=== PATIENT | female | born 1950 | race Caucasian/White ===

== ENCOUNTER 2017-06-08 17:26 | Inpatient (IN) ==
[2017-06-08] MEDS ORDERED: Aspirin 81 MG TAB.CHEW PO STA (17:36)
--- NOTE | 2017-06-08 17:45 | Emergency Department Note ---
Disposition Clinical Impression: Atrial fibrillation Qualifiers: Atrial fibrillation type: paroxysmal Qualified Code(s): I48.0 - Paroxysmal atrial fibrillation Disposition: Admitted As Inpatient Condition: Good Referrals: Dennys Mckeon DO [Primary Care Provider] - Forms: ED Satisfaction Letter Time of Disposition: 18:46 General Adult HPI - General Stated complaint: "afib" Time Seen by Provider: 06/08/17 17:29 Nursing Notes Reviewed: Yes Vital Signs Reviewed: Yes - History of Present Illness HPI Narrative: Patient sent by Dr. Serna for an abnormal Holter monitor. Patient states that she did have an episode of chest pain on Sunday 4 days ago as well as Sunday 6 days ago. Denies any chest pain at this time. - Related Data Home Medications Medication Instructions Recorded Confirmed Albuterol Sulfate [Albuterol 2 puff IH Q6HR 11/15/14 06/08/17 Inhaler] Atorvastatin [Lipitor] 40 mg PO QPM 11/15/14 06/08/17 Gabapentin [Neurontin] 600 mg PO BID 11/15/14 06/08/17 Montelukast [Singulair] 10 mg PO DAILY PRN 11/15/14 06/08/17 Omeprazole [PriLOSEC] 20 mg PO DAILY 11/15/14 06/08/17 Budesonide/Formoterol 160/4.5 2 puff IH BIDR 06/08/17 06/08/17 [Symbicort 160/4.5] Ferrous Sulfate [Ferrous Sulfate] 325 mg PO DAILY 06/08/17 06/08/17 Metoprolol XL (24 HR) Succ [Toprol 50 mg PO DAILY 06/08/17 06/08/17 XL] Risedronate Sodium [Actonel] 35 mg PO MO 06/08/17 06/08/17 Tramadol HCl [Ultram] 50 mg PO Q8H PRN 06/08/17 06/08/17 predniSONE [PredniSONE] 10 mg PO DAILY 06/08/17 06/08/17 Previous Rx's Medication Instructions Recorded Aspirin 81 mg PO DAILY 30 Days tab.chew 11/17/14 Rivaroxaban [Xarelto] 20 mg PO 1700 30 Days tablet 11/17/14 Allergies Allergy/AdvReac Type Severity Reaction Status Date / Time codeine AdvReac See Verified 11/15/14 14:30 Comments All systems ED: reviewed and negative except as stated. Constitutional: Denies: fever, chills ENT ED: Reports: congestion Cardiovascular: Reports: chest pain (Not at this time. Did have an episode on Sunday as well as Sunday.), palpitations (Regional. None at this time.) Respiratory: Reports: cough. Denies: dyspnea Gastrointestinal: Denies: abdominal pain, nausea, vomiting, diarrhea Musculoskeletal: Denies: back pain, neck pain Integumentary: Denies: rash Neurological: Denies: headache, weakness Past Medical History - Past Medical History Attestation: Yes The following information was validated with the patient. Source: patient Medical history: Reports: asthma, atrial fibrillation, COPD, coronary artery disease, GERD, hyperlipidemia, hypertension, other Surgical history: Reports: carotid endarterectomy, cholecystectomy, coronary bypass (CABG), hysterectomy Psychiatric history: Reports: no psych history - Social History Smoking Status: Former smoker Smokeless Tobacco Status: No Alcohol use: Reports: none Drug use: Reports: none Physical Exam - General Limitations: no limitations General appearance: alert, in no apparent distress - Head Head exam: atraumatic, normocephalic, normal inspection - Eye Eye exam: Present: normal appearance, PERRL, EOMI. Absent: scleral icterus - ENT ENT exam: normal exam, normal oropharynx, mucous membranes moist - Neck Neck exam: Present: normal inspection, full ROM, trachea midline - Chest Chest inspection: Present: normal inspection, symmetric chest wall rise - Respiratory Respiratory exam: Present: wheezes (Mild), prolonged expiratory phase. Absent: respiratory distress, accessory muscle use - Cardiovascular Cardiovascular exam: Present: regular rate, normal rhythm - Abdominal Exam Abdominal exam: Present: soft, Non-Tender. Absent: tenderness, distention, guarding, rebound, rigidity, organomegaly - Extremities Exam Extremities exam: Present: normal inspection, full ROM. Absent: tenderness, pedal edema - Neurological Exam Neurological exam: Present: alert, oriented X3 - Psychiatric Psychiatric exam: Present: normal affect, normal mood - Skin Skin exam: Present: warm, dry, intact, normal color Course Course Narrative: Well appearing female patient ambulates without difficulty. She was sent here by Dr. Serna for an abnormal Holter monitor. States that she went into atrial fibrillation several times. Have a history of A. fib and is on xaralto. Dates that she had to be shocked 3 times being in atrial fibrillation before. She also states that she did have an episode of chest pain on Sunday night as well as on Sunday night. She denies any chest pain at this time. She is talking in full sentences and does not appear to be in any distress. Her lung sounds have some faint wheezing throughout. Her heart tones are normal. She is not in atrial fibrillation at this time. We will get a basic workup on patient and admitted to the hospital. Her Holter monitor did show several runs of V. tach as well as SVT and A. fib. She does have an elevated troponin at 0.2. We have given patient aspirin. She has had no episodes of chest pain on the emergency department. - Consultations Consultation #1: Dr Noble accepted Pt in stable condition. Time: 18:41 Vital Signs Temperature 98.9 F 06/08/17 17:39 Pulse Rate 78 06/08/17 17:39 Respiratory Rate 18 06/08/17 17:39 Blood Pressure 212/77 06/08/17 17:39 O2 Sat by Pulse Oximetry 99 06/08/17 17:39 Temperature 98.9 F 06/08/17 17:39 Pulse Rate 78 06/08/17 17:39 Respiratory Rate 18 06/08/17 17:39 Blood Pressure 212/77 06/08/17 17:39 O2 Sat by Pulse Oximetry 99 06/08/17 17:39 Oxygen Delivery Oxygen Delivery Room Air Medical Decision Making - Medical Records Medical records reviewed: Yes I reviewed the patient's medical records. - Lab Data Lab results reviewed: Yes I reviewed the patient's lab results. Result diagrams: 06/08/17 17:29 06/08/17 17:29 Lab Results 06/08/17 06/08/17 06/08/17 Range/Units 17:29 17:29 17:29 WBC 16.7 H (4.3-11.1) K/mcL RBC 4.45 (3.82-4.97) M/mcL Hgb 13.5 (11.5-15.4) g/dL Hct 41.1 (35.3-44.9) % MCV 92.4 (83.0-100.0) fL MCH 30.3 (28.0-33.3) pg MCHC 32.8 (31.6-35.5) g/dL RDW 14.1 (11.5-14.5) % Plt Count 304 (140-400) K/mcL MPV 10.2 (9.4-12.4) fL Immature Gran % 1.0 (0-4) % Seg Neutrophils % 82.6 % Lymphocytes % 10.0 % Monocytes % 5.8 % Eosinophils % 0.4 % Basophils % 0.2 % Neutrophils # 13.8 H (1.6-8.9) K/mcL Lymphocytes # 1.7 (0.6-4.6) K/mcL Monocytes # 1.0 (0.0-1.3) K/mcL Eosinophils # 0.1 (0.0-0.6) K/mcL Basophils # 0.0 (0.0-0.2) K/mcL PT 15.9 H (9.4-12.1) Seconds INR 1.5 APTT 42.1 H (26.0-36.0) Seconds Sodium 135 L (136-145) mEq/L Potassium 4.0 (3.5-5.1) mEq/L Chloride 102 (98-107) mEq/L Carbon Dioxide 27 (23-29) mEq/L BUN 14 (8-23) mg/dL Creatinine 1.14 (0.60-1.20) mg/dL Est GFR ( Amer) 57 L (> 60) Est GFR (Non-Af Amer) 47 L (> 60) BUN/Creatinine Ratio 12 (6-26) Glucose 98 (70-105) mg/dL Calculated Osmolality 280 (280-300) Calcium 9.2 (8.6-10.3) mg/dL Magnesium (1.6-2.6) mg/dL Troponin I 0.23 H* (< 0.04) ng/mL TSH 0.224 L (0.340-5.600) mcIU/mL 06/08/17 Range/Units 17:30 WBC (4.3-11.1) K/mcL RBC (3.82-4.97) M/mcL Hgb (11.5-15.4) g/dL Hct (35.3-44.9) % MCV (83.0-100.0) fL MCH (28.0-33.3) pg MCHC (31.6-35.5) g/dL RDW (11.5-14.5) % Plt Count (140-400) K/mcL MPV (9.4-12.4) fL Immature Gran % (0-4) % Seg Neutrophils % % Lymphocytes % % Monocytes % % Eosinophils % % Basophils % % Neutrophils # (1.6-8.9) K/mcL Lymphocytes # (0.6-4.6) K/mcL Monocytes # (0.0-1.3) K/mcL Eosinophils # (0.0-0.6) K/mcL Basophils # (0.0-0.2) K/mcL PT (9.4-12.1) Seconds INR APTT (26.0-36.0) Seconds Sodium (136-145) mEq/L Potassium (3.5-5.1) mEq/L Chloride (98-107) mEq/L Carbon Dioxide (23-29) mEq/L BUN (8-23) mg/dL Creatinine (0.60-1.20) mg/dL Est GFR ( Amer) (> 60) Est GFR (Non-Af Amer) (> 60) BUN/Creatinine Ratio (6-26) Glucose (70-105) mg/dL Calculated Osmolality (280-300) Calcium (8.6-10.3) mg/dL Magnesium 2.0 (1.6-2.6) mg/dL Troponin I (< 0.04) ng/mL TSH (0.340-5.600) mcIU/mL - Radiology Data Radiology results reviewed: Yes I reviewed the patient's radiology results. Chest X-Ray 06/08/17 17:29 IMPRESSION: Negative portable chest. D/ / Bijan Flores MD / Bijan Flores MD Interpreting Provider: Bijan Flores MD - EKG Data EKG #1 EKG attestation: Yes I reviewed and interpreted this EKG. EKG results narrative: Normal sinus rhythm at a rate of 75. Her intervals 105. QRS duration is 101. QT is 389. QTC is 418. No signs of acute ischemia. Patient does have some diffuse ST depressions with no elevations noted. This EKG dated 11/15/2014 showed patient in A. fib with RVR at 156.
[2017-06-08 17:53] LABS: Basophils % 0.2 %; Eosinophils # 0.1 K/mcL (0.0-0.6); Eosinophils % 0.4 %; Hematocrit 41.1 % (35.3-44.9); Hemoglobin 13.5 g/dL (11.5-15.4); Lymphocytes # 1.7 K/mcL (0.6-4.6); Mean Corpuscular HGB Conc 32.8 g/dL (31.6-35.5); Mean Corpuscular Hemoglobin 30.3 pg (28.0-33.3); Mean Corpuscular Volume 92.4 fL (83.0-100.0); Mean Platelet Volume 10.2 fL (9.4-12.4); Monocytes % 5.8 %; Neutrophils # 13.8 K/mcL (1.6-8.9); Platelet Count 304 K/mcL (140-400); Red Blood Count 4.45 M/mcL (3.82-4.97); Red Cell Distribution Width 14.1 % (11.5-14.5); Segmented Neutrophils % 82.6 %
[2017-06-08 18:04] LABS: INR 1.5; Prothrombin Time 15.9 Seconds (9.4-12.1)
--- NOTE | 2017-06-08 18:04 | Emergency Department Note ---
Disposition Clinical Impression: Atrial fibrillation Qualifiers: Atrial fibrillation type: paroxysmal Qualified Code(s): I48.0 - Paroxysmal atrial fibrillation Disposition: Admitted As Inpatient Condition: Good Referrals: Dennys Mckeon DO [Primary Care Provider] - Forms: ED Satisfaction Letter General Adult HPI - General Chief complaint: ED Arrhythmia/Palpitations Stated complaint: "afib" Time Seen by Provider: 06/08/17 17:29 Source: patient Limitations: no limitations - History of Present Illness Pain Scale: 0 - Related Data Home Medications Medication Instructions Recorded Confirmed Albuterol Sulfate [Albuterol 2 puff IH Q6HR 11/15/14 06/08/17 Inhaler] Atorvastatin [Lipitor] 40 mg PO QPM 11/15/14 06/08/17 Gabapentin [Neurontin] 600 mg PO BID 11/15/14 06/08/17 Montelukast [Singulair] 10 mg PO DAILY PRN 11/15/14 06/08/17 Omeprazole [PriLOSEC] 20 mg PO DAILY 11/15/14 06/08/17 Budesonide/Formoterol 160/4.5 2 puff IH BIDR 06/08/17 06/08/17 [Symbicort 160/4.5] Ferrous Sulfate [Ferrous Sulfate] 325 mg PO DAILY 06/08/17 06/08/17 Metoprolol XL (24 HR) Succ [Toprol 50 mg PO DAILY 06/08/17 06/08/17 XL] Risedronate Sodium [Actonel] 35 mg PO MO 06/08/17 06/08/17 Tramadol HCl [Ultram] 50 mg PO Q8H PRN 06/08/17 06/08/17 predniSONE [PredniSONE] 10 mg PO DAILY 06/08/17 06/08/17 Previous Rx's Medication Instructions Recorded Aspirin 81 mg PO DAILY 30 Days tab.chew 11/17/14 Rivaroxaban [Xarelto] 20 mg PO 1700 30 Days tablet 11/17/14 Allergies Allergy/AdvReac Type Severity Reaction Status Date / Time codeine AdvReac See Verified 11/15/14 14:30 Comments Past Medical History - Past Medical History Medical history: Reports: asthma, atrial fibrillation, COPD, coronary artery disease, GERD, hyperlipidemia, hypertension, other Surgical history: Reports: carotid endarterectomy, cholecystectomy, coronary bypass (CABG), hysterectomy Psychiatric history: Reports: no psych history - Social History Smoking Status: Former smoker Smokeless Tobacco Status: No Alcohol use: Reports: none Drug use: Reports: none Physical Exam - General Limitations: no limitations General appearance: alert, in no apparent distress Course Vital Signs Temperature 98.9 F 06/08/17 17:39 Pulse Rate 78 06/08/17 17:39 Respiratory Rate 18 06/08/17 17:39 Blood Pressure 212/77 06/08/17 17:39 O2 Sat by Pulse Oximetry 99 06/08/17 17:39 Temperature 98.9 F 06/08/17 17:39 Pulse Rate 78 06/08/17 17:39 Respiratory Rate 18 06/08/17 17:39 Blood Pressure 212/77 06/08/17 17:39 O2 Sat by Pulse Oximetry 99 06/08/17 17:39 Oxygen Delivery Oxygen Delivery Room Air Medical Decision Making - Lab Data Result diagrams: 06/08/17 17:29 06/08/17 17:29 Lab Results 06/08/17 06/08/17 06/08/17 Range/Units 17:29 17:29 17:29 WBC 16.7 H (4.3-11.1) K/mcL RBC 4.45 (3.82-4.97) M/mcL Hgb 13.5 (11.5-15.4) g/dL Hct 41.1 (35.3-44.9) % MCV 92.4 (83.0-100.0) fL MCH 30.3 (28.0-33.3) pg MCHC 32.8 (31.6-35.5) g/dL RDW 14.1 (11.5-14.5) % Plt Count 304 (140-400) K/mcL MPV 10.2 (9.4-12.4) fL Immature Gran % 1.0 (0-4) % Seg Neutrophils % 82.6 % Lymphocytes % 10.0 % Monocytes % 5.8 % Eosinophils % 0.4 % Basophils % 0.2 % Neutrophils # 13.8 H (1.6-8.9) K/mcL Lymphocytes # 1.7 (0.6-4.6) K/mcL Monocytes # 1.0 (0.0-1.3) K/mcL Eosinophils # 0.1 (0.0-0.6) K/mcL Basophils # 0.0 (0.0-0.2) K/mcL PT 15.9 H (9.4-12.1) Seconds INR 1.5 APTT 42.1 H (26.0-36.0) Seconds Sodium 135 L (136-145) mEq/L Potassium 4.0 (3.5-5.1) mEq/L Chloride 102 (98-107) mEq/L Carbon Dioxide 27 (23-29) mEq/L BUN 14 (8-23) mg/dL Creatinine 1.14 (0.60-1.20) mg/dL Est GFR ( Amer) 57 L (> 60) Est GFR (Non-Af Amer) 47 L (> 60) BUN/Creatinine Ratio 12 (6-26) Glucose 98 (70-105) mg/dL Calculated Osmolality 280 (280-300) Calcium 9.2 (8.6-10.3) mg/dL Magnesium (1.6-2.6) mg/dL Troponin I 0.23 H* (< 0.04) ng/mL TSH 0.224 L (0.340-5.600) mcIU/mL 06/08/17 Range/Units 17:30 WBC (4.3-11.1) K/mcL RBC (3.82-4.97) M/mcL Hgb (11.5-15.4) g/dL Hct (35.3-44.9) % MCV (83.0-100.0) fL MCH (28.0-33.3) pg MCHC (31.6-35.5) g/dL RDW (11.5-14.5) % Plt Count (140-400) K/mcL MPV (9.4-12.4) fL Immature Gran % (0-4) % Seg Neutrophils % % Lymphocytes % % Monocytes % % Eosinophils % % Basophils % % Neutrophils # (1.6-8.9) K/mcL Lymphocytes # (0.6-4.6) K/mcL Monocytes # (0.0-1.3) K/mcL Eosinophils # (0.0-0.6) K/mcL Basophils # (0.0-0.2) K/mcL PT (9.4-12.1) Seconds INR APTT (26.0-36.0) Seconds Sodium (136-145) mEq/L Potassium (3.5-5.1) mEq/L Chloride (98-107) mEq/L Carbon Dioxide (23-29) mEq/L BUN (8-23) mg/dL Creatinine (0.60-1.20) mg/dL Est GFR ( Amer) (> 60) Est GFR (Non-Af Amer) (> 60) BUN/Creatinine Ratio (6-26) Glucose (70-105) mg/dL Calculated Osmolality (280-300) Calcium (8.6-10.3) mg/dL Magnesium 2.0 (1.6-2.6) mg/dL Troponin I (< 0.04) ng/mL TSH (0.340-5.600) mcIU/mL Critical Care Time Critical Care Time: No Attestation Statement - Attestation Attestation: I examined this patient and my medical decision-making was reviewed with the Resident Physician. I agree with the documented findings, disposition and treatment plan as described except to the extent set forth below. Patient was instructed to come to the ED by cardiology for an abnormal Holter monitor. Patient has a history of A. fib. She had a Holter monitor on that was showing A. fib, SVT, and NSVT. On examination she is awake and alert and pleasant. She is in no distress. Heart regular rate and rhythm on my evaluation. Plan. Patient is anticoagulated. She is in normal sinus this time , however she does have multiple runs of abnormal rhythms or Holter monitor. Will admit for cardiac monitoring. Patient with elevated troponin. No chest pain. Patient's been given an aspirin. Admitted to medicine.
[2017-06-08 18:07] LABS: Activated Partial Thrombo Time 42.1 Seconds (26.0-36.0)
[2017-06-08 18:18] LABS: Calcium 9.2 mg/dL (8.6-10.3)
[2017-06-08 18:26] LABS: Troponin I 0.23 ng/mL (< 0.04)
[2017-06-08 18:31] LABS: Thyroid Stimulating Hormone 0.224 mcIU/mL (0.340-5.600)
[2017-06-08] MEDS ORDERED: Naloxone 0.4 MG/ML INJ IVP PRN (20:58)
[2017-06-08] MEDS ORDERED: traMADol 50 MG TABLET PO PRN (21:01)
[2017-06-08] MEDS ORDERED: *HR* Heparin 5,000 UNIT/ML VIAL IVP ONE (21:15)
[2017-06-08] MEDS ORDERED: *HR* Heparin 5,000 UNIT/ML VIAL IVP PRN ×2 (21:15)
--- NOTE | 2017-06-08 21:18 | Internal Med History&Physical ---
Date of Encounter: 06/08/17 Time of Encounter: 21:11 Internal Medicine - H&P: HPI Admitted From: Home Plans for Post Hospital Care: Home History of present illness: Ms. Perez is a 66 year old female with history of CAD status post CABG, A. fib on Xarelto and beta katina, COPD on maintenance prednisone was sent to ER by Dr. Serna for an abnormal Holter monitor with suspicious V. tach. For last 2 weeks patient had intermittent chest pain with palpitation therefore seen by her windows systems engineer's office who did perform echocardiogram with no new finding as per patient and also put on Holter monitor. Today she got call from windows systems engineer's office to come to the hospital immediately for further workup. In ER patient was in normal sinus rhythm with slight prolonged QT interval and diffuse ST depression on monitor. Initial troponin raised 0.23 but no active chest pain. Aspirin was given in the ER for the admission chest pain rule out ACS with cardiac arrhythmia. During my interview patient was chest pain free. Past Med Surg Social Fam HX - Past Medical History Medical history: asthma, atrial fibrillation, COPD, coronary artery disease, GERD, hyperlipidemia, hypertension, other Psychiatric history: no psych history - Past Surgical History Surgical History: carotid endarterectomy, cholecystectomy, coronary bypass (CABG ), hysterectomy - Social History Smoking Status: Former smoker Smokeless Tobacco Status: No Alcohol use: none Drug use: none Internal Medicine - H&P: Meds Albuterol Sulfate [Albuterol Inhaler] 2 puff IH Q6HR 11/15/14 [History] Atorvastatin [Lipitor] 40 mg PO QPM 11/15/14 [History] Gabapentin [Neurontin] 600 mg PO BID 11/15/14 [History] Montelukast [Singulair] 10 mg PO DAILY PRN 11/15/14 [History] Omeprazole [PriLOSEC] 20 mg PO DAILY 11/15/14 [History] Aspirin 81 mg PO DAILY 30 Days tab.chew 11/17/14 [Rx] Rivaroxaban [Xarelto] 20 mg PO 1700 30 Days tablet 11/17/14 [Rx] Budesonide/Formoterol 160/4.5 [Symbicort 160/4.5] 2 puff IH BIDR 06/08/17 [ History] Ferrous Sulfate [Ferrous Sulfate] 325 mg PO DAILY 06/08/17 [History] Metoprolol XL (24 HR) Succ [Toprol XL] 50 mg PO DAILY 06/08/17 [History] Risedronate Sodium [Actonel] 35 mg PO MO 06/08/17 [History] Tramadol HCl [Ultram] 50 mg PO Q8H PRN 06/08/17 [History] predniSONE [PredniSONE] 10 mg PO DAILY 06/08/17 [History] 3 Allergy/AdvReac Type Severity Reaction Status Date / Time codeine AdvReac See Verified 11/15/14 14:30 Comments All Systems PM: A 10-system review of systems was performed and is negative for pertinent findings except as documented above in the HPI. - Constitutional Vitals: Temp Pulse Resp BP Pulse Ox 98.9 F 59 16 180/76 97 06/08/17 17:39 06/08/17 19:15 06/08/17 20:47 06/08/17 20:47 06/08/17 19:15 Exam: General appearance: No acute distress, A&O X 3. Family at bedside Head exam: Atraumatic Eye exam: EOMI, PERRLA ENT exam: Moist oral mucosa Neck nontender, supple Respiratory exam: Clear to auscultation bilaterally Cardiovascular exam: Regular rate and rhythm, no systolic murmur Abdominal exam: Soft, nontender, nondistended, positive bowel sounds Extremities exam: No calf tenderness, no pedal edema Present: Skin-no rash, warm, dry, intact Neurological exam: Alert, awake, oriented 3, CN II-XII intact, no focal deficits. No facial droop. Normal speech. Internal Med - H&P Results - Labs CBC & Chem 7: 06/08/17 17:29 06/08/17 17:29 - Assessment and plan (1) Chest pain Current Visit: Yes Status: Acute Assessment and plan: History of CAD. High risk patient. No active chest pain but had intermittently for last to 2 weeks. Raised troponin. Serial troponin ordered. Continue home medicine except xarelto after discussing with windows systems engineer. Started heparin drip. Possible heart catheter tomorrow morning. Keep patient nothing by mouth after midnight Qualifiers: Chest pain type: chest pain due to myocardial ischemia Ischemic chest pain type: unstable angina pectoris Qualified Code(s): I20.0 - Unstable angina (2) Cardiac arrhythmia Current Visit: Yes Status: Acute Assessment and plan: Patient already had history of A. fib but recent V. tach findings on Holter monitor. Keep patient in telemetry. Plan for possible LHC tomorrow. Linen Clerk notified Qualifiers: Arrhythmia type: atrial fibrillation Atrial fibrillation type: chronic Qualified Code(s): I48.2 - Chronic atrial fibrillation (3) COPD (chronic obstructive pulmonary disease) Current Visit: Yes Status: Chronic Assessment and plan: Stable. Patient does not appear in COPD exacerbation therefore will continue home medication including prednisone 10 mg daily. No IV steroid is planned at this time. Continue pulse ox. Qualifiers: COPD type: unspecified COPD Qualified Code(s): J44.9 - Chronic obstructive pulmonary disease, unspecified (4) Abnormal TSH Current Visit: Yes Status: Acute Assessment and plan: History of thyroid problem. Low TSHs therefore free T4 ordered to rule out hyperthyroidism. Patient may need ultrasound of thyroid or pheresis nurse consultation. (5) Hypertension Current Visit: Yes Status: Acute Assessment and plan: High blood pressure. Continue beta katina. Hydralazine when necessary. Close monitoring. Qualifiers: Hypertension type: essential hypertension Qualified Code(s): I10 - Essential (primary) hypertension (6) DVT prophylaxis Current Visit: Yes Status: Acute Assessment and plan: At present patient is on heparin drip. - Time Spent With Patient Total time spent is greater than 50% in coordination of care (as documented) at patient's floor/unit and/or counseling patient: 25 - 35 minutes
[2017-06-08 21:42] LABS: Hematocrit 38.8 % (35.3-44.9); Hemoglobin 12.6 g/dL (11.5-15.4); Mean Corpuscular HGB Conc 32.5 g/dL (31.6-35.5); Mean Corpuscular Hemoglobin 29.6 pg (28.0-33.3); Mean Corpuscular Volume 91.3 fL (83.0-100.0); Mean Platelet Volume 10.4 fL (9.4-12.4); Platelet Count 275 K/mcL (140-400); Red Blood Count 4.25 M/mcL (3.82-4.97); Red Cell Distribution Width 14.1 % (11.5-14.5)
[2017-06-08 21:48] LABS: INR 1.6; Prothrombin Time 17.6 Seconds (9.4-12.1)
[2017-06-08] MEDS: Heparin 25,000 UNIT/500 ML D5W 25,000 UNIT/500 ML BAG IVC SCH (22:08)
[2017-06-08] MEDS: Budesonide/Formoterol 160/4.5 MDI IH SCH (23:07)
[2017-06-08] MEDS: Levalbuterol Neb 1.25 MG/3 ML IH SCH (23:07)
[2017-06-09 02:01] LABS: Bilirubin,Urine Negative (Negative); Blood,Urine Negative (Negative); Clarity,Urine Clear (Clear); Color,Urine Yellow (Yellow); Glucose,Urine (UA) Normal (Normal); Ketones,Urine Negative (Negative); Leukocyte Esterase,Urine Negative (Negative); Nitrite,Urine Negative (Negative); Protein,Urine Negative (Neg-Trace); Urobilinogen,Urine Normal (Normal)
[2017-06-09] MEDS: Levalbuterol Neb 1.25 MG/3 ML IH SCH ×4 (03:48→22:28)
[2017-06-09 04:03] LABS: Basophils % 0.2 %; Eosinophils # 0.2 K/mcL (0.0-0.6); Eosinophils % 1.7 %; Hematocrit 36.2 % (35.3-44.9); Hemoglobin 11.9 g/dL (11.5-15.4); Immature Granulocytes % 0.9 % (0-4); Lymphocytes # 3.3 K/mcL (0.6-4.6); Lymphocytes % 23.7 %; Mean Corpuscular HGB Conc 32.9 g/dL (31.6-35.5); Mean Corpuscular Hemoglobin 29.7 pg (28.0-33.3); Mean Corpuscular Volume 90.3 fL (83.0-100.0); Mean Platelet Volume 10.6 fL (9.4-12.4); Monocytes % 7.1 %; Neutrophils # 9.3 K/mcL (1.6-8.9); Platelet Count 250 K/mcL (140-400); Red Blood Count 4.01 M/mcL (3.82-4.97); Red Cell Distribution Width 14.1 % (11.5-14.5); Segmented Neutrophils % 66.4 %
[2017-06-09 04:24] LABS: BUN/Creatinine Ratio 12 (6-26); Blood Urea Nitrogen 10 mg/dL (8-23); Calcium 8.6 mg/dL (8.6-10.3); Carbon Dioxide 29 mEq/L (23-29); Chloride 103 mEq/L (98-107); Glucose 90 mg/dL (70-105); Osmolality,Calculated 283 (280-300); Potassium 3.7 mEq/L (3.5-5.1); Sodium 137 mEq/L (136-145); eGFR For African Americans > 60 (> 60); eGFR For Non-African Americans > 60 (> 60)
[2017-06-09 04:31] LABS: Activated Partial Thrombo Time > 360.0 Seconds (26.0-36.0)
[2017-06-09 04:47] LABS: Heparin anti-factor XA UFH 1.27 IU/mL (0.30-0.70)
--- NOTE | 2017-06-09 08:42 | Electrocardiograph Report ---
Test Date: 2017-06-08 Pat Name: Nery Perez Department: 104 Room: 2NE21 Gender: F Rn Renal: YARELIS : 1950 Requested By: Daysi Rubio Order Number: [id number] Reading MD: Tiny Little Measurements Intervals Ama Rate: 75 P: 34 SC: 105 QRS: -30 QRSD: 101 T: 4 QT: 389 QTc: 418 Interpretive Statements SINUS RHYTHM WITH SHORT SC INTERVAL LEFT VENTRICULAR HYPERTROPHY AND ST-T CHANGE [VOLTAGE CRITERIA PLUS ST/T ABNORMALITY] POSSIBLE SEPTAL MYOCARDIAL INFARCTION [30 ms Q WAVE IN V1/V2], OF INDETERMINATE AGE Electronically Signed On 06-09-2017 8:41:03 EDT by Tiny Little
[2017-06-09] MEDS: Metoprolol XL (24 HR) Succ 50 MG TAB.ER.24H PO SCH (08:50)
[2017-06-09] MEDS: Gabapentin 300 MG CAPSULE PO SCH ×2 (08:51→20:48)
[2017-06-09] MEDS: Aspirin 81 MG TAB.CHEW PO SCH (08:51)
[2017-06-09] MEDS: predniSONE 10 MG TABLET PO SCH (08:51)
--- NOTE | 2017-06-09 10:56 | Internal Med Progress Note ---
Date of Encounter: 06/09/17 Time of Encounter: 10:54 - Assessment and plan (1) Chest pain Current Visit: Yes Status: Acute Assessment and plan: Elevated troponins possibly from demand ischemia, non-STEMI is being considered Continue heparin drip until cardiology avoids the patient. Hold xarelto Continue metoprolol, atorvastatin and nitroglycerin when necessary History of CAD. No active chest pain but had intermittently for last to 2 weeks. Raised troponin. Troponins peaked at 0.24 and remained adynamic. Possible [facility] Qualifiers: Chest pain type: chest pain due to myocardial ischemia Ischemic chest pain type: unstable angina pectoris Qualified Code(s): I20.0 - Unstable angina (2) Cardiac arrhythmia Current Visit: Yes Status: Acute Assessment and plan: Patient already had history of A. fib but recent nonsustained V. tach findings on Holter monitor. Keep patient in telemetry. Textile Machine Mechanic consulted Qualifiers: Arrhythmia type: atrial fibrillation Atrial fibrillation type: chronic Qualified Code(s): I48.2 - Chronic atrial fibrillation (3) COPD (chronic obstructive pulmonary disease) Current Visit: Yes Status: Chronic Assessment and plan: Stable. Patient does not appear in COPD exacerbation therefore will continue home medication including prednisone 10 mg daily. No IV steroid is planned at this time. Continue pulse ox. Qualifiers: COPD type: unspecified COPD Qualified Code(s): J44.9 - Chronic obstructive pulmonary disease, unspecified (4) Abnormal TSH Current Visit: Yes Status: Acute Assessment and plan: History of thyroid problem. Low TSHs therefore with normal free T4 , unlikely hyperthyroidism, no clinical symptoms of thyrotoxicosis (5) Hypertension Current Visit: Yes Status: Acute Assessment and plan: Accelerated hypertension Continue beta katina. Hydralazine when necessary. Start lisinopril and amlodipine Qualifiers: Hypertension type: essential hypertension Qualified Code(s): I10 - Essential (primary) hypertension - Time Spent With Patient Total time spent is greater than 50% in coordination of care (as documented) at patient's floor/unit and/or counseling patient: - Subjective Interval history: Denies any palpitations, chest pain, shortness of breath, no abdominal pain or dysuria, no diarrhea or fevers - Constitutional Vitals: Temp Pulse Resp BP Pulse Ox 98.3 F 72 15 158/58 96 06/09/17 07:23 06/09/17 07:23 06/09/17 07:23 06/09/17 07:23 06/09/17 07:23 General appearance: Present: A&O X 3 - Head Head exam: Present: atraumatic, normocephalic - Eye Eye exam: Present: PERRL, conjuntiva pink, sclera anicteric Pupils: Present: PERRL - Neck Neck exam general surgery: Present: supple, trachea midline. Absent: lymphadenopathy - Respiratory Respiratory exam: Present: CTAB. Absent: accessory muscle use, rales, rhonchi, wheezes - Cardiovascular Cardiovascular exam: Present: RRR, +S1, +S2. Absent: diastolic murmur, gallop, rubs, systolic murmur - GI/Abdominal GI/Abdominal exam: Present: normal bowel sounds, soft, no peritoneal signs. Absent: distended, tenderness - Extremities Exam Extremities exam: Present: warm, radial pulses palpable and symmetrical. Absent : calf tenderness, cyanotic, pedal edema - Neurological Exam Neurological exam: Present: CN II-XII intact, oriented X3, no focal deficits. Absent: pronater drift, facial droop, speech deficit - Skin Skin exam: Present: dry, intact Internal Medicine: Result - Labs CBC & Chem 7: 06/09/17 03:48 06/09/17 03:48 Labs: Short CBC 06/08/17 06/09/17 Range/Units 21:30 03:48 WBC 16.1 H 14.0 H (4.3-11.1) K/mcL Hgb 12.6 11.9 (11.5-15.4) g/dL Hct 38.8 36.2 (35.3-44.9) % Plt Count 275 250 (140-400) K/mcL Neutrophils # 9.3 H (1.6-8.9) K/mcL BMP 06/09/17 03:48 Sodium 137 Potassium 3.7 Chloride 103 Carbon Dioxide 29 BUN 10 Creatinine 0.81 Glucose 90 Calcium 8.6 Cardiac Enzymes 06/08/17 06/09/17 06/09/17 Range/Units 21:30 03:48 09:37 Troponin I 0.24 H* 0.23 H* 0.24 H* (< 0.04) ng/mL Urine 06/09/17 Range/Units 00:20 Urine Color Yellow (Yellow) Urine Clarity Clear (Clear) Urine pH 7.0 (5.0-8.0) pH Units Ur Specific [place] 1.010 (1.010-1.025) Urine Protein Negative (Neg-Trace) mg/dL Urine Glucose (UA) Normal (Normal) mg/dL - ABG Interpretation ABG results: PT/INR, D-dimer PT 17.6 Seconds (9.4-12.1) H 06/08/17 21:30 Consult Discharge Plan - Plan Referrals: Dennys Mckeno DO [Primary Care Provider] -
[2017-06-09] MEDS: Budesonide/Formoterol 160/4.5 MDI IH SCH ×2 (11:00→22:28)
[2017-06-09] MEDS: Lisinopril 20 MG TABLET PO SCH (11:18)
[2017-06-09] MEDS: amLODIPine 5 MG TABLET PO SCH (11:18)
--- NOTE | 2017-06-09 15:00 | Cardiology Consult Note ---
Date of Encounter: 06/09/17 Time of Encounter: 14:30 Assessment and Plan (1) Ventricular tachycardia Current Visit: Yes Status: Acute Per cardiology: -Had episodes of ventricular tachycardia on holter . -Tele reviewed with no significant events since admission. -On beta katina. -PLan for possible ischemic eval on Sunday if no change in clinical condition. (2) Chest pain Current Visit: Yes Status: Acute Per cardiology: -Patient reported chest pain as outpatient. -States was crushing chest pain that radiated to bilateral arms. -Troponins elevated. -Denies current chest pain. -On asa, statin, beta block, heparin drip. -TTE 05/30/17 with LVEF 60-65%, mild diastolic dysfunction, mild AR, no segmental wall motion abnormalities. -Plan for possible [facility] on Sunday. -will continue to monitor. Qualifiers: Chest pain type: chest pain due to myocardial ischemia Ischemic chest pain type: unspecified angina pectoris type Qualified Code(s): I25.9 - Chronic ischemic heart disease, unspecified (3) Atrial fibrillation Current Visit: Yes Status: Chronic Per cardiology: -Known PAF> -HAd epeisodes of a.fib RVR on Holter. -On beta katina, on xarelto for anticoagulation. -Hr current controlled. -Continue telemetry. -Continue heparin drip, continue to hold xarelto for possible [facility] sunday. Qualifiers: Atrial fibrillation type: paroxysmal Qualified Code(s): I48.0 - Paroxysmal atrial fibrillation (4) Elevated troponin Current Visit: Yes Status: Acute Per cardiology: -Troponins 0.23, 0.24, 0.23, 0.24 -Known history of CAD s/p CABG x2 vessels. -Denies current chest pain. -ECG with non-specific ST and T wave changes. -TTE 05/30/17 with LVEf preserved, no segmental wall motion abnormalities. -plan for ischemic evaluation this admsision. Discussion w patient/family: The assessment and plan as outlined above was discussed with the patient who expressed understanding and agreement. All questions were answered. Thank you for involving us in the care of your patient. Please call with any questions. Discussed and reviewed with Dr.Jennifer Little. History of Present Illness Consult date: 06/08/17 Requesting physician: Daysi Rubio Consult reason: abnormal holter monitor Chief complaint: abnormal holter monitor History of present illness: Ms. Perez is a 66 year old female with a relevant past medical history of PVD, carotid stenosis, a.fib, HTN, CAD s/p CABG x2 vessel, COPD who presented to [facility] after recommendations per primary j2ee developer for abnormal holter monitor. Patient reports has had some intermittent chest pain over the past couple of weeks. Does not relate symptoms to exertion. Patient denies current palpitations or fluttering. Denies current shortness of breath. Past Med Surg Social Fam HX - Past Medical History Attestation: Yes The following information was validated with the patient. Source: patient, old records reviewed Medical history: asthma, atrial fibrillation, COPD, coronary artery disease, GERD, hyperlipidemia, hypertension Psychiatric history: no psych history - Past Surgical History Surgical History: carotid endarterectomy, cholecystectomy, coronary bypass (CABG ), hysterectomy - Social History Smoking Status: Current every day smoker Packs per day: 0.5 Smokeless Tobacco Status: No Alcohol use: none Drug use: none Medications and Allergies Albuterol Sulfate [Albuterol Inhaler] 2 puff IH Q6HR 11/15/14 [History] Atorvastatin [Lipitor] 40 mg PO QPM 11/15/14 [History] Gabapentin [Neurontin] 600 mg PO BID 11/15/14 [History] Montelukast [Singulair] 10 mg PO DAILY PRN 11/15/14 [History] Omeprazole [PriLOSEC] 20 mg PO DAILY 11/15/14 [History] Aspirin 81 mg PO DAILY 30 Days tab.chew 11/17/14 [Rx] Rivaroxaban [Xarelto] 20 mg PO 1700 30 Days tablet 11/17/14 [Rx] Budesonide/Formoterol 160/4.5 [Symbicort 160/4.5] 2 puff IH BIDR 06/08/17 [ History] Ferrous Sulfate [Ferrous Sulfate] 325 mg PO DAILY 06/08/17 [History] Metoprolol XL (24 HR) Succ [Toprol XL] 50 mg PO DAILY 06/08/17 [History] Risedronate Sodium [Actonel] 35 mg PO MO 06/08/17 [History] Tramadol HCl [Ultram] 50 mg PO Q8H PRN 06/08/17 [History] predniSONE [PredniSONE] 10 mg PO DAILY 06/08/17 [History] 3 Allergy/AdvReac Type Severity Reaction Status Date / Time codeine AdvReac See Verified 11/15/14 14:30 Comments All Systems Review: The remainder of the systems were reviewed and are negative - Cardiovascular Cardiovascular: as per HPI, chest pain at rest Physical Examination Vital Signs, Last 4 Hours Temp Pulse Resp BP Pulse Ox 06/09/17 11:11 97.7 F 64 15 155/57 100 General: Conversant, No Apparent Distress HEENT: Atraumatic, Normocephaly, Mucus Membranes Moist Neck: No JVD, Normal carotid pulses Cardiac: Reg Rate and Rhythm, Normal S1 and S2, No Murmur Lungs: Normal Breath Sounds, No Wheeze, Rales, Rhonchi Neuro: Alert and responsive, No focal deficits noted Abdomen: Soft, Non-Tender Skin: No rashes noted on visualized skin Musculoskeletal: No Chest Wall Tenderness Extremities: No Clubbing, No Cyanosis, No Edema, Normal Pulses Results 06/09/17 03:48 06/09/17 03:48 Lab Results Impressions Chest X-Ray 06/08/17 17:29 IMPRESSION: Negative portable chest. D/ / Bijan Flores MD / Bijan Flores MD Interpreting Provider: Bijan Flores MD Active Medications Amlodipine Besylate (Norvasc) 5 mg PO DAILY [facility] PRN Reason: Protocol Stop: 12/09/17 11:01 Last Admin: 06/09/17 11:18 Dose: 5 mg Aspirin (Aspirin) 81 mg PO DAILY [facility] Stop: 12/09/17 09:01 Last Admin: 06/09/17 08:51 Dose: 81 mg Atorvastatin Calcium (Lipitor) 40 mg PO QPM [facility] Stop: 12/09/17 18:01 Budesonide/Formoterol Fumarate (Symbicort) 2 puff IH BIDR [facility] PRN Reason: Protocol Stop: 12/08/17 22:01 Last Admin: 06/09/17 11:00 Dose: 2 puff Ferrous Sulfate (Ferrous Sulfate) 325 mg PO DAILY [facility] Stop: 12/09/17 09:01 Last Admin: 06/09/17 08:51 Dose: Not Given Gabapentin (Neurontin) 600 mg PO BID [facility] Stop: 12/09/17 09:01 Last Admin: 06/09/17 08:51 Dose: 600 mg Heparin Sodium (Porcine) (Heparin) 4,000 unit IVP Q6HR PRN PRN Reason: SEE COMMENTS Stop: 12/08/17 21:16 Heparin Sodium (Porcine) (Heparin) 2,000 unit IVP Q6H PRN PRN Reason: SEE COMMENTS Stop: 12/08/17 21:16 Hydralazine HCl (Hydralazine) 20 mg IVP Q6H PRN PRN Reason: Hypertension Stop: 12/08/17 23:39 Heparin Sodium/Dextrose (Heparin 25,000 Unit/500 Ml D5w) 25,000 unit in 500 mls @ 17.418 mls/hr IVC .Q24H [facility]; 12 UNIT/KG/HR PRN Reason: Protocol Stop: 12/08/17 21:16 Last Titration: 06/09/17 13:44 Dose: 9.23 unit/kg/hr, 13.4 mls/hr Levalbuterol HCl (Xopenex) 1.25 mg IH [id number] [facility] Stop: 12/08/17 22:01 Last Admin: 06/09/17 11:00 Dose: 1.25 mg Lisinopril (Zestril) 20 mg PO DAILY [facility] PRN Reason: Protocol Stop: 12/09/17 11:01 Last Admin: 06/09/17 11:18 Dose: 20 mg Metoprolol Succinate (Toprol Xl) 50 mg PO DAILY [facility] Stop: 12/09/17 09:01 Last Admin: 06/09/17 08:50 Dose: 50 mg Montelukast Sodium (Singulair) 10 mg PO DAILY PRN PRN Reason: seasonal allergies Stop: 12/08/17 21:02 Naloxone HCl (Narcan) 0.4 mg IVP Q2MIN PRN PRN Reason: SEE COMMENTS Stop: 12/08/17 20:59 Omeprazole (Prilosec) 20 mg PO DAILY [facility] PRN Reason: Protocol Stop: 12/09/17 09:01 Last Admin: 06/09/17 08:50 Dose: 20 mg Prednisone (Prednisone) 10 mg PO DAILY [facility] Stop: 12/09/17 09:01 Last Admin: 06/09/17 08:51 Dose: 10 mg Tramadol HCl (Ultram) 50 mg PO Q8H PRN PRN Reason: Pain Stop: 12/08/17 21:02 Laboratory Tests 06/08/17 06/08/17 06/08/17 17:29 17:29 17:30 WBC 16.7 H Hgb Potassium Creatinine Magnesium 2.0 Troponin I 0.23 H* B-Natriuretic Peptide TSH 0.224 L 06/08/17 06/08/17 06/09/17 21:30 21:30 03:48 WBC Hgb Potassium Creatinine Magnesium Troponin I 0.24 H* 0.23 H* B-Natriuretic Peptide 430 H TSH 06/09/17 06/09/17 06/09/17 03:48 03:48 09:37 WBC 14.0 H Hgb 11.9 Potassium 3.7 Creatinine 0.81 Magnesium Troponin I 0.24 H* B-Natriuretic Peptide TSH - Imaging and Cardiology Chest Xray: report reviewed Echo: report reviewed - EKG Interpretation EKG results cardiology: personally reviewed (ECG with SR, HR 75. non-specific ST and T wave changes.), other (Telemetry reviewed with average HR previous 12 hours noted to be 68, SR. PVCs, one short run of PAF.) Consult Discharge Plan - Plan Referrals: Dennys Mckeon DO [Primary Care Provider] -
[2017-06-09] MEDS ORDERED: *HR* Rivaroxaban 10 MG TABLET PO SCH (17:00)
--- NOTE | 2017-06-10 02:51 | Event Note ---
Date of Encounter: 06/10/17 Time of Encounter: 02:50 Patient went into afib with RVR with rates 110-170s. EKG confirmed that and showed marked ST depression multiple leads (II, AvF, V3, V4, V5, V6) which is likely secondary to the afib with RVR. Gave 10 mg IV cardizem and started cardizem drip. Patient denies chest pain but feels the palpitations.
[2017-06-10] MEDS: Levalbuterol Neb 1.25 MG/3 ML IH SCH ×4 (04:07→21:51)
[2017-06-10] MEDS ORDERED: *HR* Metoprolol 5 MG/5 ML VIAL IVP PRN (09:26)
[2017-06-10] MEDS: predniSONE 10 MG TABLET PO SCH (09:28)
[2017-06-10] MEDS: Aspirin 81 MG TAB.CHEW PO SCH (09:28)
[2017-06-10] MEDS: Lisinopril 20 MG TABLET PO SCH (09:28)
[2017-06-10] MEDS: amLODIPine 5 MG TABLET PO SCH (09:28)
[2017-06-10] MEDS: Gabapentin 300 MG CAPSULE PO SCH ×2 (09:28→20:12)
[2017-06-10] MEDS: Heparin 25,000 UNIT/500 ML D5W 25,000 UNIT/500 ML BAG IVC SCH (09:29)
[2017-06-10] MEDS: Metoprolol XL (24 HR) Succ 50 MG TAB.ER.24H PO SCH (09:29)
--- NOTE | 2017-06-10 09:29 | Internal Med Progress Note ---
Date of Encounter: 06/10/17 Time of Encounter: 09:27 - Assessment and plan (1) Cardiac arrhythmia Current Visit: Yes Status: Acute Assessment and plan: A fib with RVR Cardizem drip lopressor IV as needed Patient already had history of A. fib but recent nonsustained V. tach findings on Holter monitor. Telemetry. Model Technician consulted Qualifiers: Arrhythmia type: atrial fibrillation Atrial fibrillation type: chronic Qualified Code(s): I48.2 - Chronic atrial fibrillation (2) Chest pain Current Visit: Yes Status: Acute Assessment and plan: Elevated troponins possibly from demand ischemia, non-STEMI is being considered Continue heparin drip for now. Hold xarelto Cardiology consulted Continue metoprolol, atorvastatin and nitroglycerin when necessary History of CAD. No active chest pain but had intermittently for last to 2 weeks. . Troponins peaked at 0.24 and remained adynamic. Possible [facility] on Sunday Qualifiers: Chest pain type: chest pain due to myocardial ischemia Ischemic chest pain type: unspecified angina pectoris type Qualified Code(s): I25.9 - Chronic ischemic heart disease, unspecified (3) COPD (chronic obstructive pulmonary disease) Current Visit: Yes Status: Chronic Assessment and plan: Stable. Patient does not appear in COPD exacerbation therefore will continue home medication including prednisone 10 mg daily. No IV steroid is planned at this time. Continue pulse ox. Qualifiers: COPD type: unspecified COPD Qualified Code(s): J44.9 - Chronic obstructive pulmonary disease, unspecified (4) Abnormal TSH Current Visit: Yes Status: Acute Assessment and plan: History of thyroid problem. Low TSHs therefore with normal free T4 , unlikely hyperthyroidism, no clinical symptoms of thyrotoxicosis (5) Hypertension Current Visit: Yes Status: Acute Assessment and plan: Accelerated hypertension Continue beta katina. Hydralazine when necessary. Started on lisinopril and amlodipine Qualifiers: Hypertension type: essential hypertension Qualified Code(s): I10 - Essential (primary) hypertension - Time Spent With Patient Total time spent is greater than 50% in coordination of care (as documented) at patient's floor/unit and/or counseling patient: - Subjective Interval history: Tachycardic. Denies any palpitations, chest pain, slightly shortness of breath, no abdominal pain or dysuria, no diarrhea or fevers - Constitutional Vitals: Temp Pulse Resp BP Pulse Ox 98.0 F 82 15 133/71 95 06/10/17 07:33 06/10/17 07:33 06/10/17 07:33 06/10/17 07:33 06/10/17 07:33 General appearance: Present: A&O X 3 Exam: - Head Head exam: Present: atraumatic, normocephalic - Eye Eye exam: Present: PERRL, conjuntiva pink, sclera anicteric Pupils: Present: PERRL - Neck Neck exam general surgery: Present: supple, trachea midline. Absent: lymphadenopathy - Respiratory Respiratory exam: Present: CTAB. Absent: accessory muscle use, rales, rhonchi, wheezes - Cardiovascular Cardiovascular exam: Present: RRR, +S1, +S2. Tachycardic. Absent: diastolic murmur, gallop, rubs, systolic murmur - GI/Abdominal GI/Abdominal exam: Present: normal bowel sounds, soft, no peritoneal signs. Absent: distended, tenderness - Extremities Exam Extremities exam: Present: warm, radial pulses palpable and symmetrical. Absent : calf tenderness, cyanotic, pedal edema - Neurological Exam Neurological exam: Present: CN II-XII intact, oriented X3, no focal deficits. Absent: pronater drift, facial droop, speech deficit - Skin Skin exam: Present: dry, intact Internal Medicine: Result - Labs CBC & Chem 7: 06/09/17 03:48 06/09/17 03:48 - ABG Interpretation ABG results: PT/INR, D-dimer PT 17.6 Seconds (9.4-12.1) H 06/08/17 21:30 Consult Discharge Plan - Plan Referrals: eDnnys Mckeon DO [Primary Care Provider] -
[2017-06-10] MEDS: Budesonide/Formoterol 160/4.5 MDI IH SCH ×2 (10:31→21:58)
--- NOTE | 2017-06-10 12:24 | Cardiology Progress Note ---
Date of Encounter: 06/10/17 Time of Encounter: 11:00 Assessment and Plan (1) Atrial fibrillation Current Visit: Yes Status: Chronic Recurrent atrial fibrillation overnight. Rate controlled with cardizem gtt. Anticoagulated with heparin gtt. Xarelto on hold for [facility] tomorrow. Possible EP c/s for management of a fib following cardiac catheterization. Qualifiers: Atrial fibrillation type: paroxysmal Qualified Code(s): I48.0 - Paroxysmal atrial fibrillation (2) CAD (coronary artery disease) Current Visit: No Status: Chronic Recurrent angina in setting of a fib with RVR. Plan for [facility] tomorrow. Qualifiers: Coronary Disease-Associated Artery/Lesion type: bypass graft [place] vs. transplanted heart: [place] heart Associated angina: with unspecified angina Qualified Code(s): I25.709 - Atherosclerosis of coronary artery bypass graft(s) , unspecified, with unspecified angina pectoris (3) Chest pain Current Visit: Yes Status: Acute Per cardiology: -Patient reported chest pain as outpatient. -States was crushing chest pain that radiated to bilateral arms. -Troponins elevated. -Denies current chest pain. -On asa, statin, beta block, heparin drip. -TTE 05/30/17 with LVEF 60-65%, mild diastolic dysfunction, mild AR, no segmental wall motion abnormalities. -Plan for possible [facility] on Sunday. -will continue to monitor. Qualifiers: Chest pain type: chest pain due to myocardial ischemia Ischemic chest pain type: unspecified angina pectoris type Qualified Code(s): I25.9 - Chronic ischemic heart disease, unspecified (4) Ventricular tachycardia Current Visit: Yes Status: Acute Per cardiology: -Had episodes of ventricular tachycardia on holter monitor. -On beta katina. -Plan for possible ischemic eval on Sunday if no change in clinical condition. Discussion w patient/family: The assessment and plan as outlined above was discussed with the patient and/or family members who expressed understanding and agreement. All questions were answered. Thank you for involving us in the care of your patient. Please call with any questions. Subjective Interval history: Pt resting comfortably. Went into a fib with RVR overnight- had CP/arm pain, SOB associated with it. HR controlled currently with cardizem gtt, pt asymptomatic. Objective Vital Signs, Last 4 Hours Temp Pulse Resp BP Pulse Ox 06/10/17 11:18 98.7 F 98 15 123/69 94 06/10/17 10:31 15 99 General: Conversant, No Apparent Distress HEENT: Atraumatic, Normocephaly, Mucus Membranes Moist Neck: No JVD, Normal carotid pulses Cardiac: Normal S1 and S2, No Murmur, Other (irregularly irregular rhythm) Lungs: Normal Breath Sounds, No Wheeze, Rales, Rhonchi Neuro: Alert and responsive, No focal deficits noted Abdomen: Soft, Non-Tender Skin: No rashes noted on visualized skin Musculoskeletal: No Chest Wall Tenderness Extremities: No Clubbing, No Cyanosis, No Edema, Normal Pulses Results 06/09/17 03:48 06/09/17 03:48 Lab Results 06/09/17 06/09/17 06/10/17 12:52 19:52 01:41 APTT 62.2 H D 66.3 H 65.7 H Consult Discharge Plan - Plan Referrals: Dennys Mckeon DO [Primary Care Provider] -
[2017-06-11 02:45] LABS: Prothrombin Time 11.2 Seconds (9.4-12.1)
[2017-06-11 02:48] LABS: Activated Partial Thrombo Time 87.8 Seconds (26.0-36.0)
[2017-06-11] MEDS: Levalbuterol Neb 1.25 MG/3 ML IH SCH ×2 (03:30→10:45)
[2017-06-11 08:24] LABS: Hematocrit 40.1 % (35.3-44.9); Mean Corpuscular HGB Conc 32.4 g/dL (31.6-35.5); Mean Corpuscular Hemoglobin 30.2 pg (28.0-33.3); Mean Corpuscular Volume 93.3 fL (83.0-100.0); Mean Platelet Volume 10.6 fL (9.4-12.4); Platelet Count 262 K/mcL (140-400); Red Cell Distribution Width 14.7 % (11.5-14.5)
[2017-06-11 08:46] LABS: BUN/Creatinine Ratio 15 (6-26); Blood Urea Nitrogen 12 mg/dL (8-23); Calcium 8.9 mg/dL (8.6-10.3); Carbon Dioxide 28 mEq/L (23-29); Chloride 105 mEq/L (98-107); Glucose 87 mg/dL (70-105); Osmolality,Calculated 283 (280-300); Potassium 4.5 mEq/L (3.5-5.1); Sodium 137 mEq/L (136-145); eGFR For African Americans > 60 (> 60); eGFR For Non-African Americans > 60 (> 60)
--- NOTE | 2017-06-11 08:59 | Internal Med Progress Note ---
<Jonathan Nolasco - Last Filed: 06/11/17 08:54> Date of Encounter: 06/11/17 Time of Encounter: 08:50 - Assessment and plan (1) Chest pain Current Visit: Yes Status: Acute Assessment and plan: Elevated troponins 0.24/0.23/0.24 on admission. Possibly from demand ischemia in the setting of a. fib with RVR. TTE 05/30/17 with LVEF 60-65%, mild diastolic dysfunction, mild AR, no segmental wall motion abnormalities. Pending [facility] today. Continue metoprolol, atorvastatin and nitroglycerin when necessary. Qualifiers: Chest pain type: chest pain due to myocardial ischemia Ischemic chest pain type: unspecified angina pectoris type Qualified Code(s): I25.9 - Chronic ischemic heart disease, unspecified (2) Cardiac arrhythmia Current Visit: Yes Status: Acute Assessment and plan: A fib with RVR. Continues to have episodes of palpitations. Continue Cardizem drip lopressor IV as needed [facility] today. Patient already had history of A. fib but recent nonsustained V. tach findings on Holter monitor. Telemetry. Qualifiers: Arrhythmia type: atrial fibrillation Atrial fibrillation type: chronic Qualified Code(s): I48.2 - Chronic atrial fibrillation (3) COPD (chronic obstructive pulmonary disease) Current Visit: No Status: Chronic Assessment and plan: Stable. Patient does not appear in COPD exacerbation therefore will continue home medication including prednisone 10 mg daily. No IV steroid is planned at this time. Continue pulse ox. Qualifiers: COPD type: unspecified COPD Qualified Code(s): J44.9 - Chronic obstructive pulmonary disease, unspecified (4) Abnormal TSH Current Visit: No Status: Acute Assessment and plan: History of thyroid problem. Low TSHs therefore with normal free T4 , unlikely hyperthyroidism, no clinical symptoms of thyrotoxicosis (5) Hypertension Current Visit: No Status: Acute Assessment and plan: Stable. Continue beta katina, lisinopril and amlodipine. Hydralazine when necessary. Qualifiers: Hypertension type: essential hypertension Qualified Code(s): I10 - Essential (primary) hypertension - Time Spent With Patient Total time spent is greater than 50% in coordination of care (as documented) at patient's floor/unit and/or counseling patient: Greater than 35 minutes - Subjective Interval history: Patient is doing well today. She has not had any PO intake and pending C. Denies CP, SOB. Reports that she did have episode of palpitations since admission. Has no acute complaints. - Constitutional Vitals: Temp Pulse Resp BP Pulse Ox 98.2 F 67 16 138/55 95 06/11/17 07:21 06/11/17 07:21 06/11/17 07:21 06/11/17 07:21 06/11/17 07:21 General appearance: Present: A&O X 3 - Head Head exam: Present: atraumatic, normocephalic - Eye Eye exam: Present: PERRL, conjuntiva pink, sclera anicteric Pupils: Present: PERRL - Neck Neck exam general surgery: Present: supple, trachea midline. Absent: lymphadenopathy - Respiratory Respiratory exam: Present: CTAB. Absent: accessory muscle use, rales, rhonchi, wheezes - Cardiovascular Cardiovascular exam: Present: RRR, +S1, +S2. Absent: diastolic murmur, gallop, rubs, systolic murmur - GI/Abdominal GI/Abdominal exam: Present: normal bowel sounds, soft, no peritoneal signs. Absent: distended, tenderness - Extremities Exam Extremities exam: Present: warm, radial pulses palpable and symmetrical. Absent : calf tenderness, cyanotic, pedal edema - Neurological Exam Neurological exam: Present: CN II-XII intact, oriented X3, no focal deficits. Absent: pronater drift, facial droop, speech deficit - Skin Skin exam: Present: dry, intact Internal Medicine: Result - Labs CBC & Chem 7: 06/11/17 08:10 06/11/17 08:10 Labs: Short CBC 06/11/17 Range/Units 08:10 WBC 12.3 H (4.3-11.1) K/mcL Hgb 13.0 (11.5-15.4) g/dL Hct 40.1 (35.3-44.9) % Plt Count 262 (140-400) K/mcL BMP 06/11/17 08:10 Sodium 137 Potassium 4.5 Chloride 105 Carbon Dioxide 28 BUN 12 Creatinine 0.81 Glucose 87 Calcium 8.9 - ABG Interpretation ABG results: PT/INR, D-dimer PT 11.2 Seconds (9.4-12.1) 06/11/17 02:29 Consult Discharge Plan - Plan Referrals: Dennys Mckeon DO [Primary Care Provider] - <Bruce Santana Treva - Last Filed: 06/11/17 14:34> Date of Encounter: 06/11/17 - Assessment and plan (1) Cardiac arrhythmia Current Visit: Yes Status: Acute Qualifiers: Arrhythmia type: atrial fibrillation Atrial fibrillation type: chronic Qualified Code(s): I48.2 - Chronic atrial fibrillation (2) Chest pain Current Visit: Yes Status: Acute Qualifiers: Chest pain type: chest pain due to myocardial ischemia Ischemic chest pain type: unspecified angina pectoris type Qualified Code(s): I25.9 - Chronic ischemic heart disease, unspecified (3) COPD (chronic obstructive pulmonary disease) Current Visit: No Status: Chronic Qualifiers: COPD type: unspecified COPD Qualified Code(s): J44.9 - Chronic obstructive pulmonary disease, unspecified (4) Abnormal TSH Current Visit: No Status: Acute (5) Hypertension Current Visit: No Status: Acute Qualifiers: Hypertension type: essential hypertension Qualified Code(s): I10 - Essential (primary) hypertension - Time Spent With Patient Total time spent is greater than 50% in coordination of care (as documented) at patient's floor/unit and/or counseling patient: - Constitutional Vitals: Temp Pulse Resp BP Pulse Ox 98 F 63 16 139/54 94 06/11/17 11:38 06/11/17 11:38 06/11/17 11:38 06/11/17 11:38 06/11/17 11:38 Internal Medicine: Result - Labs CBC & Chem 7: 06/11/17 08:10 06/11/17 08:10 Labs: Short CBC 06/11/17 Range/Units 08:10 WBC 12.3 H (4.3-11.1) K/mcL Hgb 13.0 (11.5-15.4) g/dL Hct 40.1 (35.3-44.9) % Plt Count 262 (140-400) K/mcL BMP 06/11/17 08:10 Sodium 137 Potassium 4.5 Chloride 105 Carbon Dioxide 28 BUN 12 Creatinine 0.81 Glucose 87 Calcium 8.9 - ABG Interpretation ABG results: PT/INR, D-dimer PT 11.2 Seconds (9.4-12.1) 06/11/17 02:29 - Attending Attestation A fib with RVR Cardizem drip lopressor IV as needed Elevated troponins possibly from demand ischemia, non-STEMI is being considered Continue heparin drip for now. Hold xarelto Cardiology consulted Continue metoprolol, atorvastatin and nitroglycerin when necessary History of CAD. No active chest pain but had intermittently for last to 2 weeks. . Troponins peaked at 0.24 and remained adynamic. [facility] today I examined this patient and my medical decision-making was reviewed with the Resident Physician. I agree with the documented findings, disposition and treatment plan as described except to the extent set forth below.
[2017-06-11] MEDS: Aspirin 81 MG TAB.CHEW PO SCH (09:29)
[2017-06-11] MEDS: amLODIPine 5 MG TABLET PO SCH (09:29)
[2017-06-11] MEDS: predniSONE 10 MG TABLET PO SCH (09:29)
[2017-06-11] MEDS: Lisinopril 20 MG TABLET PO SCH (09:29)
[2017-06-11] MEDS: Gabapentin 300 MG CAPSULE PO SCH ×2 (09:29→20:51)
[2017-06-11] MEDS: Metoprolol XL (24 HR) Succ 50 MG TAB.ER.24H PO SCH (09:29)
--- NOTE | 2017-06-11 10:09 | Event Note ---
Date of Encounter: 06/11/17 Time of Encounter: 10:07 - Cardiology Event Note PLan for LHC today for ventricular tachycardia, elevated troponin. RIsks versus benefits of LHC explained to patient. Patient states understanding and agreeable to proceed. Further recommendations pending LHC. Possible EP consult, anti-arrythmic therapy. Again further recommendations pending LHC.
--- NOTE | 2017-06-11 10:16 | Electrocardiograph Report ---
[address] [place], [place] [address] Test Date: 2017-06-10 Pat Name: Nery Perez Department: 111 Room: 2NE21 Gender: Equipment Scheduler: : 1950 Requested By: Cathleen Vang Order Number: [id number] Reading MD: Elyse Cowan Measurements Intervals [place] Rate: 151 P: VA: 0 QRS: -55 QRSD: 100 T: 194 QT: 254 QTc: 340 Interpretive Statements ATRIAL FIBRILLATION WITH RAPID VENTRICULAR RESPONSE LEFT ANTERIOR FASCICULAR BLOCK SEPTAL MYOCARDIAL INFARCTION, PROBABLY OLD MARKED ST DEPRESSION, CONSIDER SUBENDOCARDIAL INJURY PROBABLE LVH Electronically Signed On 06-11-2017 10:15:08 EDT by Elyse Cowan
[2017-06-11] MEDS: Budesonide/Formoterol 160/4.5 MDI IH SCH ×2 (10:44→20:11)
[2017-06-11] MEDS ORDERED: 0.9 % Sodium Chloride 1,000 ML ONE ×2 (12:26→12:38)
[2017-06-11] MEDS ORDERED: ISOVUE-370 200 ML INFUS..BTL IV ONE ×2 (12:27→13:21)
[2017-06-11] MEDS ORDERED: Nitroglycerin 1,000 MCG/10 ML VIAL IV ONE (12:27)
[2017-06-11] MEDS ORDERED: *HR* Heparin 10,000 UNIT/10 ML VIAL ONE (12:27)
[2017-06-11] MEDS ORDERED: Heparin 1,000 UNITS/500 mL 500 ML ONE (12:27)
[2017-06-11] MEDS ORDERED: *HR* Midazolam HCl 2 MG/2 ML VIAL ONE (12:37)
[2017-06-11] MEDS ORDERED: *HR* FentaNYL (PF) 100 MCG/2 ML VIAL ONE (12:38)
[2017-06-11] MEDS ORDERED: Tirofiban 12.5 MG/250ML 12.5 MG/250 ML BAG ONE (13:21)
[2017-06-11] MEDS ORDERED: *HR* Atropine Sulfate 1 MG/10 ML SYRINGE ONE (13:24)
[2017-06-11] MEDS ORDERED: Tirofiban 12.5 MG/250ML 12.5 MG/250 ML BAG IVC SCH (14:15)
--- NOTE | 2017-06-11 14:20 | Invasive Diagnostic Lab Proc ---
Name: Nery Perez Date of Study: 06/11/2017 Date: 1950 Ht: 64.2in Medical Record#: [id number] Age: 66 Wt: 134.48lb Gender: Female BSA: 1.66 Order #: [id number] BMI: 22.96 Physicians Procedure Physician: Mervat Carcamo MD Referring MD: Referring MD: Staff Name Position Time In Sites, Sonya RT (R) Monitor 12:40 PM Luis Quintero RT (R) Scrub 12:40 PM George Nguyen RN [employer] Upholsterer 12:40 PM Kellen Hernandez HOME HEALTH SPEECH THERAPIST 12:40 PM Indications Indication Non-Stemi Procedures Performed Procedure PRQ CARD UMM STENT W/ANGIO 1 VSL CORONARY ART/GRFT ANGIO S&I Pre-Procedure Checklist Informed consent is complete signed and on chart. H&P is on chart. ID band is on and ID verified with patient. Patient NPO for procedure The procedure was described for the patient and questions were answered. Blood Pressure: 154/63 ECG is on chart. Rhythm: NSR Plan of Care Patient will tolerate the procedure without complications. Adequate level of comfort will be maintained. Hemodynamics will remain stable Patient will recover from procedure without complications. Respiratory function will be maintained. Cardiac rhythm will remain stable. Patient temperature will be maintained. Patient and/or family have verbalized understanding of the procedure. Patient Education Chief Complaint/Reason for Test: Cardiac Cath Developmental Category: Geriatric (65+ years) Developmentally Appropriate for Age: Yes Learning Barriers: None Education Needs: Procedure Education Method: Verbal Information Taught: Cardiac Cath Educational Evaluation: Able to repeat information Intravenous Access Time IV Size Location DC'd Fluid/Drip Rate Units RN 12:51 PM 20g 1 02/15" Patent On Arrival Rt Antecubital 0.9NaCl 25 ml/hr George Nguyen RN Allergies codeine Vital Signs Time BP (mmHg) HR (bpm) O2 Sat. RR (bpm) LOC 12:49 PM 154 / 63 65 98 % 12:54 PM 155 / 62 68 97 % 12:59 PM 136 / 53 66 97 % 01:04 PM 136 / 53 67 97 % 01:09 PM 147 / 52 68 97 % 01:14 PM 128 / 57 68 97 % 01:19 PM 132 / 56 69 98 % 01:24 PM 133 / 53 70 98 % 01:29 PM 124 / 55 66 98 % 01:34 PM 129 / 46 66 98 % 01:39 PM 133 / 56 68 98 % 01:44 PM 131 / 49 68 99 % 01:49 PM 132 / 80 73 100 % Procedural Medications Time Medication Dose Units Method Given By 12:41 PM Oxygen 2 L/min nasal cannula George Nguyen RN 12:46 PM Versed 1 mg Intravenous George Nguyen RN 12:46 PM Fentanyl 50 mcg Intravenous George Nguyen RN 12:54 PM Lidocaine 2% 10 ml Subcutaneous Mervat Carcamo MD 12:54 PM Versed 0.5 mg Intravenous George Nguyen RN 12:54 PM Fentanyl 25 mcg Intravenous George Nguyen RN 01:09 PM Nitroglycerin 100 mcg Intraarterial Janeth Carcamo MD 01:15 PM Heparin 1000 units Intravenous George Nguyen RN 01:20 PM Heparin 2000 units Intravenous George Nguyen RN 01:23 PM Aggrastat Bolus: 29 ml Intravenous George Nguyen RN 01:23 PM Aggrastat 5mg/100ml 10.5 ml Intravenous George Nguyen RN 01:51 PM Plavix 600 mg Orally George Nguyen RN ASA Classification: CLASS II- Mild systemic disease (i.e. well-controlled diabetes, hypertension, asthma, cigarette smoking) Cynthia Score Preprocedure Postprocedure Activity 2- Moves 4 extremities sustained head lift Activity 2- Moves 4 extremities sustained head lift Circulation 2- SBP +/= 20 points of pre-anesthetic level Circulation 2- SBP +/= 20 points of pre-anesthetic level Consciousness 2- Awake and alert oriented x 3 Consciousness 2- Awake and alert oriented x 3 O2 Saturation 2- Able to maintain O2 satruation of 92% on room air O2 Saturation 2- Able to maintain O2 satruation of 92% on room air Respiratory 2- Able to deep breathe and cough well Respiratory 2- Able to deep breathe and cough well Total Score 10 Total Score 10 Contrast Agent: Isovue Diagnostic Contrast: 231 ml Total Contrast: 231 ml Fluoro Dose: 923 mGy Procedure Log Time Note Enter By 12:20 PM CathStat 12:40 PM Pt arrived to sleep lab technician 2 at 12:40 tsites 12:40 PM Sonya Escobar (R) Position: Monitor Time in: 12:40 tsites 12:40 PM Leon, Luis RT (R) Position: Scrub Time in: 12:40 tsites 12:40 PM George Nguyen RN Position: [employer] Upholsterer Time in: 12:40 tsites 12:40 PM Kellen Hernandez HOME HEALTH SPEECH THERAPIST Position: Time in: 12:40 tsites 12:40 PM Patient charges- Angio tray pack, Navilyst 3mm J, Pulse Oximetry and ACIST tubing and transducer tsites 12:41 PM Case Delayed No tsites 12:41 PM Physician arrived 12:41 tsites 12:41 PM Meet and greet completed tsites 12:41 PM Sign in performed according to hospital policy. tsites 12:41 PM Procedure start 12:41 tsites 12:41 PM Time: 12:41 Oxygen on at 2 L/min per nasal cannula by George Nguyen RN tsites 12:41 PM Clinical Presentation: Unstable angina tsites 12:46 PM Time: 12:46 Versed 1 mg Intravenous Given by George Nguyen RN tsites 12:46 PM Time: 12:46 Fentanyl 50 mcg Intravenous Given by George Nguyen RN tsites 12:48 PM Vitals capture started with the following parameters, Patient=Adult, Interval=5 min, Initial Ulqupqkh=198 mmHg, Deflation Rate=5 mmHg, Cuff placed on Right Arm 12:49 PM HR=65 bpm, KVUT=910/63 mmhg, SpO2=98.0 % 12:51 PM Pressure channel 1 zero failed. 12:51 PM Pressure channel 1 zeroed. 12:52 PM Recorded ECG: HR=76 Condition=Condition 1 12:54 PM Time out performed according to hospital policy tsites 12:54 PM Time: 12:54 10 ml Lidocaine 2% to right groin Subcutaneous Given by Mervat Carcamo MD tsites 12:54 PM Time: 12:54 Versed 0.5 mg Intravenous Given by George Nguyen RN tsites 12:54 PM Time: 12:54 Fentanyl 25 mcg Intravenous Given by George Nguyen RN tsites 12:54 PM HR=68 bpm, NWBJ=096/62 mmhg, SpO2=97.0 % 12:56 PM Unsuccessful access attempt # 1 into the right Femoral artery. Manual pressure applied to achieve hemostasis.. tsites 12:57 PM Unsuccessful access attempt # 2 into the right Femoral artery. Manual pressure applied to achieve hemostasis.. tsites 12:58 PM Access obtained by percutaneous puncture. 6Fr 10cm Terumo [place] sheath placed in right Femoral artery. [id number] tsites 12:59 PM 4cc of contrast hand injected into rt fem artery tsites 12:59 PM HR=66 bpm, FSWJ=586/53 mmhg, SpO2=97.0 % 12:59 PM 5Fr FL 4 catheter inserted over the wire DN tsites 12:59 PM 0.035 145cm Navilyst 3mmJ wire [id number] tsites 01:01 PM wire reinserted catheter removed tsites 01:01 PM 5Fr FL3.5 catheter inserted over the wire [id number] tsites 01:02 PM LCA angiography performed in multiple views. tsites 01:02 PM Recorded Pressure: Ao, HR=68, Condition=Condition 1 (Aorta) Ao 138/60/91 01:04 PM HR=67 bpm, YUNN=310/53 mmhg, SpO2=97.0 % 01:04 PM wire reinserted catheter removed tsites 01:04 PM 5Fr FR 4 catheter inserted over the wire [facility] tsites 01:05 PM RCA angiography performed in multiple views. tsites 01:05 PM Recorded Pressure: Ao, HR=70, Condition=Condition 1 (Aorta) Ao 136/59/92 01:09 PM HR=68 bpm, UUTX=704/52 mmhg, SpO2=97.0 % 01:10 PM Time: 13:09 Nitroglycerin 100 mcg Intraarterial Given by Janeth Carcamo MD tsites 01:12 PM SVG to the om angio performed in multiple views. tsites 01:14 PM HR=68 bpm, JBQG=477/57 mmhg, SpO2=97 % 01:14 PM wire reinserted catheter removed tsites 01:14 PM 5Fr IM catheter inserted over the wire [id number] tsites 01:15 PM Time: 13:15 Heparin 1000 units Intravenous Given by George Nguyen RN tsites 01:18 PM wire reinserted catheter removed tsites 01:19 PM HR=69 bpm, PRCC=854/56 mmhg, SpO2=98.0 % 01:20 PM Time: 13:20 Heparin 2000 units Intravenous Given by George Nguyen RN tsites 01:21 PM PCI Status Urgent tsites 01:21 PM PCI Indication: PCI for high risk Non-STEMI or unstable angina tsites 01:21 PM PCI lesion in Proximal RCA. tsites 01:22 PM 6Fr JR 4 [place] Bright-Tip guide catheter was used to cannulate the PCI vessel successfully. reused? No tsites 01:22 PM Inflation device was opened. tsites 01:22 PM Coronary Dominance: right tsites 01:22 PM Lesion found in Proximal RCA. Pre Stenosis: 90 Pre WESLY Flow: 3: Complete and Brisk Flow/Perfusion tsites 01:22 PM Right Coronary, Right Posterior Descending Arteries with Right Posterolateral and Acute Marginal branches with 90 % stenosis. If graft is supplying this area, 0 % stenosis tsites 01:23 PM Time: 13:23 Aggrastat Bolus: 29 ml Intravenous Given by George Nguyen RN Aggarwal pump tsites 01:24 PM HR=70 bpm, WYMS=726/53 mmhg, SpO2=98.0 % 01:24 PM Time: 13:23 Aggrastat 5mg/100ml 10.5 ml Intravenous Given by George Nguyen RN Aggarwal pump tsites 01:25 PM 2.0 mm x 20 mm Emerge Monorail balloon across target lesion- successful. reused? No tsites 01:26 PM Balloon inflated @ 10 govind for 8 seconds tsites 01:27 PM Balloon catheter removed intact. tsites 01:29 PM HR=66 bpm, RIOE=048/55 mmhg, SpO2=98.0 % 01:29 PM 2.5 mm x 12 mm Emerge Monorail balloon across target lesion- successful. reused? No tsites 01:29 PM Balloon inflated @ 6 govind for 7 seconds tsites 01:30 PM Balloon inflated @ 10 govind for 10 seconds tsites 01:31 PM Balloon catheter removed intact. tsites 01:32 PM 4.0mm x 20mm Synergy drug-eluting stent across target lesion- successful Lot #[id number] tsites 01:34 PM HR=66 bpm, EJOR=498/46 mmhg, SpO2=98.0 % 01:38 PM Stent deployed @ 11 govind for 10 seconds tsites 01:38 PM Stent balloon reinflated @ 14 govind for 9 seconds tsites 01:39 PM HR=68 bpm, LOJK=753/56 mmhg, SpO2=98.0 % 01:39 PM Stent balloon reinflated @ 16 govind for 11 seconds tsites 01:40 PM Stent balloon reinflated @ 16 govind for 13 seconds tsites 01:42 PM Stent balloon reinflated @ 14 govind for 9 seconds tsites 01:42 PM Stent delivery system removed intact. tsites 01:44 PM HR=68 bpm, MKHF=026/49 mmhg, SpO2=99 % 01:44 PM Guide catheter removed intact. tsites 01:46 PM Procedure completed at 13:46 tsites 01:46 PM Did you address WESLY flow and Dominance? Yes tsites 01:47 PM Sign out completed: Radiation Dose 923 mGy Fluoro Time: 22.4 Isovue 370 - 200ml contrast 231 ml given by Mervat Carcamo MD. Complications: NoneCardiac Rehab Consult needed: YesConfirmed administered medications: Yes tsites 01:48 PM Isovue 370 - 200ml,2 Bottle(s) used. tsites 01:48 PM Arterial sheath pulled, Angio-seal closure device used and was Successful S/N. tsites 01:48 PM Estimated Blood Loss: minimal tsites 01:49 PM HR=73 bpm, IVLB=099/80 mmhg, OvG6=707.0 % 01:51 PM Time: 13:51 Plavix 600 mg Orally Given by George Nguyen RN tsites 01:53 PM Post ECG NSR tsites 01:53 PM Post Blood Pressure 132/80 tsites 01:53 PM 13:53 Post Pulses Bilateral DP & PT 1+ tsites 01:57 PM Information taught Cardiac Cath, PCI, and Angioseal tsites 01:57 PM Education needs Procedure, Plan of Care, and Responsibilities of Patient in Care tsites 01:57 PM Learning barriers :None tsites 01:57 PM Education Methods Verbal tsites 01:57 PM Education evaluation Able to repeat information tsites 01:57 PM Site status No bleeding/hematoma - Rt Groin as reported by Luis Quintero RT (R) at 13:57 tsites 01:57 PM Opsite applied tsites 01:57 PM Plavix, Effient or Brilinta given Yes tsites 01:57 PM Delay to floor No tsites 01:58 PM Report given to xenia CRUZ Pt taken to 2NE Room #21. 13:58 tsites 01:58 PM Patient out of room: 13:58 tsites 01:58 PM Family placed in consult room. tsites 02:02 PM Circumflex, Obtuse Marginal, Left Posterior Descending, and Left Posterolateral Coronary Arteries with 0 % stenosis. If graft is supplying this area, 70 % stenosis tsites 02:02 PM Left Main Coronary Artery with 25% stenosis tsites 02:04 PM Lesion found in LMCA. Pre Stenosis: 25 Pre WESLY Flow: tsites Complications Complication None Hemodynamics Pressures Site Systolic/A Wave Diastolic/V Wave Mean AO 138 60 91 AO 136 59 92 Post Procedure Information Blood Pressure: 132/80 mmHg Rhythm: NSR Post procedural instructions were given Closure Device Time Device Success/Fail 06/11/2017 1:58:00 PM Angio-Seal VIP Successful Site Checks Time Location Status Staff Sheath In? Note 01:57 PM Rt Groin No bleeding/hematoma Luis Quintero RT (R) Pulses Time Site Pre-Procedure Post-Procedure Note 06/11/2017 12:51:00 PM Bilateral DP & PT 2+ 06/11/2017 12:51:00 PM Bilateral radial 2+ 1:53:00 PM Bilateral DP & PT 1+ Updated by Sonya Luz RT (R) on 06/11/2017 2:11:12 PM Sonya Luz, RT electronically signed on 06/11/2017 2:12:01 PM with status of Final
[2017-06-11] MEDS ORDERED: Levalbuterol Neb 1.25 MG/3 ML IH PRN (15:17)
[2017-06-11] MEDS ORDERED: NON-FORMULARY MEDICATION 1 EACH EACH (Risedronate Sodium [Actonel] 35 MG) PO SCH (21:01)
[2017-06-12 03:25] LABS: Basophils # 0.1 K/mcL (0.0-0.2); Basophils % 0.3 %; Eosinophils # 0.2 K/mcL (0.0-0.6); Eosinophils % 1.1 %; Hematocrit 35.6 % (35.3-44.9); Hemoglobin 11.6 g/dL (11.5-15.4); Immature Granulocytes % 0.8 % (0-4); Lymphocytes # 2.2 K/mcL (0.6-4.6); Lymphocytes % 15.1 %; Mean Corpuscular HGB Conc 32.6 g/dL (31.6-35.5); Mean Platelet Volume 10.4 fL (9.4-12.4); Monocytes % 6.9 %; Neutrophils # 11.3 K/mcL (1.6-8.9); Platelet Count 265 K/mcL (140-400); Red Blood Count 3.87 M/mcL (3.82-4.97); Red Cell Distribution Width 14.5 % (11.5-14.5); Segmented Neutrophils % 75.8 %
[2017-06-12 03:43] LABS: BUN/Creatinine Ratio 19 (6-26); Blood Urea Nitrogen 19 mg/dL (8-23); Carbon Dioxide 27 mEq/L (23-29); Chloride 103 mEq/L (98-107); Glucose 88 mg/dL (70-105); Osmolality,Calculated 282 (280-300); Potassium 4.1 mEq/L (3.5-5.1); Sodium 135 mEq/L (136-145); eGFR For African Americans > 60 (> 60); eGFR For Non-African Americans 56 (> 60)
[2017-06-12] MEDS: Budesonide/Formoterol 160/4.5 MDI IH SCH ×2 (08:00→20:29)
--- NOTE | 2017-06-12 08:23 | Discharge Summary ---
Date of Encounter: 06/12/17 - Discharge Diagnosis (1) Chest pain Status: Acute Qualifiers: Chest pain type: chest pain due to myocardial ischemia Ischemic chest pain type: unspecified angina pectoris type Qualified Code(s): I25.9 - Chronic ischemic heart disease, unspecified (2) Cardiac arrhythmia Status: Acute Qualifiers: Arrhythmia type: atrial fibrillation Atrial fibrillation type: chronic Qualified Code(s): I48.2 - Chronic atrial fibrillation (3) COPD (chronic obstructive pulmonary disease) Status: Chronic Qualifiers: COPD type: unspecified COPD Qualified Code(s): J44.9 - Chronic obstructive pulmonary disease, unspecified (4) Abnormal TSH Status: Acute (5) Hypertension Status: Acute Qualifiers: Hypertension type: essential hypertension Qualified Code(s): I10 - Essential (primary) hypertension Hospital course: Ms. Perez is a 66 year old female - Time Spent with Patient Total time spent providing and/or coordinating discharge services: - Discharge Medications Home Medications: Albuterol Sulfate [Albuterol Inhaler] 2 puff IH Q6HR 11/15/14 [History] Atorvastatin [Lipitor] 40 mg PO QPM 11/15/14 [History] Gabapentin [Neurontin] 600 mg PO BID 11/15/14 [History] Montelukast [Singulair] 10 mg PO DAILY PRN 11/15/14 [History] Omeprazole [PriLOSEC] 20 mg PO DAILY 11/15/14 [History] Aspirin 81 mg PO DAILY 30 Days tab.chew 11/17/14 [Rx] Rivaroxaban [Xarelto] 20 mg PO 1700 30 Days tablet 11/17/14 [Rx] Budesonide/Formoterol 160/4.5 [Symbicort 160/4.5] 2 puff IH BIDR 06/08/17 [ History] Ferrous Sulfate [Ferrous Sulfate] 325 mg PO DAILY 06/08/17 [History] Metoprolol XL (24 HR) Succ [Toprol XL] 50 mg PO DAILY 06/08/17 [History] Risedronate Sodium [Actonel] 35 mg PO MO 06/08/17 [History] Tramadol HCl [Ultram] 50 mg PO Q8H PRN 06/08/17 [History] predniSONE [PredniSONE] 10 mg PO DAILY 06/08/17 [History] Allergies/Adverse Reactions: 3 Allergy/AdvReac Type Severity Reaction Status Date / Time codeine AdvReac See Verified 11/15/14 14:30 Comments Date of admission: 06/09/17 10:59 Primary care physician: Dennys Mckeon, Consults: 06/11/17 14:03 Consult to Cardiac Rehabilitation-Phase1 [CONS] Routine Comment: Reason for Consult: AMI Call Completed: Yes Consult to Nurse Navigator [CONS] Routine Comment: - Constitutional Vitals: Temp Pulse Resp BP Pulse Ox 98.5 F 66 16 155/74 93 06/12/17 07:42 06/12/17 07:42 06/12/17 08:00 06/12/17 07:42 06/12/17 08:00 General appearance: Present: A&O X 3 - Patient Status Condition: Good - Discharge Instructions Follow Up With: Dennys Mckeon DO [Primary Care Provider] - - VTE Documentation of Mechanical Device: Intermittent pneumatic compression device
[2017-06-12] MEDS ORDERED: Metoprolol XL (24 HR) Succ 50 MG TAB.ER.24H PO SCH (09:00)
[2017-06-12] MEDS: Gabapentin 300 MG CAPSULE PO SCH ×2 (09:11→20:38)
[2017-06-12] MEDS: predniSONE 10 MG TABLET PO SCH (09:11)
[2017-06-12] MEDS: Aspirin 81 MG TAB.CHEW PO SCH (09:12)
[2017-06-12] MEDS: Lisinopril 20 MG TABLET PO SCH (09:12)
[2017-06-12] MEDS: amLODIPine 5 MG TABLET PO SCH (09:12)
--- NOTE | 2017-06-12 10:25 | Internal Med Progress Note ---
<Jonathan Nolasco - Last Filed: 06/12/17 15:53> Date of Encounter: 06/12/17 Time of Encounter: 10:15 - Assessment and plan (1) Atrial fibrillation with rapid ventricular response Current Visit: Yes Status: Acute Assessment and plan: s/p [facility] with PCI at proximal RCA Patient continues to have recurrent A fib with RVR. Last episode this AM. Has complaints of palpitations Restarted Cardizem drip Start Toprol, Xarelto, Sotalol per cardiology. Patient already had history of A. fib but recent nonsustained V. tach findings on Holter monitor. Continue with Telemetry. (2) Chest pain Current Visit: Yes Status: Acute Assessment and plan: Resolved. Elevated troponins 0.24/0.23/0.24 on admission. Likely demand ischemia in the setting of a. fib with RVR. TTE 05/30/17 with LVEF 60-65%, mild diastolic dysfunction, mild AR, no segmental wall motion abnormalities. s/p [facility] with proximal RCA stent. Continue metoprolol, atorvastatin. Qualifiers: Chest pain type: chest pain due to myocardial ischemia Ischemic chest pain type: unspecified angina pectoris type Qualified Code(s): I25.9 - Chronic ischemic heart disease, unspecified (3) COPD (chronic obstructive pulmonary disease) Current Visit: No Status: Chronic Assessment and plan: Stable. Patient does not appear in COPD exacerbation therefore will continue home medication including prednisone 10 mg daily. No IV steroid is planned at this time. Continue pulse ox. Qualifiers: COPD type: unspecified COPD Qualified Code(s): J44.9 - Chronic obstructive pulmonary disease, unspecified (4) Abnormal TSH Current Visit: No Status: Acute Assessment and plan: History of thyroid problem. Low TSHs therefore with normal free T4 , unlikely hyperthyroidism, no clinical symptoms of thyrotoxicosis (5) Hypertension Current Visit: No Status: Acute Assessment and plan: Stable. Continue beta katina, lisinopril and amlodipine. Hydralazine when necessary. Qualifiers: Hypertension type: essential hypertension Qualified Code(s): I10 - Essential (primary) hypertension (6) DVT prophylaxis Current Visit: Yes Status: Acute Assessment and plan: Patient on Xarelto. - Time Spent With Patient Total time spent is greater than 50% in coordination of care (as documented) at patient's floor/unit and/or counseling patient: Greater than 35 minutes - Subjective Interval history: Patient had episode of A fib RVR. Cardizem drip was restarted. She feels more fatigued today. Teary eyed. Denies CP, SOB. Reports that she did have episode of palpitations since admission. Has no acute complaints. - Constitutional Vitals: Temp Pulse Resp BP Pulse Ox 98.5 F 150 16 158/110 93 06/12/17 07:42 06/12/17 09:49 06/12/17 08:00 06/12/17 09:49 06/12/17 08:00 General appearance: Present: A&O X 3 - Head Head exam: Present: atraumatic, normocephalic - Eye Eye exam: Present: EOMI, conjuntiva pink, sclera anicteric - Neck Neck exam general surgery: Present: supple, trachea midline. Absent: lymphadenopathy - Respiratory Respiratory exam: Present: CTAB. Absent: accessory muscle use, rales, rhonchi, wheezes - Cardiovascular Cardiovascular exam: Present: irregular rhythm, +S1, +S2, tachycardia. Absent: diastolic murmur, gallop, rubs, systolic murmur - GI/Abdominal GI/Abdominal exam: Present: normal bowel sounds, soft, no peritoneal signs. Absent: distended, tenderness - Extremities Exam Extremities exam: Present: warm, radial pulses palpable and symmetrical. Absent : calf tenderness, cyanotic, pedal edema - Neurological Exam Neurological exam: Present: CN II-XII intact, oriented X3, no focal deficits. Absent: pronater drift, facial droop, speech deficit - Skin Skin exam: Present: dry, intact Internal Medicine: Result - Labs CBC & Chem 7: 06/12/17 02:47 06/12/17 02:47 Labs: Short CBC 06/12/17 Range/Units 02:47 WBC 14.9 H (4.3-11.1) K/mcL Hgb 11.6 (11.5-15.4) g/dL Hct 35.6 (35.3-44.9) % Plt Count 265 (140-400) K/mcL Neutrophils # 11.3 H (1.6-8.9) K/mcL BMP 06/12/17 02:47 Sodium 135 L Potassium 4.1 Chloride 103 Carbon Dioxide 27 BUN 19 Creatinine 0.99 Glucose 88 Calcium 9.0 - ABG Interpretation ABG results: PT/INR, D-dimer PT 11.2 Seconds (9.4-12.1) 06/11/17 02:29 - VTE Documentation of Mechanical Device: Intermittent pneumatic compression device Consult Discharge Plan - Plan Referrals: Dennys Mckeon DO [Primary Care Provider] - 06/21/17 9:30 am Lila Cunningham MD [Partnered Physician] - 07/04/17 1:15 pm <Ariel Reilly - Last Filed: 06/12/17 16:53> Date of Encounter: 06/12/17 - Assessment and plan (1) Atrial fibrillation with rapid ventricular response Current Visit: Yes Status: Acute (2) Chest pain Current Visit: Yes Status: Acute Qualifiers: Chest pain type: chest pain due to myocardial ischemia Ischemic chest pain type: unspecified angina pectoris type Qualified Code(s): I25.9 - Chronic ischemic heart disease, unspecified (3) COPD (chronic obstructive pulmonary disease) Current Visit: No Status: Chronic Qualifiers: COPD type: unspecified COPD Qualified Code(s): J44.9 - Chronic obstructive pulmonary disease, unspecified (4) Abnormal TSH Current Visit: No Status: Acute (5) Hypertension Current Visit: No Status: Acute Qualifiers: Hypertension type: essential hypertension Qualified Code(s): I10 - Essential (primary) hypertension (6) DVT prophylaxis Current Visit: Yes Status: Acute - Time Spent With Patient Total time spent is greater than 50% in coordination of care (as documented) at patient's floor/unit and/or counseling patient: - Constitutional Vitals: Temp Pulse Resp BP Pulse Ox 98.1 F 69 15 117/103 96 06/12/17 12:09 06/12/17 12:09 06/12/17 12:09 06/12/17 12:09 06/12/17 12:09 Internal Medicine: Result - Labs CBC & Chem 7: 06/12/17 02:47 06/12/17 02:47 Labs: Short CBC 06/12/17 Range/Units 02:47 WBC 14.9 H (4.3-11.1) K/mcL Hgb 11.6 (11.5-15.4) g/dL Hct 35.6 (35.3-44.9) % Plt Count 265 (140-400) K/mcL Neutrophils # 11.3 H (1.6-8.9) K/mcL BMP 06/12/17 02:47 Sodium 135 L Potassium 4.1 Chloride 103 Carbon Dioxide 27 BUN 19 Creatinine 0.99 Glucose 88 Calcium 9.0 - ABG Interpretation ABG results: PT/INR, D-dimer PT 11.2 Seconds (9.4-12.1) 06/11/17 02:29 - Attending Attestation I examined this patient and my medical decision-making was reviewed with the Resident Physician. I agree with the documented findings, disposition and treatment plan as described except to the extent set forth below. 66 F with CAD s/p PCI S/p PTCA and UMM to the pRCA 06/11/17, Afib on xarelto, Anxiety, NSVTs, she is still in RVR this a.m and Cardizem drip has been restarted during time of eval. On physical exam she is emotionally distraught but stable, no significant findings, labs and imaging reviewed, continue current care
[2017-06-12] MEDS ORDERED: *HR* LORazepam 0.5 MG TABLET PO ONE (10:27)
--- NOTE | 2017-06-12 12:23 | Cardiology Progress Note ---
Date of Encounter: 06/12/17 Time of Encounter: 10:00 Assessment and Plan (1) Ventricular tachycardia Current Visit: Yes Status: Acute Per cardiology: -Had episodes of ventricular tachycardia on holter monitor. -On beta katina. -No VT noted since hospital admission. -Will increase BB. -Will continue to monitor. (2) Chest pain Current Visit: Yes Status: Acute Per cardiology: -Patient reported chest pain as outpatient. -States was crushing chest pain that radiated to bilateral arms. -Troponins elevated. -Denies current chest pain. -On asa, statin, beta katina, plavix. -TTE 05/30/17 with LVEF 60-65%, mild diastolic dysfunction, mild AR, no segmental wall motion abnormalities. -S/p LHC yesterday with UMM to ostial RCA, has remaining disease in SVG to OM, may need staged procedure. -On asa, plavix. Educated on dual anti-platelet therapy uninteruppted for at least one year, unless otherwise directed by cardiology. -Right groin access site without hematoma or ecchymosis. -Will continue to monitor. Qualifiers: Chest pain type: chest pain due to myocardial ischemia Ischemic chest pain type: unspecified angina pectoris type Qualified Code(s): I25.9 - Chronic ischemic heart disease, unspecified (3) Atrial fibrillation Current Visit: Yes Status: Chronic Per cardiology: -Recurrent atrial fibrillation this am. -BB increase, cardizem drip restarted. -Xarelto restarted for anticoagulation. -Will consult EP for assistance with a.fib. Qualifiers: Atrial fibrillation type: paroxysmal Qualified Code(s): I48.0 - Paroxysmal atrial fibrillation (4) Elevated troponin Current Visit: Yes Status: Acute Per cardiology: -Troponins 0.23, 0.24, 0.23, 0.24 -Known history of CAD s/p CABG x2 vessels. -Denies current chest pain. -S/P [facility] as as above. Discussion w patient/family: The assessment and plan as outlined above was discussed with the patient who expressed understanding and agreement. All questions were answered. Thank you for involving us in the care of your patient. Please call with any questions. Discussed and reviewed with . Subjective Principal diagnosis: a.fib RVR, chest pain, Interval history: Pateint denies chest pain. Denies right leg pain. Currently a.fib RVR. Objective Vital Signs, Last 4 Hours Temp Pulse Resp BP Pulse Ox 06/12/17 12:09 98.1 F 69 15 117/103 96 06/12/17 11:11 130 148/94 06/12/17 09:49 150 158/110 06/12/17 09:17 150 168/105 General: Conversant, No Apparent Distress HEENT: Atraumatic, Normocephaly, Mucus Membranes Moist Neck: No JVD, Normal carotid pulses Cardiac: Normal S1 and S2, No Murmur, Other (Irregularly irregular, tachycardic. ) Lungs: Normal Breath Sounds, No Wheeze, Rales, Rhonchi Neuro: Alert and responsive, No focal deficits noted Abdomen: Soft, Non-Tender Skin: No rashes noted on visualized skin Musculoskeletal: No Chest Wall Tenderness, Other (Right groin access site without hematoma or ecchymosis. ) Extremities: No Clubbing, No Cyanosis, No Edema, Normal Pulses Results 06/12/17 02:47 06/12/17 02:47 Lab Results Active Medications Amlodipine Besylate (Norvasc) 5 mg PO DAILY [facility] PRN Reason: Protocol Stop: 12/09/17 11:01 Last Admin: 06/12/17 09:12 Dose: 5 mg Aspirin (Aspirin) 81 mg PO DAILY [facility] Stop: 12/09/17 09:01 Last Admin: 06/12/17 09:12 Dose: 81 mg Atorvastatin Calcium (Lipitor) 40 mg PO QPM [facility] Stop: 12/09/17 18:01 Last Admin: 06/11/17 18:09 Dose: 40 mg Budesonide/Formoterol Fumarate (Symbicort) 2 puff IH BIDR [facility] PRN Reason: Protocol Stop: 12/08/17 22:01 Last Admin: 06/12/17 08:00 Dose: 2 puff Clopidogrel Bisulfate (Plavix) 75 mg PO DAILY [facility] Stop: 12/12/17 09:01 Last Admin: 06/12/17 09:11 Dose: 75 mg Ferrous Sulfate (Ferrous Sulfate) 325 mg PO DAILY [facility] Stop: 12/09/17 09:01 Last Admin: 06/12/17 09:12 Dose: 325 mg Gabapentin (Neurontin) 600 mg PO BID [facility] Stop: 12/09/17 09:01 Last Admin: 06/12/17 09:11 Dose: 600 mg Hydralazine HCl (Hydralazine) 20 mg IVP Q6H PRN PRN Reason: Hypertension Stop: 12/08/17 23:39 Diltiazem HCl 125 mg/ Sodium (Chloride) 125 mls @ 5.208 mls/hr IVC Q24H [facility] PRN Reason: Protocol Stop: 12/10/17 02:31 Last Titration: 06/12/17 12:03 Dose: 0 ml/hr, 0 mls/hr Levalbuterol HCl (Xopenex) 1.25 mg IH [id number] PRN PRN Reason: Shortness Of Breath Stop: 12/08/17 22:01 Lisinopril (Zestril) 20 mg PO DAILY [facility] PRN Reason: Protocol Stop: 12/09/17 11:01 Last Admin: 06/12/17 09:12 Dose: 20 mg Metoprolol Succinate (Toprol Xl) 50 mg PO BID [facility] Stop: 12/12/17 09:01 Last Admin: 06/12/17 09:11 Dose: 50 mg Montelukast Sodium (Singulair) 10 mg PO DAILY PRN PRN Reason: seasonal allergies Stop: 12/08/17 21:02 Naloxone HCl (Narcan) 0.4 mg IVP Q2MIN PRN PRN Reason: SEE COMMENTS Stop: 12/08/17 20:59 Omeprazole (Prilosec) 20 mg PO DAILY [facility] PRN Reason: Protocol Stop: 12/09/17 09:01 Last Admin: 06/12/17 09:12 Dose: 20 mg Prednisone (Prednisone) 10 mg PO DAILY [facility] Stop: 12/09/17 09:01 Last Admin: 06/12/17 09:11 Dose: 10 mg Rivaroxaban (Xarelto) 20 mg PO 1700 [facility] Stop: 12/12/17 17:01 Tramadol HCl (Ultram) 50 mg PO Q8H PRN PRN Reason: Pain Stop: 12/08/17 21:02 Laboratory Tests 06/12/17 06/12/17 02:47 02:47 WBC 14.9 H Hgb 11.6 Potassium 4.1 Creatinine 0.99 - Imaging and Cardiology Chest Xray: report reviewed Echo: report reviewed Cardiac cath: report reviewed - EKG Interpretation EKG results cardiology: other (Telemetry reviewed with average HR 67, however now a.fib RVR HRs 160s.) - VTE Documentation of Mechanical Device: Intermittent pneumatic compression device Consult Discharge Plan - Plan Referrals: Dennys Mckeon DO [Primary Care Provider] - 06/21/17 9:30 am Lila Cunningham MD [Partnered Physician] - 07/04/17 1:15 pm
--- NOTE | 2017-06-12 12:33 | Electrophysiology Consult Note ---
Addendum entered and electronically signed by Cj Ramos CNP 06/12/17 14:28 : Discussed plan of care with Dr. José Luis Little. Sotalol 80 mg BID recommended. I discussed with patient. She agrees to plan. Original Note: <Cj Ramos - Last Filed: 06/12/17 13:29> Date of Encounter: 06/12/17 Time of Encounter: 11:00 Assessment and Plan (1) Atrial fibrillation with rapid ventricular response Status: Acute Recurrent atrial fibrillation with RVR . H/o atrial fibrillation on xarelto. Reports undergoing cardioversion two years ago and did well since that time. Recent holter monitor showed three hours of atrial fibrillation with RVR with HR in the 200's. Initially NSR on admit. Toprol XL increased today but patient went back into atrial fibrillation with RVR. Now on 10 mg/hr IV cardizem gtt. Blood pressure is stable. Started back on xarelto after LHC. CHADS VASc=4. TTE recently completed on 05/31/17 showed EF 60-65%. Mild aortic regurgitation. TSH was low with normal T4. Hospitalist following. Discussed antiarrhythmics vs DCCV with patient. WIll discuss further with Dr. José Luis Little. (2) NSVT (nonsustained ventricular tachycardia) Status: Acute Out-pt holter monitor revealed 4 runs of NSVT up to 8 beats long. TTE showed preserved EF. Patient admitted and underwent LHC with PCI. S/p PTCA and UMM to the pRCA. No recurrent runs of NSVT seen in the last 24 hours. Continue beta-katina. Discussion w patient/family: The assessment and plan as outlined above was discussed with the patient and/or family members who expressed understanding and agreement. All questions were answered. Thank you for involving us in the care of your patient. Please call with any questions. History of Present Illness Consult date: 06/12/17 Requesting physician: Allan Serna Consult reason: Atrial fibrillation with RVR, NSVT Chief complaint: Chest pain, palpitations. History of present illness: Ms. Perez is a 66 year old female with past medical history of CAD, 2V CABG in 2002, and atrial fibrillation on xarelto, carotid artery stenosis, and COPD. She was recently seen by her named account executive, Dr. Serna, and c/o palpitations. A holter monitor was ordered and revealed atrial fibrillation with RVR with HR up to 240 bpm and four episodes of NSVT up to 8 beats long. Patient was notified of results and recommended to go to ED for further evaluation. During her stay she was found to have elevated troponin at 0.23, 0.24, 0.23. She c/o severe chest pain prior to admission. She underwent LHC and received PTCA and UMM to the pRCA. 1/2 bypass grafts were patent. GARLAND-LAD was atretic. There was a 70% stenosis in the SVG to OM. There was no complication from her procedure. She was seen to have paroxysmal atrial fibrillation during her stay. Her home dose of toprol XL was increased. Today she developed recurrent atrial fibrillation with RVR and was placed back on cardizem gtt. Electrophysiology consulted for further management of atrial fibrillation. On my exam she denies chest pain or palpitations. C/o feeling depressed. Past Med Surg Social Fam HX - Past Medical History Attestation: Yes The following information was validated with the patient. Medical history: asthma, atrial fibrillation, COPD, coronary artery disease, GERD, hyperlipidemia, hypertension Psychiatric history: no psych history - Past Surgical History Surgical History: carotid endarterectomy, cholecystectomy, coronary bypass (CABG ), hysterectomy - Social History Smoking Status: Current every day smoker Packs per day: 0.5 Smokeless Tobacco Status: No Alcohol use: none Drug use: none Medications and Allergies Albuterol Sulfate [Albuterol Inhaler] 2 puff IH Q6HR 11/15/14 [History] Atorvastatin [Lipitor] 40 mg PO QPM 11/15/14 [History] Gabapentin [Neurontin] 600 mg PO BID 11/15/14 [History] Montelukast [Singulair] 10 mg PO DAILY PRN 11/15/14 [History] Omeprazole [PriLOSEC] 20 mg PO DAILY 11/15/14 [History] Aspirin 81 mg PO DAILY 30 Days tab.chew 11/17/14 [Rx] Rivaroxaban [Xarelto] 20 mg PO 1700 30 Days tablet 11/17/14 [Rx] Budesonide/Formoterol 160/4.5 [Symbicort 160/4.5] 2 puff IH BIDR 06/08/17 [ History] Ferrous Sulfate 325 mg PO DAILY 06/08/17 [History] Risedronate Sodium [Actonel] 35 mg PO MO 06/08/17 [History] Tramadol HCl [Ultram] 50 mg PO Q8H PRN 06/08/17 [History] predniSONE [PredniSONE] 10 mg PO DAILY 06/08/17 [History] Clopidogrel [Plavix] 75 mg PO DAILY #30 tablet 06/14/17 [Rx] Sotalol [Betapace] 40 mg PO Q12H #15 tablet 06/14/17 [Rx] 3 Allergy/AdvReac Type Severity Reaction Status Date / Time codeine AdvReac See Verified 11/15/14 14:30 Comments All Systems Review: The remainder of the systems were reviewed and are negative Physical Examination Vital Signs, Last 4 Hours Temp Pulse Resp BP Pulse Ox 06/12/17 12:09 98.1 F 69 15 117/103 96 06/12/17 11:11 130 148/94 06/12/17 09:49 150 158/110 06/12/17 09:17 150 168/105 General: Conversant, No Apparent Distress HEENT: Atraumatic, Normocephaly, Mucus Membranes Moist Neck: No JVD, Normal carotid pulses Cardiac: Other (Irregularly irregular, atrial fibrillation with RVR on telemetry ) Lungs: Normal Breath Sounds, No Wheeze, Rales, Rhonchi Neuro: Alert and responsive, No focal deficits noted Abdomen: Soft, Non-Tender Skin: No rashes noted on visualized skin Musculoskeletal: No Chest Wall Tenderness Extremities: No Clubbing, No Cyanosis, No Edema, Normal Pulses Results 06/12/17 02:47 06/12/17 02:47 Lab Results 06/12/17 06/12/17 06/12/17 02:47 02:47 02:47 WBC 14.9 H Hgb 11.6 Hct 35.6 Plt Count 265 APTT 31.0 D Sodium 135 L Potassium 4.1 Chloride 103 Carbon Dioxide 27 BUN 19 Creatinine 0.99 Glucose 88 Calcium 9.0 - Imaging and Cardiology Echo: report reviewed Cardiac cath: report reviewed Holter: report reviewed - EKG Interpretation EKG results cardiology: personally reviewed Consult Discharge Plan - Plan Instructions: Sotalol (By mouth), Clopidogrel (By mouth), Atrial Fibrillation ( DC) Referrals: Skocik,Dennys J, DO [Primary Care Provider] - 06/21/17 9:30 am Lila Cunningham MD [Partnered Physician] - 07/04/17 1:15 pm Prescriptions: Clopidogrel [Plavix] 75 mg PO DAILY #30 tablet Sotalol [Betapace] 40 mg PO Q12H #15 tablet <José Luis Little - Last Filed: 06/18/17 10:54> Date of Encounter: 06/18/17 - Attending Attestation I have personally performed a face to face evaluation on this patient. I have reviewed and agree with the care plan. History and Exam by me shows: PAF and NSVT. Found to have significant CAD. Recommend sotalol for continued PAF. Assessment and Plan Discussion w patient/family: The assessment and plan as outlined above was discussed with the patient and/or family members who expressed understanding and agreement. All questions were answered. Thank you for involving us in the care of your patient. Please call with any questions. History of Present Illness History of present illness: Ms. Perez is a 66 year old female All Systems Review: The remainder of the systems were reviewed and are negative Results 06/14/17 03:38 06/13/17 04:02
--- NOTE | 2017-06-12 16:13 | Electrocardiograph Report ---
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
--- NOTE | 2017-06-12 16:22 | Electrocardiograph Report ---
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
[2017-06-12] MEDS: *HR* Rivaroxaban 10 MG TABLET PO SCH (16:49)
[2017-06-13 04:29] LABS: Basophils % 0.3 %; Eosinophils # 0.2 K/mcL (0.0-0.6); Eosinophils % 1.5 %; Hematocrit 35.8 % (35.3-44.9); Hemoglobin 11.6 g/dL (11.5-15.4); Immature Granulocytes % 0.7 % (0-4); Lymphocytes # 2.9 K/mcL (0.6-4.6); Lymphocytes % 19.4 %; Mean Corpuscular HGB Conc 32.4 g/dL (31.6-35.5); Mean Corpuscular Hemoglobin 29.6 pg (28.0-33.3); Mean Corpuscular Volume 91.3 fL (83.0-100.0); Mean Platelet Volume 10.3 fL (9.4-12.4); Monocytes % 6.7 %; Neutrophils # 10.7 K/mcL (1.6-8.9); Platelet Count 235 K/mcL (140-400); Red Blood Count 3.92 M/mcL (3.82-4.97); Red Cell Distribution Width 14.5 % (11.5-14.5); Segmented Neutrophils % 71.4 %
[2017-06-13 04:46] LABS: BUN/Creatinine Ratio 22 (6-26); Blood Urea Nitrogen 17 mg/dL (8-23); Carbon Dioxide 25 mEq/L (23-29); Chloride 102 mEq/L (98-107); Glucose 91 mg/dL (70-105); Osmolality,Calculated 281 (280-300); Potassium 3.9 mEq/L (3.5-5.1); Sodium 135 mEq/L (136-145); eGFR For African Americans > 60 (> 60); eGFR For Non-African Americans > 60 (> 60)
[2017-06-13] MEDS: Aspirin 81 MG TAB.CHEW PO SCH (08:54)
[2017-06-13] MEDS: predniSONE 10 MG TABLET PO SCH (08:54)
[2017-06-13] MEDS: Gabapentin 300 MG CAPSULE PO SCH ×2 (08:54→21:44)
[2017-06-13] MEDS: Lisinopril 20 MG TABLET PO SCH (08:54)
[2017-06-13] MEDS: amLODIPine 5 MG TABLET PO SCH (08:54)
[2017-06-13] MEDS ORDERED: Metoprolol XL (24 HR) Succ 50 MG TAB.ER.24H PO SCH ×2 (09:00→09:15)
--- NOTE | 2017-06-13 09:07 | Electrophysiology Consult Note ---
Date of Encounter: 06/13/17 Time of Encounter: 09:03 Assessment and Plan (1) Atrial fibrillation with rapid ventricular response Current Visit: Yes Status: Acute Recurrent atrial fibrillation with RVR . H/o atrial fibrillation on xarelto. Reports undergoing cardioversion two years ago and did well since that time. Recent holter monitor showed three hours of atrial fibrillation with RVR with HR in the 200's. Initially NSR on admit. Toprol XL increased today but patient went back into atrial fibrillation with RVR. Now on 10 mg/hr IV cardizem gtt. Blood pressure is stable. Started back on xarelto after LHC. CHADS VASc=4. TTE recently completed on 05/31/17 showed EF 60-65%. Mild aortic regurgitation. TSH was low with normal T4. Hospitalist following. Discussed antiarrhythmics vs DCCV with patient. WIll discuss further with Dr. José Luis Little. (2) NSVT (nonsustained ventricular tachycardia) Current Visit: Yes Status: Acute Out-pt holter monitor revealed 4 runs of NSVT up to 8 beats long. TTE showed preserved EF. Patient admitted and underwent LHC with PCI. [facility] No recurrent runs of NSVT seen in the last 24 hours. Continue beta-katina. Discussion w patient/family: The assessment and plan as outlined above was discussed with the patient and/or family members who expressed understanding and agreement. All questions were answered. Thank you for involving us in the care of your patient. Please call with any questions. History of Present Illness History of present illness: Ms. Perez is a 66 year old female Past Med Surg Social Fam HX - Past Medical History Medical history: asthma, atrial fibrillation, COPD, coronary artery disease, GERD, hyperlipidemia, hypertension Psychiatric history: no psych history - Past Surgical History Surgical History: carotid endarterectomy, cholecystectomy, coronary bypass (CABG ), hysterectomy - Social History Smoking Status: Current every day smoker Packs per day: 0.5 Smokeless Tobacco Status: No Alcohol use: none Drug use: none Medications and Allergies Albuterol Sulfate [Albuterol Inhaler] 2 puff IH Q6HR 11/15/14 [History] Atorvastatin [Lipitor] 40 mg PO QPM 11/15/14 [History] Gabapentin [Neurontin] 600 mg PO BID 11/15/14 [History] Montelukast [Singulair] 10 mg PO DAILY PRN 11/15/14 [History] Omeprazole [PriLOSEC] 20 mg PO DAILY 11/15/14 [History] Aspirin 81 mg PO DAILY 30 Days tab.chew 11/17/14 [Rx] Rivaroxaban [Xarelto] 20 mg PO 1700 30 Days tablet 11/17/14 [Rx] Budesonide/Formoterol 160/4.5 [Symbicort 160/4.5] 2 puff IH BIDR 06/08/17 [ History] Ferrous Sulfate [Ferrous Sulfate] 325 mg PO DAILY 06/08/17 [History] Metoprolol XL (24 HR) Succ [Toprol XL] 50 mg PO DAILY 06/08/17 [History] Risedronate Sodium [Actonel] 35 mg PO MO 06/08/17 [History] Tramadol HCl [Ultram] 50 mg PO Q8H PRN 06/08/17 [History] predniSONE [PredniSONE] 10 mg PO DAILY 06/08/17 [History] 3 Allergy/AdvReac Type Severity Reaction Status Date / Time codeine AdvReac See Verified 11/15/14 14:30 Comments All Systems Review: The remainder of the systems were reviewed and are negative Physical Examination Vital Signs, Last 4 Hours Temp Pulse Resp BP Pulse Ox 06/13/17 07:29 98.4 F 56 16 136/63 100 Results 06/13/17 04:02 06/13/17 04:02 Lab Results 06/13/17 06/13/17 04:02 04:02 WBC 15.0 H Hgb 11.6 Hct 35.8 Plt Count 235 Sodium 135 L Potassium 3.9 Chloride 102 Carbon Dioxide 25 BUN 17 Creatinine 0.79 Glucose 91 Calcium 9.0 Consult Discharge Plan - Plan Referrals: Dennys Mckeon DO [Primary Care Provider] - 06/21/17 9:30 am Lila Cunningham MD [Partnered Physician] - 07/04/17 1:15 pm
--- NOTE | 2017-06-13 09:11 | Electrophysiology ProgressNote ---
Date of Encounter: 06/13/17 Time of Encounter: 08:30 Assessment and Plan (1) Atrial fibrillation with rapid ventricular response Current Visit: Yes Status: Acute Recurrent atrial fibrillation with RVR . H/o atrial fibrillation on xarelto. Reports undergoing cardioversion two years ago and did well since that time. Recent holter monitor showed three hours of atrial fibrillation with RVR with HR in the 200's. Initially NSR on admit. Sotalol start yesterday. S/p two doses. Currently sinus bradycardia. EKG shows sinus bradycardia, HR 53. QT/QTC 511/ 493. Corrected QTC was 480. Reviewed with Dr. José Luis Little. We will decrease sotalol to 40 mg BID for prolonging QTc. Continue to monitor. Toprol XL held due to bradycardia. Continue at 25 mg dose. (2) NSVT (nonsustained ventricular tachycardia) Current Visit: Yes Status: Acute Out-pt holter monitor revealed 4 runs of NSVT up to 8 beats long. TTE showed preserved EF. Patient admitted and underwent LHC with PCI. S/p PTCA and UMM to the pRCA. No recurrent runs of NSVT seen in the last 48 hours. Potassium remains normal, add mg to am labs. Continue beta-katina as tolerated. Discussion w patient/family: The assessment and plan as outlined above was discussed with the patient and/or family members who expressed understanding and agreement. All questions were answered. Thank you for involving us in the care of your patient. Please call with any questions. Subjective Principal diagnosis: a.fib RVR, chest pain, Interval history: Ms. Perez reports she is feeling well. No events overnight. Objective Vital Signs, Last 4 Hours Temp Pulse Resp BP Pulse Ox 06/13/17 07:29 98.4 F 56 16 136/63 100 General: Conversant, No Apparent Distress HEENT: Atraumatic, Normocephaly, Mucus Membranes Moist Neck: No JVD, Normal carotid pulses Cardiac: Reg Rate and Rhythm, Normal S1 and S2, No Murmur Lungs: Normal Breath Sounds, No Wheeze, Rales, Rhonchi Neuro: Alert and responsive, No focal deficits noted Abdomen: Soft, Non-Tender Skin: No rashes noted on visualized skin Musculoskeletal: No Chest Wall Tenderness Extremities: No Clubbing, No Cyanosis, No Edema, Normal Pulses Results 06/13/17 04:02 06/13/17 04:02 Lab Results 06/13/17 06/13/17 04:02 04:02 WBC 15.0 H Hgb 11.6 Hct 35.8 Plt Count 235 Sodium 135 L Potassium 3.9 Chloride 102 Carbon Dioxide 25 BUN 17 Creatinine 0.79 Glucose 91 Calcium 9.0 - Imaging and Cardiology Echo: report reviewed - EKG Interpretation EKG results cardiology: personally reviewed - VTE Documentation of Mechanical Device: Intermittent pneumatic compression device Consult Discharge Plan - Plan Referrals: Dennys Mckeon DO [Primary Care Provider] - 06/21/17 9:30 am Lila Cunningham MD [Partnered Physician] - 07/04/17 1:15 pm
--- NOTE | 2017-06-13 10:32 | Cardiology Progress Note ---
Date of Encounter: 06/13/17 Time of Encounter: 09:30 Assessment and Plan (1) Ventricular tachycardia Current Visit: Yes Status: Acute Per cardiology: -Had episodes of ventricular tachycardia on holter monitor. -On beta katina. -No VT noted since hospital admission. -Started on sotalol per EP. -Appreciate EP recommendations. (2) Chest pain Current Visit: Yes Status: Acute Per cardiology: -Patient reported chest pain as outpatient. -Denies current chest pain. -TTE 05/30/17 with LVEF 60-65%, mild diastolic dysfunction, mild AR, no segmental wall motion abnormalities. -S/p LHC 06/11/17 with UMM to ostial RCA, has remaining disease in SVG to OM, may need staged procedure. -On asa, plavix. Educated on dual anti-platelet therapy uninteruppted for at least one year, unless otherwise directed by cardiology. -Right groin access site without hematoma or ecchymosis. -Will continue to monitor. Qualifiers: Chest pain type: chest pain due to myocardial ischemia Ischemic chest pain type: unspecified angina pectoris type Qualified Code(s): I25.9 - Chronic ischemic heart disease, unspecified (3) Atrial fibrillation Current Visit: Yes Status: Chronic Per cardiology: -Recurrent atrial fibrillation this am. -BB increase, cardizem drip restarted. -Xarelto restarted for anticoagulation. -Will consult EP for assistance with a.fib. Now on sotalol. -Appreciate EP recommendatins. Qualifiers: Atrial fibrillation type: paroxysmal Qualified Code(s): I48.0 - Paroxysmal atrial fibrillation (4) Elevated troponin Current Visit: Yes Status: Acute Per cardiology: -Troponins 0.23, 0.24, 0.23, 0.24 -Known history of CAD s/p CABG x2 vessels. -Denies current chest pain. -S/P LCH as as above. Discussion w patient/family: The assessment and plan as outlined above was discussed with the patient who expressed understanding and agreement. All questions were answered. Thank you for involving us in the care of your patient. Please call with any questions. Discussed and reviewed with . Subjective Principal diagnosis: a.fib RVR, chest pain, Interval history: Pateint denies chest pain. Denies right leg pain. Objective Vital Signs, Last 4 Hours Temp Pulse Resp BP Pulse Ox 06/13/17 07:29 98.4 F 56 16 136/63 100 General: Conversant, No Apparent Distress HEENT: Atraumatic, Normocephaly, Mucus Membranes Moist Neck: No JVD, Normal carotid pulses Cardiac: Reg Rate and Rhythm, Normal S1 and S2, No Murmur Lungs: Normal Breath Sounds, No Wheeze, Rales, Rhonchi Neuro: Alert and responsive, No focal deficits noted Abdomen: Soft, Non-Tender Skin: No rashes noted on visualized skin Musculoskeletal: No Chest Wall Tenderness, Other (Right groin access site without hematoma or ecchymosis. ) Extremities: No Clubbing, No Cyanosis, No Edema, Normal Pulses Results 06/13/17 04:02 06/13/17 04:02 Lab Results Active Medications Amlodipine Besylate (Norvasc) 5 mg PO DAILY [facility]ITALY PRN Reason: Protocol Stop: 12/09/17 11:01 Last Admin: 06/13/17 08:54 Dose: 5 mg Aspirin (Aspirin) 81 mg PO DAILY [facility]ITALY Stop: 12/09/17 09:01 Last Admin: 06/13/17 08:54 Dose: 81 mg Atorvastatin Calcium (Lipitor) 40 mg PO QPM [facility]ITALY Stop: 12/09/17 18:01 Last Admin: 06/12/17 16:49 Dose: 40 mg Budesonide/Formoterol Fumarate (Symbicort) 2 puff IH BIDR [facility]ITALY PRN Reason: Protocol Stop: 12/08/17 22:01 Last Admin: 06/12/17 20:29 Dose: 2 puff Clopidogrel Bisulfate (Plavix) 75 mg PO DAILY [facility] Stop: 12/12/17 09:01 Last Admin: 06/13/17 08:54 Dose: 75 mg Ferrous Sulfate (Ferrous Sulfate) 325 mg PO DAILY [facility] Stop: 12/09/17 09:01 Last Admin: 06/13/17 08:54 Dose: 325 mg Gabapentin (Neurontin) 600 mg PO BID [facility]Y Stop: 12/09/17 09:01 Last Admin: 06/13/17 08:54 Dose: 600 mg Hydralazine HCl (Hydralazine) 20 mg IVP Q6H PRN PRN Reason: Hypertension Stop: 12/08/17 23:39 Levalbuterol HCl (Xopenex) 1.25 mg IH [id number] PRN PRN Reason: Shortness Of Breath Stop: 12/08/17 22:01 Lisinopril (Zestril) 20 mg PO DAILY VITALY PRN Reason: Protocol Stop: 12/09/17 11:01 Last Admin: 06/13/17 08:54 Dose: 20 mg Metoprolol Succinate (Toprol Xl) 25 mg PO DAILY [facility] Stop: 12/13/17 09:16 Montelukast Sodium (Singulair) 10 mg PO DAILY PRN PRN Reason: seasonal allergies Stop: 12/08/17 21:02 Naloxone HCl (Narcan) 0.4 mg IVP Q2MIN PRN PRN Reason: SEE COMMENTS Stop: 12/08/17 20:59 Omeprazole (Prilosec) 20 mg PO DAILY VITALY PRN Reason: Protocol Stop: 12/09/17 09:01 Last Admin: 06/13/17 08:54 Dose: 20 mg Prednisone (Prednisone) 10 mg PO DAILY [facility] Stop: 12/09/17 09:01 Last Admin: 06/13/17 08:54 Dose: 10 mg Rivaroxaban (Xarelto) 20 mg PO 1700 [facility] Stop: 12/12/17 17:01 Last Admin: 06/12/17 16:49 Dose: 20 mg Sotalol HCl (Betapace) 40 mg PO Q12H [facility] Stop: 12/13/17 15:01 Tramadol HCl (Ultram) 50 mg PO Q8H PRN PRN Reason: Pain Stop: 12/08/17 21:02 Laboratory Tests 06/13/17 06/13/17 04:02 04:02 WBC 15.0 H Hgb 11.6 Creatinine 0.79 - Imaging and Cardiology Chest Xray: report reviewed Echo: report reviewed Cardiac cath: report reviewed - EKG Interpretation EKG results cardiology: other (Telemetry reviewed with average HR previous 12 hours noted to be 56, SB. PVCs and PACs noted.) - VTE Documentation of Mechanical Device: Intermittent pneumatic compression device Consult Discharge Plan - Plan Referrals: Dennys Mckeon DO [Primary Care Provider] - 06/21/17 9:30 am Lila Cunningham MD [Partnered Physician] - 07/04/17 1:15 pm
[2017-06-13] MEDS: Budesonide/Formoterol 160/4.5 MDI IH SCH ×2 (10:43→20:30)
--- NOTE | 2017-06-13 10:44 | Internal Med Progress Note ---
<Gopi Arellano - Last Filed: 06/13/17 11:33> Date of Encounter: 06/13/17 Time of Encounter: 10:44 - Assessment and plan (1) Atrial fibrillation with rapid ventricular response Current Visit: Yes Status: Acute Assessment and plan: Patient with history of A. fib, recent non-sustained V. tach. Continue Toprol, Xarelto Start Sotalol per cardiology. Continue Telemetry monitoring. (2) Chest pain Current Visit: Yes Status: Acute Assessment and plan: Resolved s/p LHC with proximal RCA stent. Elevated troponins 0.24/0.23/0.24 on admission. TTE 05/30/17 with LVEF 60-65%, mild diastolic dysfunction, mild AR, no segmental wall motion abnormalities. Continue metoprolol, atorvastatin, ASA, Plavix. Qualifiers: Chest pain type: chest pain due to myocardial ischemia Ischemic chest pain type: unspecified angina pectoris type Qualified Code(s): I25.9 - Chronic ischemic heart disease, unspecified (3) COPD (chronic obstructive pulmonary disease) Current Visit: No Status: Chronic Assessment and plan: Stable. Patient does not appear in COPD exacerbation therefore will continue home medication including prednisone 10 mg daily. No IV steroid is planned at this time. Continue monitoring Qualifiers: COPD type: unspecified COPD Qualified Code(s): J44.9 - Chronic obstructive pulmonary disease, unspecified (4) Hypertension Current Visit: No Status: Acute Assessment and plan: Stable. Continue beta katina, lisinopril and amlodipine. Hydralazine when necessary. Qualifiers: Hypertension type: essential hypertension Qualified Code(s): I10 - Essential (primary) hypertension (5) Abnormal TSH Current Visit: No Status: Acute Assessment and plan: History of thyroid disease. Low TSH with normal free T4 , unlikely hyperthyroidism, no clinical symptoms of thyrotoxicosis Outpatient management (6) DVT prophylaxis Current Visit: Yes Status: Acute Assessment and plan: Patient on Xarelto. - Time Spent With Patient Total time spent is greater than 50% in coordination of care (as documented) at patient's floor/unit and/or counseling patient: - Subjective Interval history: Patient seen and examined knitting in bedside chair. She reports chronic sciatica pain less severe with mobility. She denies any new c/o. Patient was started on Sotalol per cardiology and will continue to be monitored on telemetry. - Constitutional Vitals: Temp Pulse Resp BP Pulse Ox 98.4 F 56 16 136/63 100 06/13/17 07:29 06/13/17 07:29 06/13/17 07:29 06/13/17 07:29 06/13/17 07:29 General appearance: Present: A&O X 3 - Head Head exam: Present: atraumatic, normocephalic - Eye Eye exam: Present: PERRL, conjuntiva pink, sclera anicteric Pupils: Present: PERRL - ENT ENT exam: Present: mucous membranes moist, normal oropharynx - Neck Neck exam general surgery: Present: supple, trachea midline. Absent: lymphadenopathy - Respiratory Respiratory exam: Present: CTAB. Absent: accessory muscle use, rales, rhonchi, wheezes - Cardiovascular Cardiovascular exam: Present: irregular rhythm, +S1, +S2. Absent: diastolic murmur, gallop, RRR, rubs, systolic murmur - GI/Abdominal GI/Abdominal exam: Present: normal bowel sounds, soft, no peritoneal signs. Absent: distended, tenderness - Extremities Exam Extremities exam: Present: normal capillary refill, warm, radial pulses palpable and symmetrical. Absent: calf tenderness, cyanotic, pedal edema - Back Exam Back exam: Present: normal inspection. Absent: tenderness - Neurological Exam Neurological exam: Present: CN II-XII intact, oriented X3, no focal deficits. Absent: pronater drift, facial droop, speech deficit - Psychiatric Psychiatric exam: Present: normal affect, normal mood - Skin Skin exam: Present: dry, intact, normal color, warm Internal Medicine: Result - Labs CBC & Chem 7: 06/13/17 04:02 06/13/17 04:02 Labs: Short CBC 06/13/17 Range/Units 04:02 WBC 15.0 H (4.3-11.1) K/mcL Hgb 11.6 (11.5-15.4) g/dL Hct 35.8 (35.3-44.9) % Plt Count 235 (140-400) K/mcL Neutrophils # 10.7 H (1.6-8.9) K/mcL BMP 06/13/17 04:02 Sodium 135 L Potassium 3.9 Chloride 102 Carbon Dioxide 25 BUN 17 Creatinine 0.79 Glucose 91 Calcium 9.0 - ABG Interpretation ABG results: PT/INR, D-dimer PT 11.2 Seconds (9.4-12.1) 06/11/17 02:29 - Pulse Oximetry Interpretation Digit-Finger Pulse Oximetry Readin (On RA) - VTE Documentation of Mechanical Device: Intermittent pneumatic compression device Consult Discharge Plan - Plan Referrals: Dennys Mckeon DO [Primary Care Provider] - 06/21/17 9:30 am Lila Cunningham MD [Partnered Physician] - 07/04/17 1:15 pm <Ariel Reilly - Last Filed: 06/13/17 15:21> Date of Encounter: 06/13/17 - Assessment and plan (1) Atrial fibrillation with rapid ventricular response Current Visit: Yes Status: Acute (2) Chest pain Current Visit: Yes Status: Acute Qualifiers: Chest pain type: chest pain due to myocardial ischemia Ischemic chest pain type: unspecified angina pectoris type Qualified Code(s): I25.9 - Chronic ischemic heart disease, unspecified (3) COPD (chronic obstructive pulmonary disease) Current Visit: No Status: Chronic Qualifiers: COPD type: unspecified COPD Qualified Code(s): J44.9 - Chronic obstructive pulmonary disease, unspecified (4) Abnormal TSH Current Visit: No Status: Acute (5) Hypertension Current Visit: No Status: Acute Qualifiers: Hypertension type: essential hypertension Qualified Code(s): I10 - Essential (primary) hypertension (6) DVT prophylaxis Current Visit: Yes Status: Acute - Time Spent With Patient Total time spent is greater than 50% in coordination of care (as documented) at patient's floor/unit and/or counseling patient: - Constitutional Vitals: Temp Pulse Resp BP Pulse Ox 98.2 F 63 16 139/61 97 06/13/17 11:50 06/13/17 11:50 06/13/17 11:50 06/13/17 11:50 06/13/17 11:50 Internal Medicine: Result - Labs CBC & Chem 7: 06/13/17 04:02 06/13/17 04:02 Labs: Short CBC 06/13/17 Range/Units 04:02 WBC 15.0 H (4.3-11.1) K/mcL Hgb 11.6 (11.5-15.4) g/dL Hct 35.8 (35.3-44.9) % Plt Count 235 (140-400) K/mcL Neutrophils # 10.7 H (1.6-8.9) K/mcL BMP 06/13/17 04:02 Sodium 135 L Potassium 3.9 Chloride 102 Carbon Dioxide 25 BUN 17 Creatinine 0.79 Glucose 91 Calcium 9.0 - ABG Interpretation ABG results: PT/INR, D-dimer PT 11.2 Seconds (9.4-12.1) 06/11/17 02:29 - Attending Attestation I examined this patient and my medical decision-making was reviewed with the Resident Physician. I agree with the documented findings, disposition and treatment plan as described except to the extent set forth below. 66 F with CAD s/p PCI S/p PTCA and UMM to the pRCA 06/11/17, Afib on xarelto, Anxiety, NSVTs, She has been started on sotalol by EPS cardio 06/12. She has no new complains Physical exam: VSS, not in distress, AAOX3, Chest is CTAB, HS S1, S2 sinus, abdomen is benign, no pedal edema. Labs and Imaging reviewed-leukoytosis. Plan is to continue current care as recommended by cardio, leukocytosis is possibly due to steroids, Rest of details is as in resident physician's documentation
--- NOTE | 2017-06-13 12:34 | Electrocardiograph Report ---
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
[2017-06-13 13:05] LABS: Magnesium 1.8 mg/dL (1.6-2.6)
[2017-06-13] MEDS: *HR* Rivaroxaban 10 MG TABLET PO SCH (17:14)
[2017-06-14 03:51] LABS: Basophils # 0.1 K/mcL (0.0-0.2); Basophils % 0.3 %; Eosinophils # 0.3 K/mcL (0.0-0.6); Eosinophils % 1.8 %; Hematocrit 32.9 % (35.3-44.9); Hemoglobin 11.1 g/dL (11.5-15.4); Immature Granulocytes % 1.3 % (0-4); Lymphocytes # 3.1 K/mcL (0.6-4.6); Lymphocytes % 20.5 %; Mean Corpuscular HGB Conc 33.7 g/dL (31.6-35.5); Mean Corpuscular Hemoglobin 30.4 pg (28.0-33.3); Mean Corpuscular Volume 90.1 fL (83.0-100.0); Mean Platelet Volume 10.4 fL (9.4-12.4); Monocytes # 1.1 K/mcL (0.0-1.3); Monocytes % 7.2 %; Neutrophils # 10.4 K/mcL (1.6-8.9); Platelet Count 223 K/mcL (140-400); Red Blood Count 3.65 M/mcL (3.82-4.97); Segmented Neutrophils % 68.9 %
[2017-06-14] MEDS: amLODIPine 5 MG TABLET PO SCH (09:43)
[2017-06-14] MEDS: Aspirin 81 MG TAB.CHEW PO SCH (09:44)
[2017-06-14] MEDS: Lisinopril 20 MG TABLET PO SCH (09:44)
[2017-06-14] MEDS: predniSONE 10 MG TABLET PO SCH (09:44)
[2017-06-14] MEDS: Gabapentin 300 MG CAPSULE PO SCH (09:44)
--- NOTE | 2017-06-14 09:51 | Electrophysiology ProgressNote ---
Date of Encounter: 06/14/17 Time of Encounter: 09:44 Assessment and Plan (1) Atrial fibrillation with rapid ventricular response Current Visit: Yes Status: Acute Recurrent atrial fibrillation with RVR during stay. H/o atrial fibrillation on xarelto. Reports undergoing cardioversion two years ago and did well since that time. Recent holter monitor showed three hours of atrial fibrillation with RVR with HR in the 200's. Initially NSR on admit. Sotalol start during stay. S/p four doses. Currently sinus bradycardia. Sotalol decreased for prolonged QTc yesterday. EKG 06/11/17 showed sinus bradycardia, QTc 443. EKG 06/13/17 shows sinus bradycardia, HR 53. QT/QTC 511/ 493. Corrected QT per calculation was 480. EKG 06/14/17 shows sinus bradycardia, HR 53, QT/QTc 470/452. Corrected Qt per calculation was 442. Continue sotalol to 40 mg BID and stop low dose toprol . Ok to d/c home after 5th dose with EKG 2 hours post if QT/QTc is okay. [facility] will coordinate f/u. Please call with questions. (2) NSVT (nonsustained ventricular tachycardia) Current Visit: Yes Status: Acute Out-pt holter monitor revealed 4 runs of NSVT up to 8 beats long. TTE showed preserved EF. Patient admitted and underwent LHC with PCI. S/p PTCA and UMM to the pRCA. No recurrent runs of NSVT seen in the last 48 hours. Potassium remains normal, add mg to am labs. Continue beta-katina as tolerated. Discussion w patient/family: The assessment and plan as outlined above was discussed with the patient and/or family members who expressed understanding and agreement. All questions were answered. Thank you for involving us in the care of your patient. Please call with any questions. Subjective Principal diagnosis: a.fib RVR, chest pain, Interval history: Ms. Perez reports she is feeling well. No events overnight. SHe is ambulating in the hallway with no symptoms. Objective Vital Signs, Last 4 Hours Temp Pulse Resp BP Pulse Ox 06/14/17 07:36 98.1 F 59 15 130/53 94 General: Conversant, No Apparent Distress HEENT: Atraumatic, Normocephaly, Mucus Membranes Moist Neck: No JVD, Normal carotid pulses Cardiac: Reg Rate and Rhythm, Normal S1 and S2, No Murmur Lungs: Normal Breath Sounds, No Wheeze, Rales, Rhonchi Neuro: Alert and responsive, No focal deficits noted Abdomen: Soft, Non-Tender Skin: No rashes noted on visualized skin Musculoskeletal: No Chest Wall Tenderness Extremities: No Clubbing, No Cyanosis, No Edema, Normal Pulses Results 06/14/17 03:38 06/13/17 04:02 Lab Results 06/13/17 06/14/17 04:02 03:38 WBC 15.1 H Hgb 11.1 L Hct 32.9 L Plt Count 223 Sodium 135 L Potassium 3.9 Chloride 102 Carbon Dioxide 25 BUN 17 Creatinine 0.79 Glucose 91 Calcium 9.0 Magnesium 1.8 - Imaging and Cardiology Echo: report reviewed Cardiac cath: report reviewed - VTE Documentation of Mechanical Device: Intermittent pneumatic compression device Consult Discharge Plan - Plan Referrals: Dennys Mckeon DO [Primary Care Provider] - 06/21/17 9:30 am Lila Cunningham MD [Partnered Physician] - 07/04/17 1:15 pm
[2017-06-14] MEDS: Budesonide/Formoterol 160/4.5 MDI IH SCH (11:14)
[2017-06-14 11:28] VITALS: BP 145/61
--- NOTE | 2017-06-14 12:00 | Internal Med Progress Note ---
Date of Encounter: 06/14/17 - Assessment and plan (1) Atrial fibrillation with rapid ventricular response Current Visit: Yes Status: Acute (2) Chest pain Current Visit: Yes Status: Acute Qualifiers: Chest pain type: chest pain due to myocardial ischemia Ischemic chest pain type: unspecified angina pectoris type Qualified Code(s): I25.9 - Chronic ischemic heart disease, unspecified (3) COPD (chronic obstructive pulmonary disease) Current Visit: No Status: Chronic Qualifiers: COPD type: unspecified COPD Qualified Code(s): J44.9 - Chronic obstructive pulmonary disease, unspecified (4) Abnormal TSH Current Visit: No Status: Acute (5) Hypertension Current Visit: No Status: Acute Qualifiers: Hypertension type: essential hypertension Qualified Code(s): I10 - Essential (primary) hypertension (6) DVT prophylaxis Current Visit: Yes Status: Acute - Time Spent With Patient Total time spent is greater than 50% in coordination of care (as documented) at patient's floor/unit and/or counseling patient: - Subjective Interval history: Patient had episode of A fib RVR. Cardizem drip was restarted. She feels more fatigued today. Teary eyed. Denies CP, SOB. Reports that she did have episode of palpitations since admission. Has no acute complaints. - Constitutional Vitals: Temp Pulse Resp BP Pulse Ox 98.2 F 58 16 145/61 96 06/14/17 11:25 06/14/17 11:25 06/14/17 11:25 06/14/17 11:25 06/14/17 11:25 General appearance: Present: A&O X 3 Internal Medicine: Result - Labs CBC & Chem 7: 06/14/17 03:38 06/13/17 04:02 Labs: Short CBC 06/14/17 Range/Units 03:38 WBC 15.1 H (4.3-11.1) K/mcL Hgb 11.1 L (11.5-15.4) g/dL Hct 32.9 L (35.3-44.9) % Plt Count 223 (140-400) K/mcL Neutrophils # 10.4 H (1.6-8.9) K/mcL BMP 06/13/17 04:02 Sodium 135 L Potassium 3.9 Chloride 102 Carbon Dioxide 25 BUN 17 Creatinine 0.79 Glucose 91 Calcium 9.0 - ABG Interpretation ABG results: PT/INR, D-dimer PT 11.2 Seconds (9.4-12.1) 06/11/17 02:29 - VTE Documentation of Mechanical Device: Intermittent pneumatic compression device Consult Discharge Plan - Plan Referrals: Dennys Mckeon DO [Primary Care Provider] - 06/21/17 9:30 am Lila Cunningham MD [Partnered Physician] - 07/04/17 1:15 pm
--- NOTE | 2017-06-14 13:53 | Discharge Summary ---
<TommieOdiliaAriel T - Last Filed: 06/14/17 15:26> Orders not resulted at time of discharge: Pending orders 06/14/17 16:00 EKG [ECG 12 lead ECG] [ECG] Routine Date of Encounter: 06/14/17 - Discharge Diagnosis (1) Atrial fibrillation with rapid ventricular response Status: Acute (2) Chest pain Status: Acute Qualifiers: Chest pain type: chest pain due to myocardial ischemia Ischemic chest pain type: unspecified angina pectoris type Qualified Code(s): I25.9 - Chronic ischemic heart disease, unspecified (3) COPD (chronic obstructive pulmonary disease) Status: Chronic Qualifiers: COPD type: unspecified COPD Qualified Code(s): J44.9 - Chronic obstructive pulmonary disease, unspecified (4) Abnormal TSH Status: Acute (5) Hypertension Status: Acute Qualifiers: Hypertension type: essential hypertension Qualified Code(s): I10 - Essential (primary) hypertension Hospital course: Ms. Perez is a 66 year old female - Time Spent with Patient Total time spent providing and/or coordinating discharge services: - Discharge Medications Prescriptions: Clopidogrel [Plavix] 75 mg PO DAILY #30 tablet Sotalol [Betapace] 40 mg PO Q12H #15 tablet Home Medications: Albuterol Sulfate [Albuterol Inhaler] 2 puff IH Q6HR 11/15/14 [History] Atorvastatin [Lipitor] 40 mg PO QPM 11/15/14 [History] Gabapentin [Neurontin] 600 mg PO BID 11/15/14 [History] Montelukast [Singulair] 10 mg PO DAILY PRN 11/15/14 [History] Omeprazole [PriLOSEC] 20 mg PO DAILY 11/15/14 [History] Aspirin 81 mg PO DAILY 30 Days tab.chew 11/17/14 [Rx] Rivaroxaban [Xarelto] 20 mg PO 1700 30 Days tablet 11/17/14 [Rx] Budesonide/Formoterol 160/4.5 [Symbicort 160/4.5] 2 puff IH BIDR 06/08/17 [ History] Ferrous Sulfate 325 mg PO DAILY 06/08/17 [History] Risedronate Sodium [Actonel] 35 mg PO MO 06/08/17 [History] Tramadol HCl [Ultram] 50 mg PO Q8H PRN 06/08/17 [History] predniSONE [PredniSONE] 10 mg PO DAILY 06/08/17 [History] Clopidogrel [Plavix] 75 mg PO DAILY #30 tablet 06/14/17 [Rx] Sotalol [Betapace] 40 mg PO Q12H #15 tablet 06/14/17 [Rx] Allergies/Adverse Reactions: 3 Allergy/AdvReac Type Severity Reaction Status Date / Time codeine AdvReac See Verified 11/15/14 14:30 Comments Date of admission: 06/09/17 10:59 Primary care physician: Dennys Mckeon, Consults: 06/11/17 14:03 Consult to Cardiac Rehabilitation-Phase1 [CONS] Routine Comment: Reason for Consult: AMI Call Completed: Yes Consult to Nurse Navigator [CONS] Routine Comment: 06/12/17 11:47 Consult to Electrophysiology (EP) [CONS] Routine Consulting Provider: Electrophysiology [place] Reason for Consult: a.fib RVR Call Completed: Yes - Constitutional Vitals: Temp Pulse Resp BP Pulse Ox 98.2 F 58 16 145/61 96 06/14/17 11:25 06/14/17 11:25 06/14/17 11:25 06/14/17 11:25 06/14/17 11:25 - Patient Status Disposition: Home, Self-Care Condition: Good - Discharge Instructions Instructions: Sotalol (By mouth), Clopidogrel (By mouth), Atrial Fibrillation ( DC) Follow Up With: Dennys Mckeon DO [Primary Care Provider] - 06/21/17 9:30 am Lila Cunningham MD [Partnered Physician] - 07/04/17 1:15 pm - Attending Attestation I examined this patient and my medical decision-making was reviewed with the Resident Physician. I agree with the documented findings, disposition and treatment plan as described except to the extent set forth below. 66 F with CAD s/p PCI S[facility], Afib on xarelto, Anxiety, NSVTs, steroids dependent COPD. She was started on sotalol by EPS cardio 06/12, she has received 5 doses of 40 mg without any adverse effects. QRS is within normal limits by EKG. She has no new complains Physical exam: VSS, not in distress, AAOX3, Chest is CTAB, HS S1, S2 sinus, abdomen is benign, no pedal edema. Labs and Imaging reviewed-leukcytosis possibly due to steroids Plan is to discharge home on current medications as recommended by cardiology Rest of details is as in resident physician's documentation <Jonathan Nolasco - Last Filed: 06/14/17 16:33> Orders not resulted at time of discharge: Pending orders 06/14/17 16:00 EKG [ECG 12 lead ECG] [ECG] Routine Date of Encounter: 06/14/17 Time of Encounter: 14:00 - Discharge Diagnosis (1) Atrial fibrillation with rapid ventricular response Priority: Primary Status: Acute (2) Chest pain Priority: Primary Status: Acute Qualifiers: Chest pain type: chest pain due to myocardial ischemia Ischemic chest pain type: unspecified angina pectoris type Qualified Code(s): I25.9 - Chronic ischemic heart disease, unspecified (3) COPD (chronic obstructive pulmonary disease) Priority: Secondary Status: Chronic Qualifiers: COPD type: unspecified COPD Qualified Code(s): J44.9 - Chronic obstructive pulmonary disease, unspecified (4) Abnormal TSH Priority: Secondary Status: Acute (5) Hypertension Priority: Secondary Status: Acute Qualifiers: Hypertension type: essential hypertension Qualified Code(s): I10 - Essential (primary) hypertension Hospital course: Ms. Perez is a 66 year old female with a PMH of CAD status post CABG, A. fib on Xarelto and beta katina, COPD on maintenance prednisone who was sent to ER by her tank tester Dr. Serna for further workup due to abnormal Holter monitor tracings A-fib with RVR and non-sustatined V. tach. Patient had intermittent chest pain with palpitations for the last 2 weeks. Outpatient echocardiogram revealed LVEF 60-65% and atypical septal motion consistent with post-operative status. In the ER, patient slight prolonged QT interval and diffuse ST depressions. Initial troponin was elevated at 0.23 but patient denied active chest pain. Cardiology performed PCI with PTCA and UMM to the [facility] on 06/11/17. She was started on Sotalol, DAPT, atorvastatin and nitroglycerin. Stop low dose Toprol. Discharge discussed with: patient - Time Spent with Patient Total time spent providing and/or coordinating discharge services: Greater than 30 minutes Date of admission: 06/09/17 10:59 Primary care physician: Dennys Mckeon, Consults: 06/11/17 14:03 Consult to Cardiac Rehabilitation-Phase1 [CONS] Routine Comment: Reason for Consult: AMI Call Completed: Yes Consult to Nurse Navigator [CONS] Routine Comment: 06/12/17 11:47 Consult to Electrophysiology (EP) [CONS] Routine Consulting Provider: Electrophysiology [place] Reason for Consult: a.fib RVR Call Completed: Yes Discharging clinician: Jonathan Nolasco Anticipated date of discharge: 06/14/17 - Constitutional Vitals: Temp Pulse Resp BP Pulse Ox 98.2 F 58 16 145/61 96 06/14/17 11:25 06/14/17 11:25 06/14/17 11:25 06/14/17 11:25 06/14/17 11:25 General appearance: Present: A&O X 3 - Head Head exam: Present: atraumatic, normocephalic - Eye Eye exam: Present: normal appearance, conjuntiva pink, sclera anicteric - Neck Neck exam general surgery: Present: supple, trachea midline. Absent: lymphadenopathy - Respiratory Respiratory exam: Present: CTAB. Absent: accessory muscle use, rales, rhonchi, wheezes - Cardiovascular Cardiovascular exam: Present: RRR, +S1, +S2. Absent: diastolic murmur, gallop, rubs, systolic murmur - GI/Abdominal GI/Abdominal exam: Present: normal bowel sounds, soft, no peritoneal signs. Absent: distended, tenderness - Extremities Exam Extremities exam: Present: warm, radial pulses palpable and symmetrical. Absent : calf tenderness, cyanotic, pedal edema - Neurological Exam Neurological exam: Present: CN II-XII intact, oriented X3, no focal deficits. Absent: pronater drift, facial droop, speech deficit - Skin Skin exam: Present: dry, intact - Patient Status Functional capacity at discharge: independent ambulation Overall status at discharge: patient is back to baseline - Diet and Activity Activity: resume usual activities as tolerated Diet: advance to your usual diet - VTE Documentation of Mechanical Device: Intermittent pneumatic compression device
--- NOTE | 2017-06-14 16:17 | Electrocardiograph Report ---
[place] [id number] Test Date: 2017-06-14 Pat Name: Nery Perez Department: 111 Room: 2NE21 Gender: F Mounter Sousaphones: GIACOMO : 1950 Requested By: Cj Ramos Order Number: [id number] Reading MD: Elyse Cowan Measurements Intervals [place] Rate: 53 P: 70 MN: 138 QRS: -37 QRSD: 103 T: -30 QT: 470 QTc: 452 Interpretive Statements SINUS BRADYCARDIA LEFT AXIS DEVIATION MODERATE VOLTAGE CRITERIA FOR LVH, CONSIDER NORMAL VARIANT ST-T ABNORMALITIES, CONSIDER INFERIOR ISCHEMIA Electronically Signed On 06-14-2017 16:15:22 EDT by Elyse Cowan
--- NOTE | 2017-06-15 09:01 | Electrocardiograph Report ---
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
== END 2017-06-14 16:47 | disposition home or self-care (01) | DRG 247 ==
LOC: 2NENU 17:26 → EMEROO 17:26 → 2NENU 21:18 → SUATTDRO 06-09 10:59
PROVIDERS: ADMIT Internal Medicine; ATTEND Internal Medicine

== ENCOUNTER 2017-09-23 13:00 | Inpatient (IN) ==
--- NOTE | 2017-09-23 13:22 | Emergency Department Note ---
Disposition Clinical Impression: Acute exacerbation of chronic obstructive airways disease, CAP (community acquired pneumonia) Disposition: Admitted As Inpatient Condition: Fair Referrals: Dennys Mckeon DO [Primary Care Provider] - Forms: ED Satisfaction Letter Time of Disposition: 16:48 SOB HPI - General Chief Complaint: ED Shortness of Breath/Dyspnea Stated Complaint: ROSIE Time Seen by Provider: 09/23/17 13:20 Source: patient Limitations: no limitations Nursing Notes Reviewed: Yes Vital Signs Reviewed: Yes - History of Present Illness 67yo female presents from home for evaluation of dyspnea and cough. Onset 3 days ago. Cough productive with yellow sputum. Dyspnea progressive since that she is having substantial difficulty breathing this morning. One week ago, she finished a prescription of azithromycin. Just prior to this, she finished a prescription of amoxicillin. Both of which were for URI/bronchitis. Patient does have a history of pneumonia following bronchitis. She notes her symptoms today are reminiscent of prior bouts of pneumonia. Patient does have a history of COPD however does not use any home oxygen. Her home breathing treatments have not improved her symptoms. She has a cardiac history of remote CABG with stent placed in May of this year; on aspirin, Plavix, and Xarelto. Otherwise history of hypertension and hyperlipidemia. No history of diabetes. Cardiac Risk factors: CABG, CAD, COPD, A-fib, Asthma, Hypertension, Dyslipidemia , Peripheral Vascular Disease, Chronic Lung Disease - Related Data Home Medications Medication Instructions Recorded Confirmed Albuterol Sulfate [Albuterol 2 puff IH Q6HR 11/15/14 09/23/17 Inhaler] Atorvastatin [Lipitor] 40 mg PO QPM 11/15/14 09/23/17 Gabapentin [Neurontin] 600 mg PO BID 11/15/14 09/23/17 Montelukast [Singulair] 10 mg PO DAILY PRN 11/15/14 09/23/17 Omeprazole [PriLOSEC] 20 mg PO DAILY 11/15/14 09/23/17 Budesonide/Formoterol 160/4.5 2 puff IH BIDR 06/08/17 09/23/17 [Symbicort 160/4.5] Ferrous Sulfate 325 mg PO DAILY 06/08/17 09/23/17 Risedronate Sodium [Actonel] 35 mg PO MO 06/08/17 09/23/17 Tramadol HCl [Ultram] 50 mg PO Q8H PRN 06/08/17 09/23/17 Ipratropium/Albuterol Neb [Duoneb] 3 ml IH Q6HR PRN 09/23/17 09/23/17 Previous Rx's Medication Instructions Recorded Aspirin 81 mg PO DAILY 30 Days tab.chew 11/17/14 Rivaroxaban [Xarelto] 20 mg PO 1700 30 Days tablet 11/17/14 Clopidogrel [Plavix] 75 mg PO DAILY #30 tablet 06/14/17 Sotalol [Betapace] 40 mg PO Q12H #15 tablet 06/14/17 Allergies Allergy/AdvReac Type Severity Reaction Status Date / Time codeine AdvReac See Verified 09/23/17 13:09 Comments Review of Systems: ROS: Positive: Per history of present illness Negative: Chest pain, palpitations, unusual back pain, diaphoresis, numbness, tingling, lightheadedness, abdominal pain, cost patient, diarrhea, dysuria All systems ED: reviewed and negative except as stated. Past Medical History - Past Medical History Medical history: Reports: asthma, atrial fibrillation, COPD, coronary artery disease, GERD, hyperlipidemia, hypertension Surgical history: Reports: carotid endarterectomy, cholecystectomy, coronary bypass (CABG), hysterectomy Psychiatric history: Reports: no psych history - Social History Smoking Status: Current every day smoker Smokeless Tobacco Status: No Alcohol use: Reports: none Drug use: Reports: none Physical Exam Vital Signs Reviewed General: Patient is alert, oriented, and in mild respiratory distress: Biotics history muscle usage, 3-4 conversational dyspnea, requiring supplemental oxygen to maintain saturations in the mid 90s. She appears frail. Head: atraumatic, normocephalic Eye: normal appearance, no scleral icterus, no conjunctival injection ENT: mucous membranes moist, normal external ear exam Neck: normal inspection, trachea midline, full ROM Chest: normal inspection, symmetric chest rise Respiratory: Good respiratory effort. Prolonged respiratory phase. Breath sounds diminished in the right lower posterior mitchell. Right upper mitchell and left side mitchell have rhonchi with scattered faint wheeze. Cardiovascular: Regular rate and rhythm. No clicks, rubs, gallops, or murmors. Normal heart sounds. Abdomen: Bowel sounds present normoactive. Abdomen is soft, nondistended, and nontender. No guarding or rebound. No organomegaly noted. Musculoskeletal: Spontaneously moving all extremities. Skin: warm, dry, intact. Neuro: Alert and oriented x4. Sensation light touch intact. Psych: Patient's affect is appropriate for situation. - General Limitations: no limitations General appearance: alert, in no apparent distress Course Course Narrative: Clinical concern is for pneumonia versus acute exacerbation of COPD. Chart check shows cardiac catheter 06/10/17. Indication of in STEMI. Impressions: Severe two-vessel CAD. UMM placed in proximal RCA. Status post CABG with one of 2 bypass grafts patent. Clinically, patient's presentation is concerning for pneumonia. Chest x-ray shows no definitive acute pulmonary disease. Patient slightly improved after triple dose of DuoNeb's. She continues to require submental oxygen. Provided solumedrol and ceftriaxone. I discussed the patient with the admitting hospitalist who agrees to admit the patient for community-acquired pneumonia. Patient does have elevated troponin however, this is her baseline and she has no chest pain and no ischemic changes on EKG. EKG dated 09/23/17 at 14:00 [place] as sinus rhythm with rate of 77. Nonspecific ST-T changes. No acute ischemic changes. Chest X-Ray 09/23/17 13:33 IMPRESSION: 1. No definite acute pulmonary disease. 2. Calcific atherosclerotic disease aorta. 3. Previous open-heart surgery. 4. Sequela from old granulomatous disease. D/ / James Amos / James Amos Interpreting Provider: James Amos Vital Signs Temperature 98.5 F 09/23/17 13:09 Pulse Rate 85 09/23/17 13:09 Respiratory Rate 24 09/23/17 13:09 Blood Pressure 160/71 09/23/17 13:09 O2 Sat by Pulse Oximetry 95 09/23/17 13:09 Temperature 98.5 F 09/23/17 13:14 Pulse Rate 72 09/23/17 14:59 Respiratory Rate 20 09/23/17 14:59 Blood Pressure 129/60 09/23/17 14:59 O2 Sat by Pulse Oximetry 96 09/23/17 14:59 Oxygen Delivery Oxygen Delivery Nasal Cannula Shortness of Breath/Dyspnea - Lab Data Result diagrams: 09/23/17 13:57 09/23/17 13:57 Lab Results 09/23/17 09/23/17 Range/Units 13:57 13:57 WBC 11.8 H (4.3-11.1) K/mcL RBC 3.95 (3.82-4.97) M/mcL Hgb 11.1 L (11.5-15.4) g/dL Hct 34.0 L (35.3-44.9) % MCV 86.1 (83.0-100.0) fL MCH 28.1 (28.0-33.3) pg MCHC 32.6 (31.6-35.5) g/dL RDW 14.0 (11.5-14.5) % Plt Count 348 (140-400) K/mcL MPV 10.4 (9.4-12.4) fL Immature Gran % 0.3 (0-4) % Seg Neutrophils % 72.7 % Lymphocytes % 12.6 % Monocytes % 7.5 % Eosinophils % 6.3 % Basophils % 0.6 % Neutrophils # 8.6 (1.6-8.9) K/mcL Lymphocytes # 1.5 (0.6-4.6) K/mcL Monocytes # 0.9 (0.0-1.3) K/mcL Eosinophils # 0.7 H (0.0-0.6) K/mcL Basophils # 0.1 (0.0-0.2) K/mcL Sodium 134 L (136-145) mEq/L Potassium 3.8 (3.5-5.1) mEq/L Chloride 100 (98-107) mEq/L Carbon Dioxide 27 (23-29) mEq/L BUN 5 L (8-23) mg/dL Creatinine 0.84 (0.60-1.20) mg/dL Est GFR ( Amer) > 60 (> 60) Est GFR (Non-Af Amer) > 60 (> 60) BUN/Creatinine Ratio 6 (6-26) Glucose 97 (70-105) mg/dL Calculated Osmolality 275 L (280-300) Calcium 9.6 (8.6-10.3) mg/dL Troponin I 0.26 H* (< 0.04) ng/mL
[2017-09-23] MEDS ORDERED: Ipratropium/Albuterol Neb 3 ML IH ONE (13:34)
[2017-09-23] MEDS ORDERED: methylPREDNISolone 125 MG in 0.9 % Sodium Chloride 100 ML IVPB ONE (13:34)
--- NOTE | 2017-09-23 13:41 | Emergency Department Note ---
Disposition Clinical Impression: Acute exacerbation of chronic obstructive airways disease, CAP (community acquired pneumonia) Disposition: Admitted As Inpatient Condition: Fair General Adult HPI - General Chief complaint: ED Shortness of Breath/Dyspnea Stated complaint: ROSIE Time Seen by Provider: 09/23/17 13:20 Source: patient Limitations: no limitations - History of Present Illness Pain Scale: 0 - Related Data Home Medications Medication Instructions Recorded Confirmed Albuterol Sulfate [Albuterol 2 puff IH Q6HR 11/15/14 09/23/17 Inhaler] Atorvastatin [Lipitor] 40 mg PO QPM 11/15/14 09/23/17 Gabapentin [Neurontin] 600 mg PO BID 11/15/14 09/23/17 Montelukast [Singulair] 10 mg PO DAILY PRN 11/15/14 09/23/17 Omeprazole [PriLOSEC] 20 mg PO DAILY 11/15/14 09/23/17 Budesonide/Formoterol 160/4.5 2 puff IH BIDR 06/08/17 09/23/17 [Symbicort 160/4.5] Ferrous Sulfate 325 mg PO DAILY 06/08/17 09/23/17 Risedronate Sodium [Actonel] 35 mg PO MO 06/08/17 09/23/17 Tramadol HCl [Ultram] 50 mg PO Q8H PRN 06/08/17 09/23/17 Ipratropium/Albuterol Neb [Duoneb] 3 ml IH Q6HR PRN 09/23/17 09/23/17 Previous Rx's Medication Instructions Recorded Aspirin 81 mg PO DAILY 30 Days tab.chew 11/17/14 Rivaroxaban [Xarelto] 20 mg PO 1700 30 Days tablet 11/17/14 Clopidogrel [Plavix] 75 mg PO DAILY #30 tablet 06/14/17 Sotalol [Betapace] 40 mg PO Q12H #15 tablet 06/14/17 Allergies Allergy/AdvReac Type Severity Reaction Status Date / Time codeine AdvReac See Verified 09/23/17 13:09 Comments Past Medical History - Past Medical History Medical history: Reports: asthma, atrial fibrillation, COPD, coronary artery disease, GERD, hyperlipidemia, hypertension Surgical history: Reports: carotid endarterectomy, cholecystectomy, coronary bypass (CABG), hysterectomy Psychiatric history: Reports: no psych history - Social History Smoking Status: Current every day smoker Smokeless Tobacco Status: No Alcohol use: Reports: none Drug use: Reports: none Physical Exam - General Limitations: no limitations General appearance: alert, in no apparent distress Course Vital Signs Temperature 98.5 F 09/23/17 13:09 Pulse Rate 85 09/23/17 13:09 Respiratory Rate 24 09/23/17 13:09 Blood Pressure 160/71 09/23/17 13:09 O2 Sat by Pulse Oximetry 95 09/23/17 13:09 Temperature 99.5 F 09/23/17 18:06 Pulse Rate 87 09/23/17 18:06 Respiratory Rate 22 09/23/17 18:06 Blood Pressure 147/65 09/23/17 18:06 O2 Sat by Pulse Oximetry 92 09/23/17 18:06 Oxygen Delivery Oxygen Delivery Non Rebreather Mask Medical Decision Making - Lab Data Result diagrams: 09/23/17 13:57 09/23/17 13:57 Lab Results 09/23/17 09/23/17 09/23/17 Range/Units 13:57 13:57 17:15 WBC 11.8 H (4.3-11.1) K/mcL RBC 3.95 (3.82-4.97) M/mcL Hgb 11.1 L (11.5-15.4) g/dL Hct 34.0 L (35.3-44.9) % MCV 86.1 (83.0-100.0) fL MCH 28.1 (28.0-33.3) pg MCHC 32.6 (31.6-35.5) g/dL RDW 14.0 (11.5-14.5) % Plt Count 348 (140-400) K/mcL MPV 10.4 (9.4-12.4) fL Immature Gran % 0.3 (0-4) % Seg Neutrophils % 72.7 % Lymphocytes % 12.6 % Monocytes % 7.5 % Eosinophils % 6.3 % Basophils % 0.6 % Neutrophils # 8.6 (1.6-8.9) K/mcL Lymphocytes # 1.5 (0.6-4.6) K/mcL Monocytes # 0.9 (0.0-1.3) K/mcL Eosinophils # 0.7 H (0.0-0.6) K/mcL Basophils # 0.1 (0.0-0.2) K/mcL Sodium 134 L (136-145) mEq/L Potassium 3.8 (3.5-5.1) mEq/L Chloride 100 (98-107) mEq/L Carbon Dioxide 27 (23-29) mEq/L BUN 5 L (8-23) mg/dL Creatinine 0.84 (0.60-1.20) mg/dL Est GFR ( Amer) > 60 (> 60) Est GFR (Non-Af Amer) > 60 (> 60) BUN/Creatinine Ratio 6 (6-26) Glucose 97 (70-105) mg/dL Calculated Osmolality 275 L (280-300) Calcium 9.6 (8.6-10.3) mg/dL Troponin I 0.26 H* 0.27 H* (< 0.04) ng/mL Critical Care Time Critical Care Time: Yes Total Critical Care Time: 35 Attestation: Critical care performed: Time is exclusive of separately billable procedures. Time includes: direct patient care, patient reassessment, coordination of patient care, interpretation of data (laboratory data, radiology data, and respiratory data), review of patient's medical records, medical consultation and documentation of patient care. Procedures included in critical care time: Procedures excluded from critical care time: Attestation Statement - Attestation Attestation: I examined this patient and my medical decision-making was reviewed with the Resident Physician. I agree with the documented findings, disposition and treatment plan as described except to the extent set forth below. Patient ED, shortness of breath. Patient has a history of COPD and coronary artery disease. States she has had a cough productive of thick phlegm. She seen Dr. Hipolito muir. She is also under the care of Dr. Hernandez. She has been on 2 antibiotics of amoxicillin and azithromycin recently with no improvement. On examination she is visibly dyspneic. Conversational dyspnea 3-4 words. Lungs with decreased air exchange and expiratory wheezing. Plan. Cardiac workup. Nebs and steroids. Patient was COPD exacerbation. No infiltrate on chest x-ray. Troponin elevated , but is chronically elevated. We did discuss with cardiology who will see in consultation. Aspirin given. We will start antibiotics for sputum change.
[2017-09-23] MEDS ORDERED: methylPREDNISolone 125 MG/2 ML VIAL IVP ONE (13:56)
[2017-09-23 14:38] LABS: Basophils # 0.1 K/mcL (0.0-0.2); Basophils % 0.6 %; Eosinophils # 0.7 K/mcL (0.0-0.6); Eosinophils % 6.3 %; Hemoglobin 11.1 g/dL (11.5-15.4); Immature Granulocytes % 0.3 % (0-4); Lymphocytes # 1.5 K/mcL (0.6-4.6); Lymphocytes % 12.6 %; Mean Corpuscular HGB Conc 32.6 g/dL (31.6-35.5); Mean Corpuscular Hemoglobin 28.1 pg (28.0-33.3); Mean Corpuscular Volume 86.1 fL (83.0-100.0); Mean Platelet Volume 10.4 fL (9.4-12.4); Monocytes # 0.9 K/mcL (0.0-1.3); Monocytes % 7.5 %; Neutrophils # 8.6 K/mcL (1.6-8.9); Platelet Count 348 K/mcL (140-400); Red Blood Count 3.95 M/mcL (3.82-4.97); Segmented Neutrophils % 72.7 %
[2017-09-23 14:53] LABS: BUN/Creatinine Ratio 6 (6-26); Blood Urea Nitrogen 5 mg/dL (8-23); Calcium 9.6 mg/dL (8.6-10.3); Carbon Dioxide 27 mEq/L (23-29); Chloride 100 mEq/L (98-107); Glucose 97 mg/dL (70-105); Osmolality,Calculated 275 (280-300); Potassium 3.8 mEq/L (3.5-5.1); Sodium 134 mEq/L (136-145); eGFR For Non-African Americans > 60 (> 60)
[2017-09-23 15:39] LABS: Troponin I 0.26 ng/mL (< 0.04)
[2017-09-23] MEDS ORDERED: cefTRIAXone 2,000 MG in Water for inj. (sterile) 20 ML 20 ML IVP ONE (15:50)
[2017-09-23] MEDS ORDERED: Acetaminophen 325 MG TABLET PO PRN (17:00)
[2017-09-23] MEDS ORDERED: Naloxone 0.4 MG/ML INJ IVP PRN (17:00)
[2017-09-23] MEDS ORDERED: traMADol 50 MG TABLET PO PRN (17:03)
--- NOTE | 2017-09-23 17:08 | Internal Med History&Physical ---
Date of Encounter: 09/23/17 Time of Encounter: 17:05 Internal Medicine - H&P: HPI Chief complaint: Chest congestion Admitted From: Emergency Dept Plans for Post Hospital Care: Home History of present illness: Ms. Perez is a 67 year old female with history of COPD, CAD status post recent stents and remote CABG, atrial fibrillation, who presents with complaint of significant chest congestion and tightness associated with shortness of breath for the last 4 days. Patient has been having upper respiratory tract symptoms for the Last several days, presented to her PCP and completed a course of azithromycin and then amoxicillin with no relief in symptoms. She also completed a 5 day oral steroid course. Her symptoms are not relieved with home nebulizer treatments. Does not report associated chest pain, palpitations, fever/chills. She does have some wheezing and dry cough, unable to bring up any sputum although she feels that her edema is a full of mucus. She does not use home oxygen, does have inhalers and nebulizer at home. She recently quit smoking about a month and a half ago, has been a chronic heavy smoker before that. Past Med Surg Social Fam HX - Past Medical History Source: patient, old records reviewed Medical history: atrial fibrillation, COPD, coronary artery disease, GERD, hyperlipidemia, hypertension Additional medical history: PVD. carotid stenosis Psychiatric history: no psych history - Past Surgical History Surgical History: carotid endarterectomy, cholecystectomy, coronary bypass (CABG ), hysterectomy Additional surgical history: Left carotid endarterectomy - Social History Smoking Status: Former smoker (quit recently 1.5months ago) Smokeless Tobacco Status: No Alcohol use: none Drug use: none Occupational status: employed Current living situation: Home - Independent Activity Level: Independent ambulation Recent Out of Country Travel Within the Last 8 Weeks: No Exposure or Possible Exposure to Illness During Travel: No - Family History Mother Hx Family Cancer: Yes (nasal cavity lymphoma) Father Hx Family Cancer: Yes (leukemia) Internal Medicine - H&P: Meds Albuterol Sulfate [Albuterol Inhaler] 2 puff IH Q6HR 11/15/14 [History] Atorvastatin [Lipitor] 40 mg PO QPM 11/15/14 [History] Gabapentin [Neurontin] 600 mg PO BID 11/15/14 [History] Montelukast [Singulair] 10 mg PO DAILY PRN 10/04/15 [History] Omeprazole [PriLOSEC] 20 mg PO DAILY 11/15/14 [History] Aspirin 81 mg PO DAILY 30 Days tab.chew 11/17/14 [Rx] Rivaroxaban [Xarelto] 20 mg PO 1700 30 Days tablet 11/17/14 [Rx] Budesonide/Formoterol 160/4.5 [Symbicort 160/4.5] 2 puff IH BIDR 06/08/17 [ History] Ferrous Sulfate 325 mg PO DAILY 06/08/17 [History] Risedronate Sodium [Actonel] 35 mg PO MO 06/08/17 [History] Tramadol HCl [Ultram] 50 mg PO Q8H PRN 06/08/17 [History] Clopidogrel [Plavix] 75 mg PO DAILY #30 tablet 06/14/17 [Rx] Sotalol [Betapace] 40 mg PO Q12H #15 tablet 06/14/17 [Rx] Ipratropium/Albuterol Neb [Duoneb] 3 ml IH Q6HR PRN 09/23/17 [History] 3 Allergy/AdvReac Type Severity Reaction Status Date / Time codeine AdvReac See Verified 09/23/17 13:09 Comments All Systems PM: A 10-system review of systems was performed and is negative for pertinent findings except as documented above in the HPI. - Constitutional Constitutional: no chills, no fever(s), no night sweats - EENT Eyes: no change in vision, no discharge, no pain, no photophobia Ears: no ear discharge, no ear pain, no tinnitus Nose, mouth and throat: no dysphagia, no nasal discharge, no neck pain, no sore throat - Cardiovascular Cardiovascular ROS IM: no chest pain, no diaphoresis, no dyspnea, no lightheadedness, no palpitations, no syncope - Respiratory Respiratory: cough, dyspnea, dyspnea on exertion, wheezing, chest congestion - Gastrointestinal Gastrointestinal: no abdominal pain, no diarrhea, no hematemesis, no hematochezia, no melena, no nausea, no vomiting - Genitourinary Genitourinary: no change in urinary stream, no dysuria, no flank pain, no hematuria - Musculoskeletal Musculoskeletal ROS IM: no numbness, no tingling - Integumentary Integumentary IM: no rash, no unusual bruising - Neurological Neurological ROS: no confusion, no convulsions, no focal weakness, no numbness, no tingling, no tremor(s) - Hematologic/Lymphatic Hematologic/Lymphatic: no easy bruising - Constitutional Vitals: Temp Pulse Resp BP Pulse Ox 98.5 F 72 20 129/60 96 09/23/17 13:14 09/23/17 14:59 09/23/17 14:59 09/23/17 14:59 09/23/17 14:59 General appearance: Present: mild distress, A&O X 3, answers questions appropriately - Respiratory Respiratory exam: Present: CTAB (coarse breath sounds B/L), wheezes (scattered wheezing B/L). Absent: accessory muscle use, rales, rhonchi - Cardiovascular Cardiovascular exam: Present: RRR, +S1, +S2. Absent: diastolic murmur, gallop, rubs, systolic murmur - GI/Abdominal GI/Abdominal exam: Present: normal bowel sounds, soft, no peritoneal signs. Absent: distended, tenderness - Extremities Exam Extremities exam: Present: full ROM, warm, radial pulses palpable and symmetrical. Absent: calf tenderness, cyanotic, pedal edema - Neurological Exam Neurological exam: Present: CN II-XII intact, oriented X3, no focal deficits. Absent: pronater drift, facial droop, speech deficit - Skin Skin exam: Present: dry, intact Internal Med - H&P Results - Labs CBC & Chem 7: 09/23/17 13:57 09/23/17 13:57 - EKG Data -: EKG Interpreted by Myself EKG shows normal: sinus rhythm Rate: normal (Q waves in anteroseptal leads- old change) - Assessment and plan (1) Acute respiratory failure Current Visit: Yes Status: Acute Assessment and plan: Due to acute bronchitis and COPD. Continue supplemental oxygen, patient would require home oxygen evaluation prior to discharge. Qualifiers: Respiratory failure complication: hypoxia Qualified Code(s): J96.01 - Acute respiratory failure with hypoxia (2) Acute exacerbation of chronic obstructive airways disease Current Visit: Yes Status: Acute Assessment and plan: Chest x-ray reviewed independently-shows hyperexpanded lung mitchell, no focal infiltrates, previous sternotomy wires. Start IV steroids, empiric IV antibiotics-cefepime, scheduled bronchodilators, inhaled Mucomyst, supplemental oxygen and supportive care. Blood cultures were not sent prior to antibiotics, will send 2 sets now. Send sputum for Gram stain and culture when available. Check respiratory infection panel, urine Legionella and strep pneumoniae antigen. (3) Elevated troponin Current Visit: Yes Status: Acute Assessment and plan: Review of previous labs show chronic troponin elevation at around 0.25. Cycle troponins, continue telemetry monitoring. EKG shows no signs of acute ischemia. (4) Hypertension Current Visit: Yes Status: Chronic Assessment and plan: Blood pressure is acceptable. Not noted to be on antihypertensives at home, monitor closely and use when necessary IV hydralazine. Qualifiers: Hypertension type: essential hypertension Qualified Code(s): I10 - Essential (primary) hypertension (5) Atrial fibrillation Current Visit: Yes Status: Chronic Assessment and plan: Noted to be on sotalol and anticoagulation with Xarelto at home. Resume these. Telemetry monitoring. Qualifiers: Atrial fibrillation type: paroxysmal Qualified Code(s): I48.0 - Paroxysmal atrial fibrillation (6) CAD (coronary artery disease) Current Visit: Yes Status: Chronic Assessment and plan: History of remote CABG and recent stent placement in May 2017. Continue aspirin, Plavix, statin. Qualifiers: Coronary Disease-Associated Artery/Lesion type: bypass graft [place] vs. transplanted heart: [place] heart Associated angina: without angina Qualified Code(s): I25.810 - Atherosclerosis of coronary artery bypass graft(s) without angina pectoris - Time Spent With Patient Total time spent is greater than 50% in coordination of care (as documented) at patient's floor/unit and/or counseling patient:
[2017-09-23] MEDS: Ipratropium/Albuterol Neb 3 ML IH PRN ×2 (18:10→22:40)
[2017-09-23] MEDS: *HR* Rivaroxaban 10 MG TABLET PO SCH (18:33)
[2017-09-23] MEDS: Gabapentin 300 MG CAPSULE PO SCH (20:04)
[2017-09-23 22:06] LABS: Adenovirus Not Detected (Not Detect); Bordetella Pertussis Not Detected (Not Detect); Chlamydophila pneumoniae Not Detected (Not Detect); Coronavirus 229E Not Detected (Not Detect); Coronavirus HKU1 Not Detected (Not Detect); Coronavirus NL63 Not Detected (Not Detect); Coronavirus OC43 Not Detected (Not Detect); Human Metapneumovirus Not Detected (Not Detect); Human Rhinovirus/Enterovirus Not Detected (Not Detect); Influenza A Subtype 2009 H1 Not Detected (Not Detect); Influenza A Untypeable Not Detected (Not Detect); Influenza B Not Detected (Not Detect); Mycoplasma pneumoniae Not Detected (Not Detect); Parainfluenza Virus 1 Not Detected (Not Detect); Parainfluenza Virus 2 Not Detected (Not Detect); Parainfluenza Virus 3 Not Detected (Not Detect); Parainfluenza Virus 4 Not Detected (Not Detect); Respiratory Syncytial Virus Not Detected (Not Detect)
[2017-09-23] MEDS: Acetylcysteine 10% 2 ML INHSOL IH SCH (22:40)
[2017-09-23] MEDS: Budesonide/Formoterol 160/4.5 MDI IH SCH (22:40)
[2017-09-23] MEDS: Cefepime HCl 1,000 MG in 0.9 % Sodium Chloride Mini Bag 100 ML IVPB SCH (23:28)
[2017-09-23] MEDS: MethylPREDNISolone 40 MG/ML VIAL IVP SCH (23:28)
[2017-09-24] MEDS: Acetylcysteine 10% 2 ML INHSOL IH SCH ×3 (03:33→15:27)
[2017-09-24] MEDS: Ipratropium/Albuterol Neb 3 ML IH PRN ×4 (03:33→21:07)
[2017-09-24 06:22] LABS: Basophils % 0.1 %; Eosinophils % 0.1 %; Hematocrit 34.7 % (35.3-44.9); Hemoglobin 11.5 g/dL (11.5-15.4); Immature Granulocytes % 0.5 % (0-4); Lymphocytes # 0.9 K/mcL (0.6-4.6); Lymphocytes % 9.2 %; Mean Corpuscular HGB Conc 33.1 g/dL (31.6-35.5); Mean Corpuscular Hemoglobin 28.6 pg (28.0-33.3); Mean Corpuscular Volume 86.3 fL (83.0-100.0); Mean Platelet Volume 10.9 fL (9.4-12.4); Monocytes # 0.3 K/mcL (0.0-1.3); Monocytes % 2.6 %; Neutrophils # 8.8 K/mcL (1.6-8.9); Platelet Count 330 K/mcL (140-400); Red Blood Count 4.02 M/mcL (3.82-4.97); Red Cell Distribution Width 13.8 % (11.5-14.5); Segmented Neutrophils % 87.5 %
[2017-09-24 06:46] LABS: BUN/Creatinine Ratio 14 (6-26); Blood Urea Nitrogen 11 mg/dL (8-23); Calcium 8.9 mg/dL (8.6-10.3); Carbon Dioxide 23 mEq/L (23-29); Chloride 97 mEq/L (98-107); Glucose 169 mg/dL (70-105); Osmolality,Calculated 271 (280-300); Potassium 3.8 mEq/L (3.5-5.1); Sodium 129 mEq/L (136-145); eGFR For Non-African Americans > 60 (> 60)
[2017-09-24] MEDS ORDERED: traMADol 50 MG TABLET PO PRN (07:21)
[2017-09-24] MEDS: Budesonide/Formoterol 160/4.5 MDI IH SCH ×2 (09:57→21:07)
[2017-09-24] MEDS: MethylPREDNISolone 40 MG/ML VIAL IVP SCH ×2 (10:16→16:08)
[2017-09-24] MEDS: Cefepime HCl 1,000 MG in 0.9 % Sodium Chloride Mini Bag 100 ML IVPB SCH ×2 (10:17→16:06)
[2017-09-24] MEDS: Aspirin 81 MG TAB.CHEW PO SCH (10:17)
[2017-09-24] MEDS: Gabapentin 300 MG CAPSULE PO SCH ×2 (10:17→20:11)
[2017-09-24] MEDS: 0.9 % Sodium Chloride 1,000 ML IVC SCH (10:28)
[2017-09-24 11:12] LABS: ABG Base Excess 3 mEq/L (-2 to 3); ABG HCO3 27 mEq/L (21-27); ABG Oxygen Saturation 94 % (95-98); ABG PCO2 35 mmHg (35-45); ABG PH 7.48 pH Units (7.32-7.45); ABG PO2 64 mmHg (85-104); ABG TCO2 28 mEq/L (20-26)
--- NOTE | 2017-09-24 13:37 | Internal Med Progress Note ---
Hospitalist Progress Note - Encounter Date of Encounter: 09/24/17 Time of Encounter: 09:45 - Subjective Interval History: Continues to report significant orthopnea, has been sitting up throughout last night. Saturating well on 2 L/m nasal cannula oxygen. No fever, chills, chest pain. Mucomyst helps, able to bring up some phlegm. - Exam Vitals: Temp Pulse Resp BP Pulse Ox 98.9 F 76 17 158/62 94 09/24/17 11:25 09/24/17 11:25 09/24/17 11:25 09/24/17 11:25 09/24/17 11:25 Exam: General: Well-developed female sitting up in bed in mild distress Chest: B/L coarse breath sounds. scattered rhonchi B/L Heart: Normal S1 & S2; rhythmic. No rubs or murmurs. Abdomen: Non-distended, soft and nontender Extremities: No clubbing, cyanosis or edema. No calf tenderness. Normal distal pulses. Neurological: Awake, alert and oriented to person, place and time. No focal deficits. Psych: Affect appropriate. - Assessment and Plan (1) Acute respiratory failure Current Visit: Yes Status: Acute Assessment and Plan: Due to acute bronchitis and COPD. Continue supplemental oxygen, patient would require home oxygen evaluation prior to discharge. (2) Acute exacerbation of chronic obstructive airways disease Current Visit: Yes Status: Acute Assessment and Plan: Chest x-ray reviewed independently-shows hyperexpanded lung mitchell, no focal infiltrates, previous sternotomy wires. Continue IV steroids, empiric IV antibiotics-cefepime, scheduled bronchodilators , inhaled Mucomyst, supplemental oxygen and supportive care. Blood cultures, respiratory infection panel, urine Legionella and strep pneumoniae antigen negative. Sputum for Gram stain and culture was inadequate specimen. Ordered ABG due to patient's continued dyspnea- possible mild respiratory alkalosis with pH 7.48, PCO2 35, PO2 64. Check CT chest without contrast, we will consult pulmonology. (3) Elevated troponin Current Visit: Yes Status: Acute Assessment and Plan: Review of previous labs show chronic troponin elevation at around 0.25. Serial troponins noted to be decreasing. continue telemetry monitoring. (4) Hypertension Current Visit: Yes Status: Chronic (5) Atrial fibrillation Current Visit: Yes Status: Chronic Assessment and Plan: Noted to be on sotalol and anticoagulation with Xarelto at home. Continue. Telemetry monitoring. (6) CAD (coronary artery disease) Current Visit: Yes Status: Chronic Assessment and Plan: History of remote CABG and recent stent placement in May 2017. Continue aspirin, Plavix, statin. Echocardiogram in May shows preserved EF, mild LV diastolic dysfunction, no pulmonary hypertension. - Time Spent with Patient Total time spent is greater than 50% in coordination of care (as documented) at patient's floor/unit and/or counseling patient: Plan of Care Discussed with: patient Internal Medicine: Result - Labs CBC & Chem 7: 09/24/17 05:11 09/24/17 05:11 Labs: Short CBC 09/24/17 Range/Units 05:11 WBC 10.1 (4.3-11.1) K/mcL Hgb 11.5 (11.5-15.4) g/dL Hct 34.7 L (35.3-44.9) % Plt Count 330 (140-400) K/mcL Neutrophils # 8.8 (1.6-8.9) K/mcL BMP 09/24/17 05:11 Sodium 129 L Potassium 3.8 Chloride 97 L Carbon Dioxide 23 BUN 11 Creatinine 0.78 Glucose 169 H Calcium 8.9 Cardiac Enzymes 09/23/17 09/24/17 Range/Units 23:02 05:11 Troponin I 0.22 H* 0.13 H* (< 0.04) ng/mL - ABG Interpretation ABG results: ABG ABG pH 7.48 pH Units (7.32-7.45) H 09/24/17 11:05 ABG pCO2 35 mmHg (35-45) 09/24/17 11:05 ABG pO2 64 mmHg (85-104) L 09/24/17 11:05 ABG O2 Saturation 94 % (95-98) L 09/24/17 11:05 - VTE Documentation of Mechanical Device: Intermittent pneumatic compression device Consult Discharge Plan - Plan Referrals: Dennys Mckeon DO [Primary Care Provider] - (1) Acute respiratory failure Qualifiers: Respiratory failure complication: hypoxia Qualified Code(s): J96.01 - Acute respiratory failure with hypoxia (4) Hypertension Qualifiers: Hypertension type: essential hypertension Qualified Code(s): I10 - Essential (primary) hypertension (5) Atrial fibrillation Qualifiers: Atrial fibrillation type: paroxysmal Qualified Code(s): I48.0 - Paroxysmal atrial fibrillation (6) CAD (coronary artery disease) Qualifiers: Coronary Disease-Associated Artery/Lesion type: bypass graft [place] vs. transplanted heart: [place] heart Associated angina: without angina Qualified Code(s): I25.810 - Atherosclerosis of coronary artery bypass graft(s) without angina pectoris
--- NOTE | 2017-09-24 14:16 | Pulmonology Consult Note ---
<AmadouYamelAj C - Last Filed: 09/24/17 14:16> Date of Encounter: 09/24/17 Time of Encounter: 14:16 Assessment and Plan (1) Acute exacerbation of chronic obstructive airways disease Current Visit: Yes Status: Acute Patient with history of COPD and I believe a component of asthma (ACOS) who presented for COPD exacerbation Her history of repeated exacerbations leads me to believe that there is an element of asthma triggers at home that are complicating her treatment She is already on a regimen for COPD at home which is appropriate, however I think she would benefit from added asthma/sinusitis treatment Since she already failed an outpatient regimen of oral prednisone we will start her on a oral prednisone taper here Will start Flonase and sinus rinse for sinusitis symptoms as well as antihistamine and IgE level I have also asked the nurse to educate the patient on the use of a spacer for her Symbicort inhaler as well as education on avoiding environmental allergy triggers at home such as mowing the lawn 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 Once the patient is stable for discharge she will benefit from outpatient follow -up including a referral to pulmonary rehabilitation and evaluation with a 6 minute walk test to consider need for oxygen use at home Recommend stopping Mucomyst here due to limited indication for this patient patient did receive a chest CT here which was very useful in screening for lung cancer which patient is at risk for due to her smoking history Chest CT was not convincing for infectious etiology therefore we will consider de-escalating or stopping antibiotics Chest CT also showed some atelectasis and cystic changes, mostly centrilobular emphysema Incidentally on chest CT patient was found to have exophytic foci on the upper pole of the left kidney, in coordination with her recent history of outpatient hematuria symptoms this should be investigated inpatient before discharge Otherwise patient is on a reasonable treatment regimen for her COPD exacerbation , we will continue to follow and monitor Thank you for the consultation on this patient (2) Elevated troponin Current Visit: Yes Status: Acute Patient presented with elevated troponins at admission Patient has history of cardiac disease and intervention Will defer to primary team for management (3) Atrial fibrillation Current Visit: Yes Status: Chronic Patient with history of chronic A. fib managed outpatient Will defer to primary team for management Qualifiers: Atrial fibrillation type: paroxysmal Qualified Code(s): I48.0 - Paroxysmal atrial fibrillation (4) CAD (coronary artery disease) Current Visit: Yes Status: Chronic Patient with history of chronic coronary artery disease including intervention with stents most recently in May and a remote history of CABG We will defer to primary team for management Qualifiers: Coronary Disease-Associated Artery/Lesion type: bypass graft [place] vs. transplanted heart: [place] heart Associated angina: without angina Qualified Code(s): I25.810 - Atherosclerosis of coronary artery bypass graft(s) without angina pectoris History of Present Illness Consult date: 09/24/17 Requesting physician: Bhargavi Huynh Reason for consult: dyspnea, cough, COPD Chief complaint: Cough with Dyspnea History of present illness: Ms. Perez is a pleasant 67-year-old female with past medical history of COPD , coronary artery disease, with stent placement in May, CABG remotely, atrial fibrillation, carotid endarterectomy. She has a 74-[id number] smoking history but recently quit about a month ago. She also has a occupational exposure history to asbestos. She has a dog at home but no other smokers in the house. She also complains of environmental allergies worsened by mowing the lawn and other activities. She reports a history of repeated episodes of sinusitis and bronchitis that lead to COPD exacerbation and hospitalization. Most recently she had an episode of sinusitis and bronchitis that was treated by her primary care provider with a 5 day course of azithromycin, amoxicillin, oral prednisone. Her symptoms temporarily resolved but then worsened again and she presented to the hospital 2 days ago with symptoms of cough and dyspnea related to COPD exacerbation. She states that she has a pulse oximeter at home and at no point did she become hypoxic or short of breath. She was admitted to the hospital for acute respiratory failure secondary to bronchitis and COPD exacerbation and was given supplemental oxygen as well as bronchodilators and other supportive care. Past Med Surg Social Fam HX - Past Medical History Medical history: asthma, atrial fibrillation, COPD, coronary artery disease, GERD, hyperlipidemia, hypertension Additional medical history: PVD. carotid stenosis Psychiatric history: no psych history - Past Surgical History Surgical History: carotid endarterectomy, cholecystectomy, coronary bypass (CABG ), hysterectomy Additional surgical history: Left carotid endarterectomy - Social History Smoking Status: Current every day smoker Smokeless Tobacco Status: No Alcohol use: none Drug use: none - Family History Mother Hx Family Cancer: Yes Father Hx Family Cancer: Yes Medications and Allergies Albuterol Sulfate [Albuterol Inhaler] 2 puff IH Q6HR 11/15/14 [History] Atorvastatin [Lipitor] 40 mg PO QPM 11/15/14 [History] Gabapentin [Neurontin] 600 mg PO BID 11/15/14 [History] Montelukast [Singulair] 10 mg PO DAILY PRN 11/15/14 [History] Omeprazole [PriLOSEC] 20 mg PO DAILY 11/15/14 [History] Aspirin 81 mg PO DAILY 30 Days tab.chew 11/17/14 [Rx] Rivaroxaban [Xarelto] 20 mg PO 1700 30 Days tablet 11/17/14 [Rx] Budesonide/Formoterol 160/4.5 [Symbicort 160/4.5] 2 puff IH BIDR 06/08/17 [ History] Ferrous Sulfate 325 mg PO DAILY 06/08/17 [History] Risedronate Sodium [Actonel] 35 mg PO MO 06/08/17 [History] Tramadol HCl [Ultram] 50 mg PO Q8H PRN 06/08/17 [History] Clopidogrel [Plavix] 75 mg PO DAILY #30 tablet 06/14/17 [Rx] Sotalol [Betapace] 40 mg PO Q12H #15 tablet 06/14/17 [Rx] Ipratropium/Albuterol Neb [Duoneb] 3 ml IH Q6HR PRN 09/23/17 [History] 3 Allergy/AdvReac Type Severity Reaction Status Date / Time codeine AdvReac See Verified 09/23/17 13:09 Comments All Systems: The remainder of the systems were reviewed and are negative - Constitutional Constitutional: no chills, no fatigue, no fever(s), no headache(s) - EENT Nose, mouth and throat: no facial pain, no nasal congestion, no nasal discharge , no sinus pain, no sinus pressure - Cardiovascular Cardiovascular: no chest pain, no orthopnea, no palpitations - Respiratory Respiratory: cough, dyspnea, snoring, chest congestion, excessive phlegm production, no hemoptysis, no dyspnea on exertion, no pain on inspirtation - Gastrointestinal Gastrointestinal: no abdominal pain, no nausea, no vomiting - Neurological Neurological: no abnormal speech, no behavioral changes, no confusion, no focal weakness - Endocrine Endocrine: no excessive sweating, no fatigue - Allergic/Immunologic Allergic/Immunologic: no uticaria Physical Examination Vital Signs: Vital Signs, Last 4 Hours Temp Pulse Resp BP Pulse Ox 09/24/17 11:25 98.9 F 76 17 158/62 94 09/24/17 10:48 95 Patient in no acute distress, alert and oriented 3 Patient is saturating and ventilating appropriately on 2 L nasal cannula. Heart sounds distant, but in regular rate and rhythm, no murmur or gallop, normal S1 and S2 Lungs sounds are diminished diffusely, upper airway sounds auscultated in upper lung mitchell, no wheeze or rales, no rhonchi Abdomen soft and nontender Legs nonedematous No skin changes or lesions Neck supple without JVD Results - Laboratory Findings CBC and BMP: 09/24/17 05:11 09/24/17 05:11 ABG ABG pH 7.48 pH Units (7.32-7.45) H 09/24/17 11:05 ABG pCO2 35 mmHg (35-45) 09/24/17 11:05 ABG pO2 64 mmHg (85-104) L 09/24/17 11:05 ABG O2 Saturation 94 % (95-98) L 09/24/17 11:05 Abnormal lab findings: Abnormal lab results Hct 34.7 % (35.3-44.9) L 09/24/17 05:11 ABG pH 7.48 pH Units (7.32-7.45) H 09/24/17 11:05 ABG pO2 64 mmHg (85-104) L 09/24/17 11:05 ABG Total CO2 28 mEq/L (20-26) H 09/24/17 11:05 ABG O2 Saturation 94 % (95-98) L 09/24/17 11:05 Sodium 129 mEq/L (136-145) L 09/24/17 05:11 Chloride 97 mEq/L (98-107) L 09/24/17 05:11 Glucose 169 mg/dL (70-105) H 09/24/17 05:11 Calculated Osmolality 271 (280-300) L 09/24/17 05:11 Troponin I 0.13 ng/mL (< 0.04) H* 09/24/17 05:11 - Microbiology Findings Microbiology Findings: Microbiology, Last 48 Hours 09/23/17 21:40 Legionella Antigen - Final Urine,Clean Catch Streptococcus pneumoniae Antigen (M - Final 09/23/17 20:30 Sputum Culture - Final Sputum - Clinical Findings Intake & Output: Intake & Output 09/23/17 09/24/17 09/24/17 23:59 07:59 15:59 Intake Total 100 / 100 Balance 100 / 100 Weight 58.173 kg Consult Discharge Plan - Plan Referrals: Dennys Mckeon DO [Primary Care Provider] - <Jose Manuel Best - Last Filed: 09/24/17 16:18> Date of Encounter: 09/24/17 All Systems: The remainder of the systems were reviewed and are negative Physical Examination Vital Signs: Vital Signs, Last 4 Hours Resp Pulse Ox 09/24/17 15:29 18 92 Results - Laboratory Findings CBC and BMP: 09/24/17 05:11 09/24/17 05:11 ABG ABG pH 7.48 pH Units (7.32-7.45) H 09/24/17 11:05 ABG pCO2 35 mmHg (35-45) 09/24/17 11:05 ABG pO2 64 mmHg (85-104) L 09/24/17 11:05 ABG O2 Saturation 94 % (95-98) L 09/24/17 11:05 Abnormal lab findings: Abnormal lab results Hct 34.7 % (35.3-44.9) L 09/24/17 05:11 ABG pH 7.48 pH Units (7.32-7.45) H 09/24/17 11:05 ABG pO2 64 mmHg (85-104) L 09/24/17 11:05 ABG Total CO2 28 mEq/L (20-26) H 09/24/17 11:05 ABG O2 Saturation 94 % (95-98) L 09/24/17 11:05 Sodium 129 mEq/L (136-145) L 09/24/17 05:11 Chloride 97 mEq/L (98-107) L 09/24/17 05:11 Glucose 169 mg/dL (70-105) H 09/24/17 05:11 Calculated Osmolality 271 (280-300) L 09/24/17 05:11 Troponin I 0.13 ng/mL (< 0.04) H* 09/24/17 05:11 - Microbiology Findings Microbiology Findings: Microbiology, Last 48 Hours 09/23/17 21:40 Legionella Antigen - Final Urine,Clean Catch Streptococcus pneumoniae Antigen (M - Final 09/23/17 20:30 Sputum Culture - Final Sputum - Clinical Findings Intake & Output: Intake & Output 09/24/17 09/24/17 09/24/17 07:59 15:59 23:59 Intake Total 100 / 100 Balance 100 / 100 - Attending Attestation I examined this patient and my medical decision-making was reviewed with the Resident Physician. I agree with the documented findings, disposition and treatment plan as described except to the extent set forth below. We independently had [id number] contact with the patient Patient seen and examined at bedside Labs, radiology, chart personally reviewed. Impression: 1. AECOPD suspected environmental trigger 2. Chronic Rhinosinusitis 3. Environmental Allergies 4. Nicotine Abuse in Remission 5. Recent Hematuria with abnormal CT of left kidney Recs: -D/C Antibiotics as no clear evidence of PNA -Transition to oral glucocoriticoids to taper over 2 weeks -Cont ICS/LABA and Duonebs (inhaler education given) -Wean Fio2 to keep saturation 89-92% with Walking Pulse oximetry prior to d/c -Cont montelukast and loratadine (encouraged more consistent use) -Start intranasal corticosteroid; BID nasal saline irrigation -Annual Low-Dose Screening CT per guidelines (no evidence of malignancy on CT during this admission -Encouraged participation in Pulmonary Rehab at d/c -Renal u/s per radiology recs. Consider Urology consult based upon result. Will defer to primary medicine service for further mngt. Anticipate stable for d/c within next 24 hours She will need outpatient Pulmonary f/u (Dr Cunningham) within 1-2 weeks Thank you for this consultation. Please call with any questions.
[2017-09-24] MEDS ORDERED: Saline Nasal Spray 44 ML BOTTLE NS ONE (16:05)
[2017-09-24] MEDS: *HR* Rivaroxaban 10 MG TABLET PO SCH (16:08)
[2017-09-25] MEDS: 0.9 % Sodium Chloride 1,000 ML IVC SCH (01:25)
[2017-09-25] MEDS: Ipratropium/Albuterol Neb 3 ML IH PRN ×2 (03:31→07:24)
[2017-09-25 05:30] LABS: Basophils % 0.1 %; Hematocrit 29.4 % (35.3-44.9); Immature Granulocytes % 0.7 % (0-4); Lymphocytes # 1.6 K/mcL (0.6-4.6); Mean Corpuscular HGB Conc 33.7 g/dL (31.6-35.5); Mean Corpuscular Volume 83.1 fL (83.0-100.0); Mean Platelet Volume 10.3 fL (9.4-12.4); Monocytes # 1.1 K/mcL (0.0-1.3); Monocytes % 6.8 %; Neutrophils # 13.3 K/mcL (1.6-8.9); Platelet Count 297 K/mcL (140-400); Red Blood Count 3.54 M/mcL (3.82-4.97); Red Cell Distribution Width 14.2 % (11.5-14.5); Segmented Neutrophils % 82.4 %
[2017-09-25 05:42] LABS: Hemoglobin 9.9 g/dL (11.5-15.4)
[2017-09-25 05:49] LABS: BUN/Creatinine Ratio 17 (6-26); Blood Urea Nitrogen 12 mg/dL (8-23); Calcium 8.5 mg/dL (8.6-10.3); Carbon Dioxide 23 mEq/L (23-29); Chloride 102 mEq/L (98-107); Glucose 125 mg/dL (70-105); Osmolality,Calculated 275 (280-300); Potassium 3.5 mEq/L (3.5-5.1); Sodium 132 mEq/L (136-145); eGFR For Non-African Americans > 60 (> 60)
--- NOTE | 2017-09-25 06:41 | Pulmonology Progress Note ---
<MichyayoJose Manuel calvillo W - Last Filed: 09/25/17 09:47> Date of Encounter: 09/25/17 Objective PUL Vital signs: Last Vital Signs Temp 97.9 F 09/25/17 04:09 Pulse 65 09/25/17 04:09 Resp 16 09/25/17 04:09 BP 158/56 09/25/17 04:09 Pulse Ox 94 09/25/17 04:09 Results - Laboratory Findings CBC and BMP: 09/25/17 05:11 09/25/17 05:11 ABG ABG pH 7.48 pH Units (7.32-7.45) H 09/24/17 11:05 ABG pCO2 35 mmHg (35-45) 09/24/17 11:05 ABG pO2 64 mmHg (85-104) L 09/24/17 11:05 ABG O2 Saturation 94 % (95-98) L 09/24/17 11:05 Abnormal lab findings: Abnormal lab results WBC 16.1 K/mcL (4.3-11.1) H D 09/25/17 05:11 RBC 3.54 M/mcL (3.82-4.97) L 09/25/17 05:11 Hgb 9.9 g/dL (11.5-15.4) L D 09/25/17 05:11 Hct 29.4 % (35.3-44.9) L 09/25/17 05:11 Neutrophils # 13.3 K/mcL (1.6-8.9) H 09/25/17 05:11 ABG pH 7.48 pH Units (7.32-7.45) H 09/24/17 11:05 ABG pO2 64 mmHg (85-104) L 09/24/17 11:05 ABG Total CO2 28 mEq/L (20-26) H 09/24/17 11:05 ABG O2 Saturation 94 % (95-98) L 09/24/17 11:05 Sodium 132 mEq/L (136-145) L 09/25/17 05:11 Glucose 125 mg/dL (70-105) H 09/25/17 05:11 Calculated Osmolality 275 (280-300) L 09/25/17 05:11 Calcium 8.5 mg/dL (8.6-10.3) L 09/25/17 05:11 Troponin I 0.13 ng/mL (< 0.04) H* 09/24/17 05:11 - Microbiology Findings Microbiology Findings: Microbiology, Last 48 Hours 09/23/17 21:40 Legionella Antigen - Final Urine,Clean Catch Streptococcus pneumoniae Antigen (M - Final 09/23/17 20:30 Sputum Culture - Final Sputum - Clinical Findings Intake & Output: Intake & Output 09/24/17 09/24/17 09/25/17 15:59 23:59 07:59 Intake Total 100 / 100 1000 / 1000 Balance 100 / 100 1000 / 1000 Weight 58 kg Consult Discharge Plan - Plan Instructions: Prednisone (By mouth), Loratadine (By mouth), Montelukast (By mouth), Fluticasone (Into the nose), Chronic Obstructive Pulmonary Disease (GEN) , Community-acquired Pneumonia (GEN) Referrals: Dennys Mckeon DO [Primary Care Provider] - 10/04/17 9:30 am (Please follow up as schedule ) Jose Manuel Best MD [Partnered Physician] - 10/09/17 2:15 pm (Please follow up as schedule...) Prescriptions: Fluticasone Propionate Nasal [Flonase] 50 mcg NS DAILY 30 Days #30 bottle Loratadine [Allergy Relief] 10 mg PO DAILY 30 Days #30 tab.rapdis Montelukast [Singulair] 10 mg PO DAILY #30 tablet PredniSONE [Deltasone] 20 mg PO DAILY #5 tablet predniSONE [PredniSONE] 10 mg PO DAILY 5 Days #5 tablet predniSONE [PredniSONE] 40 mg PO DAILY #5 tablet - Attending Attestation I examined this patient and my medical decision-making was reviewed with the Resident Physician. I agree with the documented findings, disposition and treatment plan as described except to the extent set forth below. We independently had [id number] contact with the patient Patient seen and examined at bedside Labs, radiology, chart personally reviewed. Impression: AECOPD Chronic Rhinosinusitis Former Smoker Recs: Patient is found some benefit from inhaled acetylcysteine while in patient is reasonable to continue that while she is here and can transition to oral formulation as outpatient Transitioned to Oral glucocorticoids with two-week taper Intranasal steroid and saline rinses along with montelukast cast and loratadine Annual low-dose screening CT scan Walking pulse oximetry prior to discharge Outpatient pulmonary follow-up within 1-2 weeks she is an ideal candidate for pulmonary rehabilitation Pulmonary will sign off please call with questions <Roger Smith - Last Filed: 09/25/17 21:37> Date of Encounter: 09/25/17 Time of Encounter: 08:00 Assessment and Plan (1) COPD (chronic obstructive pulmonary disease) Status: Acute - patient has a Hx of COPD- she was managed on IV Antibiotics (Maxipime 1000mg) , Duonebs, Supplemental O2 while she was in the hospital. - patient is stable for discharge from the Pulmonology standpoint- she denies any worsening sputum production, or increase in the frequency of her cough. - advised intranasal corticosteroid (Flonase), and nasal irrigation BID - advised 2 week of PO Prednisone Taper - she should continue Singulair and Loratadine, 600mg PO BID N-acetylcysteine for her asthma component - Since patient doesn't seem to be manifesting any symptoms of PNA (fever, chills, difficulty breathing) it would be reasonable to discontinue all her Abx - patient should undergo a 6 minute walk test to make sure she doesn't desaturate when she ambulates. - follow up with [facility] as an outpatient - Qualifiers: Qualified Code(s): J44.9 - Chronic obstructive pulmonary disease, unspecified (2) Atrial fibrillation Status: Chronic - patient has a Hx of chronic A fib - management recommendation as per the primary managing team Qualifiers: Atrial fibrillation type: paroxysmal Qualified Code(s): I48.0 - Paroxysmal atrial fibrillation (3) CAD (coronary artery disease) Status: Chronic - patient has a Hx of CAD, s/p stents in May and a Hx of CABG - further management as per the primary managing team. Continue to follow up with Cardiology as an outpatient Qualifiers: Coronary Disease-Associated Artery/Lesion type: bypass graft [place] vs. transplanted heart: [place] heart Associated angina: without angina Qualified Code(s): I25.810 - Atherosclerosis of coronary artery bypass graft(s) without angina pectoris Subjective Principal diagnosis: Acute exacerbation of COPD Interval history: No acute events overnight. Patient denies any SOB or productive sputum . She is satting at Sp2 : 94%, on 2L NC. She denies any new onset of SOB, productive sputum production or wheezing. Patient endorses that she has been coughing more after being off her mucomyst. Patient's recurrent COPD could be complicated by her asthma triggers. With her allergies worsening by moving the lawn at home, it would be advisable for her to refrain from doing that. Along with her SHAHEEN and LABA, patient could also benefit from using 600mg BID N Acetylcysteine to break down her mucous. Objective PUL Vital signs: Last Vital Signs Temp 97.9 F 09/25/17 04:09 Pulse 65 09/25/17 04:09 Resp 16 09/25/17 04:09 BP 158/56 09/25/17 04:09 Pulse Ox 94 09/25/17 04:09 General appearance: no acute distress (A&O*3. ) Effort: normal Auscultation: bilateral: clear Cardiovascular: regular rate and rhythm (normal S1 and S2, no gallops, murmurs or rubs) Gastrointestinal: soft, non-tender, non-distended Extremities: no cyanosis, no edema, no clubbing Results - Laboratory Findings CBC and BMP: 09/25/17 05:11 09/25/17 05:11 ABG ABG pH 7.48 pH Units (7.32-7.45) H 09/24/17 11:05 ABG pCO2 35 mmHg (35-45) 09/24/17 11:05 ABG pO2 64 mmHg (85-104) L 09/24/17 11:05 ABG O2 Saturation 94 % (95-98) L 09/24/17 11:05 Abnormal lab findings: Abnormal lab results WBC 16.1 K/mcL (4.3-11.1) H D 09/25/17 05:11 RBC 3.54 M/mcL (3.82-4.97) L 09/25/17 05:11 Hgb 9.9 g/dL (11.5-15.4) L D 09/25/17 05:11 Hct 29.4 % (35.3-44.9) L 09/25/17 05:11 Neutrophils # 13.3 K/mcL (1.6-8.9) H 09/25/17 05:11 ABG pH 7.48 pH Units (7.32-7.45) H 09/24/17 11:05 ABG pO2 64 mmHg (85-104) L 09/24/17 11:05 ABG Total CO2 28 mEq/L (20-26) H 09/24/17 11:05 ABG O2 Saturation 94 % (95-98) L 09/24/17 11:05 Sodium 132 mEq/L (136-145) L 09/25/17 05:11 Glucose 125 mg/dL (70-105) H 09/25/17 05:11 Calculated Osmolality 275 (280-300) L 09/25/17 05:11 Calcium 8.5 mg/dL (8.6-10.3) L 09/25/17 05:11 Troponin I 0.13 ng/mL (< 0.04) H* 09/24/17 05:11 - Microbiology Findings Microbiology Findings: Microbiology, Last 48 Hours 09/23/17 21:40 Legionella Antigen - Final Urine,Clean Catch Streptococcus pneumoniae Antigen (M - Final 09/23/17 20:30 Sputum Culture - Final Sputum - Clinical Findings Intake & Output: Intake & Output 09/24/17 09/24/17 09/25/17 15:59 23:59 07:59 Intake Total 100 / 100 1000 / 1000 Balance 100 / 100 1000 / 1000 Weight 58 kg - VTE Documentation of Mechanical Device: Intermittent pneumatic compression device
[2017-09-25] MEDS: Budesonide/Formoterol 160/4.5 MDI IH SCH (07:22)
[2017-09-25] MEDS ORDERED: Fluticasone Propionate Nasal 50 MCG/SPRAY BOTTLE NS SCH (09:00)
[2017-09-25] MEDS ORDERED: predniSONE 20 MG TABLET PO SCH (09:00)
[2017-09-25] MEDS: Aspirin 81 MG TAB.CHEW PO SCH (09:44)
[2017-09-25] MEDS: Gabapentin 300 MG CAPSULE PO SCH (09:45)
--- NOTE | 2017-09-25 10:08 | Internal Med Progress Note ---
Hospitalist Progress Note - Encounter Date of Encounter: 09/25/17 Time of Encounter: 10:00 - Subjective Interval History: No acute events overnight - Exam Vitals: Temp Pulse Resp BP Pulse Ox 98.4 F 65 18 153/71 94 09/25/17 07:43 09/25/17 07:43 09/25/17 07:43 09/25/17 07:43 09/25/17 07:43 Exam: General: Well-developed female sitting up in bed in mild distress Chest: B/L coarse breath sounds. scattered rhonchi B/L Heart: Normal S1 & S2; rhythmic. No rubs or murmurs. Abdomen: Non-distended, soft and nontender Extremities: No clubbing, cyanosis or edema. No calf tenderness. Normal distal pulses. Neurological: Awake, alert and oriented to person, place and time. No focal deficits. Psych: Affect appropriate. - Assessment and Plan (1) Acute exacerbation of chronic obstructive airways disease Current Visit: Yes Status: Acute Assessment and Plan: Chest x-ray reviewed independently-shows hyperexpanded lung mitchell, no focal infiltrates, previous sternotomy wires. Continue IV steroids, empiric IV antibiotics-cefepime, scheduled bronchodilators , inhaled Mucomyst, supplemental oxygen and supportive care. Blood cultures, respiratory infection panel, urine Legionella and strep pneumoniae antigen negative. Sputum for Gram stain and culture was inadequate specimen. Ordered ABG due to patient's continued dyspnea- possible mild respiratory alkalosis with pH 7.48, PCO2 35, PO2 64. 08/14. Seen by pulmonary who think she has COPD with component of asthma. found to benefit from inhaled acetylsteine and transition to po as an outpatient. Also transitioned to po steroids with two week taper. 6 minute walk prior to discharge. Conitnue Intranasal steroids and saline rinses along with montelukast and loratidine. Oupatient follow up within 1-2 weeks with pulmonary (2) CAD (coronary artery disease) Current Visit: Yes Status: Chronic Assessment and Plan: History of remote CABG and recent stent placement in May 2017. Continue aspirin, Plavix, statin. Echocardiogram in May shows preserved EF, mild LV diastolic dysfunction, no pulmonary hypertension. (3) Atrial fibrillation Current Visit: Yes Status: Chronic Assessment and Plan: Noted to be on sotalol and anticoagulation with Xarelto at home. Continue. Telemetry monitoring. (4) Hypertension Current Visit: Yes Status: Chronic Assessment and Plan: Blood pressure is acceptable. Not noted to be on antihypertensives at home, monitor closely and use when necessary IV hydralazine. (5) Elevated troponin Current Visit: Yes Status: Acute Assessment and Plan: Review of previous labs show chronic troponin elevation at around 0.25. Serial troponins noted to be decreasing. continue telemetry monitoring. (6) Acute respiratory failure Current Visit: Yes Status: Acute Assessment and Plan: Due to acute bronchitis and COPD. Continue supplemental oxygen, patient would require home oxygen evaluation prior to discharge. (7) Renal mass, left Current Visit: Yes Status: Acute Assessment and Plan: obtain ultrasound to further assess mass in light of reported outpatient hematuria DVT Prophylaxis: on xarelto - Time Spent with Patient Total time spent is greater than 50% in coordination of care (as documented) at patient's floor/unit and/or counseling patient: Internal Medicine: Result - Labs CBC & Chem 7: 09/25/17 05:11 09/25/17 05:11 Labs: Short CBC 09/25/17 Range/Units 05:11 WBC 16.1 H D (4.3-11.1) K/mcL Hgb 9.9 L D (11.5-15.4) g/dL Hct 29.4 L (35.3-44.9) % Plt Count 297 (140-400) K/mcL Neutrophils # 13.3 H (1.6-8.9) K/mcL BMP 09/25/17 05:11 Sodium 132 L Potassium 3.5 Chloride 102 Carbon Dioxide 23 BUN 12 Creatinine 0.70 Glucose 125 H Calcium 8.5 L - ABG Interpretation ABG results: ABG ABG pH 7.48 pH Units (7.32-7.45) H 09/24/17 11:05 ABG pCO2 35 mmHg (35-45) 09/24/17 11:05 ABG pO2 64 mmHg (85-104) L 09/24/17 11:05 ABG O2 Saturation 94 % (95-98) L 09/24/17 11:05 - Impressions Impressions Chest CT 09/24/17 14:30 IMPRESSION: No acute findings are seen to the chest. Likely some mucous plugging to some segmental/subsegmental bronchi to bilateral lower lobes. Mild emphysema. Exophytic foci to the upper pole of the left kidney felt most likely to reflect benign hyperdense cysts, but given attenuation characteristics higher than simple fluid suggest further evaluation with ultrasound to confirm likely benign etiology. D/ / 09/24/2017 14:50:52 Ian Cartwright MD / [email or web address] Interpreting Provider: Ian Cartwright MD - VTE Documentation of Mechanical Device: Intermittent pneumatic compression device Consult Discharge Plan - Plan Referrals: Dennys Mckeon DO [Primary Care Provider] - (2) CAD (coronary artery disease) Qualifiers: Coronary Disease-Associated Artery/Lesion type: bypass graft [place] vs. transplanted heart: [place] heart Associated angina: without angina Qualified Code(s): I25.810 - Atherosclerosis of coronary artery bypass graft(s) without angina pectoris (3) Atrial fibrillation Qualifiers: Atrial fibrillation type: paroxysmal Qualified Code(s): I48.0 - Paroxysmal atrial fibrillation (4) Hypertension Qualifiers: Hypertension type: essential hypertension Qualified Code(s): I10 - Essential (primary) hypertension (6) Acute respiratory failure Qualifiers: Respiratory failure complication: hypoxia Qualified Code(s): J96.01 - Acute respiratory failure with hypoxia
--- NOTE | 2017-09-25 11:17 | Discharge Summary ---
- NOTES TO OUTPATIENT PROVIDER Notes to Outpatient Provider: Follow up with PCP for left kidney lession in light of reported hematuria. Ultrasound shows complex cysts. radiology recommends further studies with CT/MRI Orders not resulted at time of discharge: Pending orders 09/24/17 16:27 Immunoglobulin E Routine 09/25/17 15:00 Retroperitoneal Ultrasound - Complete [US retroperitoneal comp] [US] Routine Date of Encounter: 09/25/17 Time of Encounter: 11:00 - Discharge Diagnosis (1) Acute exacerbation of chronic obstructive airways disease Priority: Primary Status: Acute Assessment and Plan: 67-year-old female with past medical history of COPD, coronary artery disease, with stent placement in May, CABG remotely, atrial fibrillation, carotid endarterectomy. She has a [id number] smoking history but recently quit about a month ago. She also has a occupational exposure history to asbestos. She has a dog at home but no other smokers in the house. She also complains of environmental allergies worsened by mowing the lawn and other activities. She reports a history of repeated episodes of sinusitis and bronchitis that lead to COPD exacerbation and hospitalization. Most recently she had an episode of sinusitis and bronchitis that was treated by her primary care provider with a 5 day course of azithromycin, amoxicillin, oral prednisone. Her symptoms temporarily resolved but then worsened again and she presented to the hospital 2 days ago with symptoms of cough and dyspnea related to COPD exacerbation. She was admitted to the hospital for acute respiratory failure secondary to bronchitis and COPD exacerbation. She was seen by pulmonary who believe her history of repeated exacerbations may mean there is an element of asthma triggers at home that are complicating her treatment. Pulmonary recommend added asthma/sinusitis treatment. She was found to benefit from inhaled acetylsteine and planned to transition to po as an outpatient. She will follow up with pulmonary. Also transitioned to po steroids with two week taper. 6 minute walk test was done prior to discharge and she maintained her sats, and hence does not need home oxygen. She is to continue intranasal steroids and saline rinses along with montelukast and loratidine. Oupatient follow up within 1-2 weeks with pulmonary She also reported some hematuria which occurred a few weeks ago and for which she was treated for a UTI and it resolved. On CT chest , she was however found to have a lesion on her left kidney. Ultrasound to evaluate for renal cell carcinoma in light of mass and reported hematuria. Ultrasound showed complex cysts, however, radiologist recommends CT or MRI to follow up. Has been counseled to follow up with her PCP (2) CAD (coronary artery disease) Priority: Secondary Status: Chronic Qualifiers: Coronary Disease-Associated Artery/Lesion type: bypass graft [place] vs. transplanted heart: [place] heart Associated angina: without angina Qualified Code(s): I25.810 - Atherosclerosis of coronary artery bypass graft(s) without angina pectoris (3) Atrial fibrillation Priority: Secondary Status: Chronic Qualifiers: Atrial fibrillation type: paroxysmal Qualified Code(s): I48.0 - Paroxysmal atrial fibrillation (4) Hypertension Priority: Secondary Status: Chronic Qualifiers: Hypertension type: essential hypertension Qualified Code(s): I10 - Essential (primary) hypertension (5) Elevated troponin Priority: Secondary Status: Acute (6) Acute respiratory failure Priority: Secondary Status: Acute Qualifiers: Respiratory failure complication: hypoxia Qualified Code(s): J96.01 - Acute respiratory failure with hypoxia (7) Renal mass, left Priority: Secondary Status: Acute Hospital course: Ms. Perez is a 67 year old female - Time Spent with Patient Total time spent providing and/or coordinating discharge services: - Discharge Medications Prescriptions: Fluticasone Propionate Nasal [Flonase] 50 mcg NS DAILY 30 Days #30 bottle Loratadine [Allergy Relief] 10 mg PO DAILY 30 Days #30 tab.rapdis Montelukast [Singulair] 10 mg PO DAILY #30 tablet PredniSONE [Deltasone] 20 mg PO DAILY #5 tablet predniSONE [PredniSONE] 10 mg PO DAILY 5 Days #5 tablet predniSONE [PredniSONE] 40 mg PO DAILY #5 tablet Home Medications: Albuterol Sulfate [Albuterol Inhaler] 2 puff IH Q6HR 11/15/14 [History] Atorvastatin [Lipitor] 40 mg PO QPM 11/15/14 [History] Gabapentin [Neurontin] 600 mg PO BID 11/15/14 [History] Montelukast [Singulair] 10 mg PO DAILY PRN 11/15/14 [History] Omeprazole [PriLOSEC] 20 mg PO DAILY 11/15/14 [History] Aspirin 81 mg PO DAILY 30 Days tab.chew 11/17/14 [Rx] Rivaroxaban [Xarelto] 20 mg PO 1700 30 Days tablet 11/17/14 [Rx] Budesonide/Formoterol 160/4.5 [Symbicort 160/4.5] 2 puff IH BIDR 06/08/17 [ History] Ferrous Sulfate 325 mg PO DAILY 06/08/17 [History] Risedronate Sodium [Actonel] 35 mg PO MO 06/08/17 [History] Tramadol HCl [Ultram] 50 mg PO Q8H PRN 06/08/17 [History] Clopidogrel [Plavix] 75 mg PO DAILY #30 tablet 06/14/17 [Rx] Sotalol [Betapace] 40 mg PO Q12H #15 tablet 06/14/17 [Rx] Ipratropium/Albuterol Neb [Duoneb] 3 ml IH Q6HR PRN 09/23/17 [History] Fluticasone Propionate Nasal [Flonase] 50 mcg NS DAILY 30 Days #30 bottle [Rx] Loratadine [Allergy Relief] 10 mg PO DAILY 30 Days #30 tab.rapdis 09/25/17 [Rx] Montelukast [Singulair] 10 mg PO DAILY #30 tablet 09/25/17 [Rx] PredniSONE [Deltasone] 20 mg PO DAILY #5 tablet 09/25/17 [Rx] predniSONE [PredniSONE] 10 mg PO DAILY 5 Days #5 tablet 09/25/17 [Rx] predniSONE [PredniSONE] 40 mg PO DAILY #5 tablet 09/25/17 [Rx] Allergies/Adverse Reactions: 3 Allergy/AdvReac Type Severity Reaction Status Date / Time codeine AdvReac See Verified 09/23/17 13:09 Comments Date of admission: 09/23/17 17:53 Primary care physician: Conrad Mckeon DO Consults: 09/24/17 13:39 Consult to Pulmonology [CONS] Routine Consulting Provider: [facility] Reason for Consult: Acute COPD/bronchitis with persistent dyspnea, orthopnea ; ABG- 7.48/64 Call Completed: Yes - Constitutional Vitals: Temp Pulse Resp BP Pulse Ox 98.4 F 65 18 153/71 94 09/25/17 07:43 09/25/17 07:43 09/25/17 07:43 09/25/17 07:43 09/25/17 07:43 General appearance: Present: mild distress, A&O X 3, answers questions appropriately Exam: General: Well-developed female sitting up in bed in mild distress Chest: B/L coarse breath sounds. scattered rhonchi B/L Heart: Normal S1 & S2; rhythmic. No rubs or murmurs. Abdomen: Non-distended, soft and nontender Extremities: No clubbing, cyanosis or edema. No calf tenderness. Normal distal pulses. Neurological: Awake, alert and oriented to person, place and time. No focal deficits. Psych: Affect appropriate. - Head Head exam: Present: atraumatic, normocephalic - Eye Eye exam: Present: PERRL, conjuntiva pink, sclera anicteric Pupils: Present: PERRL - Neck Neck exam general surgery: Present: supple, trachea midline. Absent: lymphadenopathy - Respiratory Respiratory exam: Present: CTAB. Absent: accessory muscle use, rales, rhonchi, wheezes - Cardiovascular Cardiovascular exam: Present: RRR, +S1, +S2. Absent: diastolic murmur, gallop, rubs, systolic murmur - GI/Abdominal GI/Abdominal exam: Present: normal bowel sounds, soft, no peritoneal signs. Absent: distended, tenderness - Extremities Exam Extremities exam: Present: warm, radial pulses palpable and symmetrical. Absent : calf tenderness, cyanotic, pedal edema - Neurological Exam Neurological exam: Present: CN II-XII intact, oriented X3, no focal deficits. Absent: pronater drift, facial droop, speech deficit - Skin Skin exam: Present: dry, intact - Patient Status Disposition: Home, Self-Care Condition: Good - Discharge Instructions Follow Up With: Dennys Mckeon DO [Primary Care Provider] - 10/04/17 9:30 am (Please follow up as schedule ) Jose Manuel Best MD [Partnered Physician] - 10/09/17 2:15 pm (Please follow up as schedule...) - VTE Documentation of Mechanical Device: Intermittent pneumatic compression device
[2017-09-25 11:40] VITALS: BP 148/52
[2017-09-25] MEDS: *HR* Rivaroxaban 10 MG TABLET PO SCH (18:35)
== END 2017-09-25 19:00 | disposition home or self-care (01) | DRG 202 ==
LOC: 2ANU 13:00 → EMEROOARM 13:00 → 2ANU 17:26 → SUATTDRO 17:53
PROVIDERS: ADMIT Internal Medicine; ATTEND Internal Medicine

== ENCOUNTER 2018-11-25 11:55 | Inpatient (IN) ==
[2018-11-25 12:40] LABS: BUN/Creatinine Ratio 13 (6-26); Blood Urea Nitrogen 10 mg/dL (8-23); Calcium 9.2 mg/dL (8.6-10.3); Carbon Dioxide 27 mEq/L (23-29); Chloride 103 mEq/L (98-107); Glucose 92 mg/dL (70-105); Osmolality,Calculated 283 (280-300); Potassium 3.7 mEq/L (3.5-5.1); Sodium 137 mEq/L (136-145); Troponin I < 0.03 ng/mL (< 0.04); eGFR For African Americans > 60 (> 60); eGFR For Non-African Americans > 60 (> 60)
[2018-11-25] MEDS ORDERED: MOM Conc 10 ML UD.LIQ PO PRN (16:18)
[2018-11-25] MEDS ORDERED: Naloxone 0.4 MG/ML INJ IVP PRN (16:18)
[2018-11-25] MEDS ORDERED: Albuterol 2.5 MG/3 ML NEBULIZER IH PRN (16:22)
[2018-11-25] MEDS ORDERED: Melatonin 3 MG TABLET PO PRN (16:23)
[2018-11-25] MEDS ORDERED: traMADol 50 MG TABLET PO PRN (16:23)
[2018-11-25] MEDS ORDERED: NON-FORMULARY MEDICATION 1 EACH EACH (Risedronate Sodium [Actonel] 35 MG) PO SCH (16:30)
[2018-11-25 17:12] LABS: Troponin I < 0.03 ng/mL (< 0.04)
[2018-11-25 17:41] LABS: Alanine Aminotransferase 19 Units/L (7-52); Albumin 3.9 g/dL (3.5-5.7); Albumin/Globulin Ratio 1.6 (1.1-2.2); Alkaline Phosphatase 110 Units/L (34-104); Aspartate Amino Transferase 22 Units/L (13-39); Bilirubin,Direct 0.1 mg/dL (0.0-0.2); Bilirubin,Indirect 0.4 mg/dL (0.0-1.2); Bilirubin,Total 0.5 mg/dL (0.3-1.0); Globulin 2.4 g/dL (2.4-3.5); Total Protein 6.3 g/dL (6.4-8.9)
[2018-11-25] MEDS: *HR* Rivaroxaban 10 MG TABLET PO SCH (18:18)
[2018-11-25] MEDS: Budesonide/Formoterol 160/4.5 1 PUFF INH IH SCH (19:51)
[2018-11-25] MEDS: Gabapentin 300 MG CAPSULE PO SCH (20:17)
[2018-11-25] MEDS ORDERED: NON-FORMULARY MEDICATION 1 EACH EACH (Glucosamine Sulfate Dipot Chlr [Glucosamine] 1,000 M PO SCH (21:00)
[2018-11-26 04:48] LABS: Hematocrit 34.7 % (35.3-44.9); Hemoglobin 11.1 g/dL (11.5-15.4); Mean Corpuscular Hemoglobin 30.5 pg (28.0-33.3); Mean Corpuscular Volume 95.3 fL (83.0-100.0); Mean Platelet Volume 10.4 fL (9.4-12.4); Platelet Count 312 K/mcL (140-400); Red Blood Count 3.64 M/mcL (3.82-4.97); White Blood Count 8.1 K/mcL (4.3-11.1)
[2018-11-26 05:05] LABS: BUN/Creatinine Ratio 16 (6-26); Blood Urea Nitrogen 12 mg/dL (8-23); Carbon Dioxide 28 mEq/L (23-29); Chloride 103 mEq/L (98-107); Glucose 96 mg/dL (70-105); Osmolality,Calculated 282 (280-300); Potassium 3.5 mEq/L (3.5-5.1); Sodium 136 mEq/L (136-145); eGFR For African Americans > 60 (> 60); eGFR For Non-African Americans > 60 (> 60)
[2018-11-26] MEDS ORDERED: NIFEdipine 10 MG CAPSULE PO ONE (06:19)
[2018-11-26] MEDS: Budesonide/Formoterol 160/4.5 1 PUFF INH IH SCH ×2 (07:51→20:21)
[2018-11-26] MEDS: Multivit/Ca/Min/Fe/FA 1 TAB TABLET PO SCH (08:20)
[2018-11-26] MEDS: Cholecalciferol (D-3) 1,000 UNIT (25MCG) TABLET PO SCH (08:20)
[2018-11-26] MEDS: Gabapentin 300 MG CAPSULE PO SCH ×2 (08:21→20:51)
[2018-11-26] MEDS ORDERED: Tiotropium 18 MCG inhalation IH SCH (09:00)
[2018-11-26] MEDS: *HR* Rivaroxaban 10 MG TABLET PO SCH (17:14)
[2018-11-26] MEDS: *HR* Acetylcysteine 20% 600 MG/3 ML ORAL SYRINGE PO SCH (20:37)
[2018-11-27 01:15] LABS: Hematocrit 33.5 % (35.3-44.9); Mean Corpuscular HGB Conc 32.8 g/dL (31.6-35.5); Mean Corpuscular Hemoglobin 30.9 pg (28.0-33.3); Mean Corpuscular Volume 94.1 fL (83.0-100.0); Mean Platelet Volume 10.6 fL (9.4-12.4); Platelet Count 288 K/mcL (140-400); Red Blood Count 3.56 M/mcL (3.82-4.97); Red Cell Distribution Width 12.9 % (11.5-14.5); White Blood Count 6.5 K/mcL (4.3-11.1)
[2018-11-27 01:36] LABS: BUN/Creatinine Ratio 16 (6-26); Blood Urea Nitrogen 14 mg/dL (8-23); Carbon Dioxide 27 mEq/L (23-29); Chloride 102 mEq/L (98-107); Glucose 99 mg/dL (70-105); Osmolality,Calculated 281 (280-300); Potassium 3.6 mEq/L (3.5-5.1); Sodium 135 mEq/L (136-145); eGFR For African Americans > 60 (> 60); eGFR For Non-African Americans > 60 (> 60)
[2018-11-27] MEDS: Budesonide/Formoterol 160/4.5 1 PUFF INH IH SCH ×2 (08:04→20:36)
[2018-11-27] MEDS: Multivit/Ca/Min/Fe/FA 1 TAB TABLET PO SCH (08:50)
[2018-11-27] MEDS: Gabapentin 300 MG CAPSULE PO SCH ×2 (08:50→20:03)
[2018-11-27] MEDS: Cholecalciferol (D-3) 1,000 UNIT (25MCG) TABLET PO SCH (08:50)
[2018-11-27] MEDS: *HR* Acetylcysteine 20% 600 MG/3 ML ORAL SYRINGE PO SCH (13:10)
[2018-11-27] MEDS: *HR* Rivaroxaban 10 MG TABLET PO SCH (18:07)
[2018-11-28 01:41] LABS: Hematocrit 33.4 % (35.3-44.9); Hemoglobin 10.9 g/dL (11.5-15.4); Mean Corpuscular HGB Conc 32.6 g/dL (31.6-35.5); Mean Corpuscular Hemoglobin 30.9 pg (28.0-33.3); Mean Corpuscular Volume 94.6 fL (83.0-100.0); Mean Platelet Volume 10.7 fL (9.4-12.4); Platelet Count 303 K/mcL (140-400); Red Blood Count 3.53 M/mcL (3.82-4.97); Red Cell Distribution Width 13.2 % (11.5-14.5); White Blood Count 7.1 K/mcL (4.3-11.1)
[2018-11-28 02:15] LABS: Carbon Dioxide 24 mEq/L (23-29); Chloride 104 mEq/L (98-107); Potassium 3.6 mEq/L (3.5-5.1); Sodium 135 mEq/L (136-145)
[2018-11-28 02:16] LABS: BUN/Creatinine Ratio 17 (6-26); Blood Urea Nitrogen 12 mg/dL (8-23); Glucose 94 mg/dL (70-105); Osmolality,Calculated 280 (280-300); eGFR For African Americans > 60 (> 60); eGFR For Non-African Americans > 60 (> 60)
[2018-11-28] MEDS: Budesonide/Formoterol 160/4.5 1 PUFF INH IH SCH ×2 (07:48→20:30)
[2018-11-28] MEDS ORDERED: amLODIPine 5 MG TABLET PO SCH (09:00)
[2018-11-28] MEDS: Cholecalciferol (D-3) 1,000 UNIT (25MCG) TABLET PO SCH (09:09)
[2018-11-28] MEDS: Gabapentin 300 MG CAPSULE PO SCH ×2 (09:09→20:15)
[2018-11-28] MEDS: Multivit/Ca/Min/Fe/FA 1 TAB TABLET PO SCH (09:10)
[2018-11-28] MEDS: *HR* Rivaroxaban 10 MG TABLET PO SCH (17:35)
[2018-11-28] MEDS ORDERED: FLU Vac QV 19-20 (6Month+)/PF 0.5 ML SYRINGE IM ONE (20:00)
[2018-11-28 21:29] VITALS: BP 175/69
== END 2018-11-28 21:54 | disposition home or self-care (01) | DRG 309 ==
LOC: EMEROOARM 11:55 → 2NENU 11:55 → SUATTDRO 14:02 → 2NENU 14:49 → SUATTDRO 11-26 14:22
PROVIDERS: ADMIT Family Medicine; ATTEND Internal Medicine